=== PATIENT | female | born 1960 | race Caucasian/White ===

== ENCOUNTER 2016-08-27 21:03 | Inpatient (IN) | payer OTHER ==
[2016-08-27 21:21] VITALS: BMI 34.0
--- NOTE | 2016-08-27 21:40 | PDOC ---
History of Present Illness <Justyn Buchanan - Last Filed: 08/27/16 21:40> <Clemente Diaz - Last Filed: 08/27/16 21:40> - General History Source: Patient Exam Limitations: No Limitations - History of Present Illness Initial Comments: 08/27/16 22:00 56-year-old female with significant past medical for diabetes, liver cirrhosis and significant surgical history of x 4, spleenectomy, cholecystectomy , cardiac ablation. She is here with complaints of left lower leg/padilla pain, status post slipping and falling down 5-6 stairs at home. She states that stairs are carpeted and she did not feel dizzy or have a headache at time of fall. She denies any blurry vision, headache, no LOC, no fever, no chills, no dypsnea, no dysphagia, no tingling, no numbness, no motor or sensory deficits noted. Occurred: reports: just prior to arrival Severity: reports: severe Pain Location: reports: lower extremity Method of Injury: Yes: fall Modifying Factors: improves with: None Loss of Consciousness: no loss of consciousness Associated Symptoms (Fall): denies symptoms <Declan Villa - Last Filed: 08/27/16 23:04> - General Chief Complaint: Pain, Acute Stated Complaint: FELL DOWNSTAIRS Time Seen by Provider: 08/27/16 21:25 Past History - Past Medical History Anemia: No Asthma: Yes Cancer: No Cardiac Disorders: Yes (PALPITATION) CVA: No COPD: Yes CHF: No Dementia: No Diabetes: Yes GI Disorders: Yes Disorders: No HTN: Yes Hypercholesterolemia: No Liver Disease: Yes (cirrhosis, hep c) Seizures: No Thyroid Disease: No Lung CA: (CIRRHOSIS--ALCOHOLIC. S/P DRINKER 21 YRS AGO) - Surgical History Abdominal Surgery: Yes (SPLENECTOMY) Appendectomy: No Cardiac Surgery: No Cholecystectomy: Yes Lung Surgery: No Neurologic Surgery: No Orthopedic Surgery: No - Immunization History Immunization Up to Date: Yes - Psycho/Social/Smoking Cessation Hx Anxiety: No Suicidal Ideation: No Smoking History: Never smoked Have you smoked in the past 12 months: No Hx Alcohol Use: No Drug/Substance Use Hx: No Substance Use Type: None Hx Substance Use Treatment: No <Justyn Buchanan - Last Filed: 12/31/16 21:40> <Clemente Diaz - Last Filed: 08/27/16 21:40> <Declan Villa - Last Filed: 08/27/16 23:04> - Past Medical History Allergies/Adverse Reactions: Allergies Allergy/AdvReac Type Severity Reaction Status Date / Time No Known Allergies Allergy Verified 08/27/16 21:19 Home Medications: Ambulatory Orders Budesonide/Formeterol Fumarate [SYMBICORT 160/4.5mcg -] 1 inh IH DAILY 12/25/13 Citalopram Hydrobromide [Celexa -] 20 mg PO DAILY 12/25/13 Montelukast Na [Singulair -] 10 mg PO HS 12/25/13 Metformin HCl [Glucophage] 1,000 mg PO BID 08/20/15 Amlodipine Besylate 10 mg PO DAILY 12/13/15 Albuterol 2.5/Ipratropium 0.5 [Duoneb -] 1 amp NEB Q6H PRN #0 amp 12/15/15 Albuterol 0.083% Nebulizer Rabia [Ventolin 0.083% Nebulizer Soln -] 1 neb NEB Q6H PRN 08/08/16 Cetirizine HCl [Zyrtec -] 10 mg PO DAILY 08/08/16 Fluticasone Prop 0.05% Nasal [Flonase -] 1 - 2 spray NS BID 08/08/16 Gabapentin 600 mg PO TID 08/08/16 Hydrochlorothiazide [Hctz -] 12.5 mg PO DAILY 08/08/16 Loratadine [Claritin] 10 mg PO DAILY 08/08/16 Losartan Potassium 100 mg PO DAILY 08/08/16 Rifaximin [Xifaxan -] 550 mg PO BID 08/08/16 Tramadol HCl [Ultram -] 50 mg PO Q8H PRN 08/08/16 Aspirin [Aspirin EC] 81 mg PO PRN PRN #14 tablet. 08/09/16 *Physical Exam - Vital Signs Last Vital Signs Temp Pulse Resp BP Pulse Ox 98.3 F 78 20 138/75 100 08/27/16 21:17 08/27/16 21:17 08/27/16 21:17 08/27/16 21:17 08/27/16 21:20 <Justyn Buchanan - Last Filed: 08/27/16 21:40> - Vital Signs Last Vital Signs Temp Pulse Resp BP Pulse Ox 98.3 F 78 20 138/75 100 08/27/16 21:17 08/27/16 21:17 08/27/16 21:17 08/27/16 21:17 08/27/16 21:20 <EmilyClemente - Last Filed: 08/27/16 21:40> - Vital Signs Last Vital Signs Temp Pulse Resp BP Pulse Ox 98.3 F 78 20 138/75 100 08/27/16 21:17 08/27/16 21:17 08/27/16 21:17 08/27/16 21:17 08/27/16 21:20 - Physical Exam General Appearance: Yes: Nourished HEENT: positive: SIRISHA Neck: positive: Trachea midline, Normal Thyroid, Supple Respiratory/Chest: positive: Lungs Clear, Normal Breath Sounds, Respiratory Distress, Accessory Muscle Use Cardiovascular: positive: Regular Rhythm, Regular Rate, S1, S2 Vascular Pulses: Doralis-Pedis (L): 4+ Gastrointestinal/Abdominal: positive: Soft Musculoskeletal: positive: Decreased Range of Motion (Left lower leg tenderness. 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 Patient had x-rays done which shows comminuted spiral distal fracture of the left tibia. labs drawn with results pending. Chest x-ray done for preop. Mills inserted he in ER. Pain medication given with moderate control. 22:15H Dr Montiel consulted with recommendations appreciated. Splint applied here in ER. Patient to be admitted to Hospitalist service with ortho consult on 08/28/16. <Declan Villa - Last Filed: 08/27/16 23:04> Medical Decision Making - Medical Decision Making 08/27/16 23:03 Patient to be admitted to hospital for surgical fixation of left tibial fracture. <Declan Villa - Last Filed: 08/27/16 23:04> *DC/Admit/Observation/Transfer <Justyn Buchanan - Last Filed: 08/27/16 21:40> - Attestations Scribe Attestion: 08/27/16 21:40 Documentation prepared by Clemente Diaz, acting as resident medical officer for Justyn Buchanan MD. <Clemente Diaz - Last Filed: 08/27/16 21:40> - Discharge Dispostion Admit: Yes <Declan Villa - Last Filed: 08/27/16 23:04> Diagnosis at time of Disposition: Fall (on) (from) other stairs and steps, initial encounter Closed tibial fracture Qualifiers: Encounter type: initial encounter Tibia location: shaft Fracture morphology: oblique Fracture alignment: nondisplaced Laterality: left Qualified Code(s): S82.235A - Nondisplaced oblique fracture of shaft of left tibia, initial encounter for closed fracture - Discharge Dispostion Condition at time of disposition: Stable - Referrals Referrals: Leilani Ledbetter MD [Primary Care Provider] -
[2016-08-27] MEDS ORDERED: KETOROLAC TROMETHAMINE 60 MG/2 ML VIAL IM ONE (21:51)
[2016-08-27] MEDS ORDERED: morphine CARPU-JECT 2 MG/1 ML DISP.SYRIN IM ONE (21:51)
[2016-08-27] MEDS ORDERED: morphine CARPU-JECT 2 MG/1 ML DISP.SYRIN ONE (21:55)
[2016-08-27] MEDS ORDERED: HYDROmorphone HCL CARPU-JECT 2 MG/1 ML DISP.SYRIN IVPUSH ONE (22:48)
[2016-08-27] MEDS ORDERED: HYDROmorphone HCL CARPU-JECT 2 MG/1 ML DISP.SYRIN ONE (22:50)
[2016-08-27] MEDS: SODIUM CHLORIDE 1,000 ML IV SCH (22:57)
[2016-08-27 23:19] LABS: BASOPHIL 0.6 % (0-2.0); EOSINOPHIL 1.5 % (0-4.5); MCH 28.8 pg (25.7-33.7); MCHC 32.2 g/dl (32.0-36.0); MEAN CELL VOLUME 89.3 fl (80-96); MEAN PLT VOLUME 9.8 fl (7.5-11.1); NEUTROPHILS 37.6 % (42.8-82.8); PLATELET COUNT 223 K/MM3 (134-434); RDW 14.7 % (11.6-15.6); WHITE BLOOD COUNT 9.7 K/mm3 (4.0-10.0)
[2016-08-27 23:24] LABS: INR 1.2 (0.82-1.09); PROTHROMBIN TIME (PATIENT) 13.3 SEC (9.98-11.88)
--- NOTE | 2016-08-27 23:25 | PDOC ---
*Physical Exam - Vital Signs Last Vital Signs Temp Pulse Resp BP Pulse Ox 98.3 F 78 20 138/75 100 08/27/16 21:17 08/27/16 21:17 08/27/16 21:17 08/27/16 21:17 08/27/16 21:20 - Physical Exam Comments: 08/27/16 23:25 The patient was examined by [MATY Villa] under my direct supervision. I personally evaluated the patient. I concur with the above findings and the plan of care. ED Treatment Course - LABORATORY CBC & Chemistry Diagram: 08/27/16 22:40 08/27/16 22:40 - Medications Given in the ED: ED Medications Discontinued Medications Generic Name Dose Route Start Last Admin Trade Name Freq PRN Reason Stop Dose Admin Hydromorphone HCl 2 mg 08/27/16 22:48 08/27/16 22:57 Dilaudid Injection - IVPUSH 08/27/16 22:49 2 mg ONCE ONE Administration Morphine Sulfate 2 mg 08/27/16 21:51 08/27/16 21:53 Morphine Injection - IM 08/27/16 21:52 2 mg ONCE ONE Administration *DC/Admit/Observation/Transfer Diagnosis at time of Disposition: Fall (on) (from) other stairs and steps, initial encounter Closed tibial fracture Qualifiers: Encounter type: initial encounter Tibia location: shaft Fracture morphology: oblique Fracture alignment: nondisplaced Laterality: left Qualified Code(s): S82.235A - Nondisplaced oblique fracture of shaft of left tibia, initial encounter for closed fracture - Discharge Dispostion Condition at time of disposition: Stable
[2016-08-27 23:26] LABS: ACTIVATED PTT 35.6 SECONDS (26.9-34.4)
--- NOTE | 2016-08-27 23:30 | PN ---
<Velma Del Angel - Last Filed: 08/27/16 23:30> Teaching Attending Note Name of Resident: Beverly Rodriguez ATTENDING PHYSICIAN STATEMENT I saw and evaluated the patient. I reviewed the resident's note and discussed the case with the resident. I agree with the resident's findings and plan as documented. SUBJECTIVE: OBJECTIVE: ASSESSMENT AND PLAN: <Eric Ricks - Last Filed: 08/28/16 02:48> Teaching Attending Note Name of Resident: Beverly Rodriguez ATTENDING PHYSICIAN STATEMENT I saw and evaluated the patient. I reviewed the resident's note and discussed the case with the resident. I agree with the resident's findings and plan as documented. SUBJECTIVE: 56 year old female, with past medical history of diabetes, liver cirrhosis, HTN , COPD, hep. C , depression, fibromyalgia, neuropathy, past surgical history of (x4), splenectomy, cholecystectomy and cardiac ablation. Presents with left lower leg pain after falling down 6 stairs at her home. OBJECTIVE: GENERAL: Awake, alert, and fully oriented, in no acute distress HEENT: Atraumatic. PERRLA, EOMI. Moist mucosa. No JVD LUNGS: No distress, speaks full sentences, clear to auscultation bilaterally HEART: Regular rate and rhythm, normal S1 and S2, no murmurs, rubs or gallops, peripheral pulses normal and equal bilaterally. ABDOMEN: Soft, nontender, normoactive bowel sounds. No guarding, no rebound. No masses EXTREMITIES: +Left lower extremity fracture at tibia, Limited range of motion of left leg, no edema. No clubbing or cyanosis. NEUROLOGICAL: Cranial nerves II through XII grossly intact. Normal speech, no focal sensorimotor deficits SKIN: Warm, Dry, normal turgor, no rashes or lesions noted. X-ray left lower extremity Impression: Comminuted spiral distal fracture left tibia CBCD WBC 9.7 K/mm3 (4.0-10.0) D 08/27/16 22:40 RBC 5.00 M/mm3 (3.60-5.2) 08/27/16 22:40 Hgb 14.4 GM/dL (10.7-15.3) 08/27/16 22:40 Hct 44.6 % (32.4-45.2) 08/27/16 22:40 MCV 89.3 fl (80-96) 08/27/16 22:40 MCHC 32.2 g/dl (32.0-36.0) 08/27/16 22:40 RDW 14.7 % (11.6-15.6) 08/27/16 22:40 Plt Count 223 K/MM3 (134-434) 08/27/16 22:40 MPV 9.8 fl (7.5-11.1) 08/27/16 22:40 CMP Sodium 140 mmol/L (136-145) 08/27/16 22:40 Potassium 4.4 mmol/L (3.5-5.1) 08/27/16 22:40 Chloride 99 mmol/L (98-107) 08/27/16 22:40 Carbon Dioxide 29 mmol/L (21-32) 08/27/16 22:40 Anion Gap 12 (8-16) 08/27/16 22:40 BUN 12 mg/dL (7-18) D 08/27/16 22:40 Creatinine 0.7 mg/dL (0.55-1.02) 08/27/16 22:40 Creat Clearance w eGFR > 60 (>60) 08/27/16 22:40 Calcium 9.2 mg/dL (8.5-10.1) 08/27/16 22:40 Total Bilirubin 0.9 mg/dL (0.2-1.0) D 08/27/16 22:40 AST 58 U/L (15-37) H 08/27/16 22:40 ALT 55 U/L (12-78) 08/27/16 22:40 Alkaline Phosphatase 177 U/L (45-117) H 08/27/16 22:40 Total Protein 8.0 g/dl (6.4-8.2) 08/27/16 22:40 Albumin 3.6 g/dl (3.4-5.0) 08/27/16 22:40 ASSESSMENT AND PLAN: 56 year old female, with cirrhosis, HTN, diabetes, presents s/p fall Left tibial fracture NPO IVF Type and Screen Coags Ortho consult Pain control 2.) Diabetes Fingerstick Q4 Hold metformin RAISS 3.) Hypertension Continue home meds 4.) COPD Not in exacerbation Continue home meds 5.) Cirrhosis, History of hep. C Continue home meds 6.) Depression Continue home meds 7.) DVT prophylaxis Low risk, prophylaxis after procedure as per ortho Admit to [facility] Documentation prepared by Eric Ricks, acting as medical insurance biller for Velma Del Angel D.O.
[2016-08-28] MEDS ORDERED: ALBUTEROL SO4 0.083% IH SOL 2.5 MG/3 ML VIAL.NEB. NEB PRN (00:18)
[2016-08-28] MEDS ORDERED: traMADol HCL 50 MG TABLET PO PRN (00:18)
[2016-08-28 00:44] LABS: ALBUMIN 3.6 g/dl (3.4-5.0); ANION GAP 12 (8-16); BILIRUBIN,TOTAL 0.9 mg/dL (0.2-1.0); CALCIUM 9.2 mg/dL (8.5-10.1); CO2 29 mmol/L (21-32); CREATININE 0.7 mg/dL (0.55-1.02); GLUCOSE,RANDOM 113 mg/dL (74-106); SGOT/AST 58 U/L (15-37); SGPT/ALT 55 U/L (12-78)
[2016-08-28 00:46] LABS: ALK PHOS 177 U/L (45-117)
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
[2016-08-28] MEDS ORDERED: traZODone HCL 50 MG TABLET (FP) PO ONE (02:04)
[2016-08-28] MEDS ORDERED: HYDROmorphone HCL CARPU-JECT 2 MG/1 ML DISP.SYRIN IVPB ONE (04:14)
[2016-08-28] MEDS: INSULIN SLIDING SCALE (NOVOLOG) 1 VIAL SQ SCH ×4 (06:13→22:43)
[2016-08-28] MEDS: GABAPENTIN 300 MG CAPSULE (FP) PO SCH ×3 (06:14→22:41)
[2016-08-28] MEDS: ALBUTEROL SO4 2.5/IPRATROPIUM 0.5 INH SOL 3 ML VIAL.NEB. NEB SCH ×4 (06:52→23:27)
--- NOTE | 2016-08-28 08:52 | PN ---
Physical Exam: SUBJECTIVE: Patient seen and examined patient is happy that she is not having surgery. LLE cast in place OBJECTIVE: Vital Signs Temperature 98 F 08/28/16 07:54 Pulse Rate 60 08/28/16 07:54 Respiratory Rate 16 08/28/16 07:54 Blood Pressure 93/47 08/28/16 07:54 O2 Sat by Pulse Oximetry (%) 99 08/27/16 23:37 GENERAL: The patient is awake, alert, and fully oriented, in no acute distress. HEAD: Normal with no signs of trauma. EYES: PERRL, extraocular movements intact, sclera anicteric, conjunctiva clear. No ptosis. ENT: Ears normal, nares patent, oropharynx clear without exudates, moist mucous membranes. NECK: Trachea midline, full range of motion, supple. LUNGS: Breath sounds equal, clear to auscultation bilaterally, no wheezes, no crackles, no accessory muscle use. HEART: Regular rate and rhythm, S1, S2 without murmur, rub or gallop. ABDOMEN: Soft, nontender, nondistended, normoactive bowel sounds, no guarding, no rebound, no hepatosplenomegaly, no masses. EXTREMITIES: 2+ pulses, warm, well-perfused, no edema. LLe cast in place NEUROLOGICAL: Cranial nerves II through XII grossly intact. Normal speech, gait not observed. PSYCH: Normal mood, normal affect. SKIN: Warm, dry, normal turgor, no rashes or lesions noted CBCD WBC 9.7 K/mm3 (4.0-10.0) D 08/27/16 22:40 RBC 5.00 M/mm3 (3.60-5.2) 08/27/16 22:40 Hgb 14.4 GM/dL (10.7-15.3) 08/27/16 22:40 Hct 44.6 % (32.4-45.2) 08/27/16 22:40 MCV 89.3 fl (80-96) 08/27/16 22:40 MCHC 32.2 g/dl (32.0-36.0) 08/27/16 22:40 RDW 14.7 % (11.6-15.6) 08/27/16 22:40 Plt Count 223 K/MM3 (134-434) 08/27/16 22:40 MPV 9.8 fl (7.5-11.1) 08/27/16 22:40 CMP Sodium 140 mmol/L (136-145) 08/27/16 22:40 Potassium 4.4 mmol/L (3.5-5.1) 08/27/16 22:40 Chloride 99 mmol/L (98-107) 08/27/16 22:40 Carbon Dioxide 29 mmol/L (21-32) 08/27/16 22:40 Anion Gap 12 (8-16) 08/27/16 22:40 BUN 12 mg/dL (7-18) D 08/27/16 22:40 Creatinine 0.7 mg/dL (0.55-1.02) 08/27/16 22:40 Creat Clearance w eGFR > 60 (>60) 08/27/16 22:40 Random Glucose 113 mg/dL (74-106) H D 08/27/16 22:40 Calcium 9.2 mg/dL (8.5-10.1) 08/27/16 22:40 Total Bilirubin 0.9 mg/dL (0.2-1.0) D 08/27/16 22:40 AST 58 U/L (15-37) H 08/27/16 22:40 ALT 55 U/L (12-78) 08/27/16 22:40 Alkaline Phosphatase 177 U/L (45-117) H 08/27/16 22:40 Total Protein 8.0 g/dl (6.4-8.2) 08/27/16 22:40 Albumin 3.6 g/dl (3.4-5.0) 08/27/16 22:40 Laboratory Results - last 24 hr 08/28/16 06:12 POC Glucometer 108 Active Medications Generic Name Dose Route Start Last Admin Trade Name Freq PRN Reason Stop Dose Admin Albuterol Sulfate 1 amp 08/28/16 00:18 Ventolin 0.083% Nebulizer Soln - NEB Q6H PRN ASTHMA Albuterol/Ipratropium 1 amp 08/28/16 06:30 08/28/16 06:52 Duoneb - NEB 1 amp QIDR MARILU Administration Amlodipine Besylate 10 mg 08/28/16 10:00 Norvasc - PO DAILY MARILU Budesonide/Formoterol Fumarate 1 puff 08/28/16 10:00 Symbicort 160/4.5mcg - IH BID [facility] Citalopram Hydrobromide 10 mg 08/28/16 10:00 Celexa - PO DAILY [facility] Fluticasone Propionate 1 spray 08/28/16 10:00 Flonase - NS BID MARILU Gabapentin 600 mg 08/28/16 06:00 08/28/16 06:14 Neurontin - PO 600 mg TID MARILU Administration Hydrochlorothiazide 12.5 mg 08/28/16 10:00 Hctz - PO DAILY [facility] Sodium Chloride 1,000 mls @ 125 mls/hr 08/27/16 23:00 08/27/16 22:57 Normal Saline - IV 125 mls/hr ASDIR MARILU Administration Insulin Aspart 1 vial 08/28/16 07:00 08/28/16 06:13 Novolog Vial Sliding Scale - SQ Not Given ACHS [facility] Protocol Loratadine 10 mg 08/28/16 10:00 Claritin - PO DAILY [facility] Losartan Potassium 100 mg 08/28/16 10:00 Cozaar - PO DAILY [facility] Montelukast Sodium 10 mg 08/28/16 22:00 Singulair - PO HS [facility] Rifaximin 550 mg 08/28/16 10:00 Xifaxan - PO BID [facility] Tramadol HCl 50 mg 08/28/16 00:18 08/28/16 01:31 Ultram - PO 50 mg Q8H PRN Administration PAIN Trazodone HCl 100 mg 08/28/16 22:00 Desyrel - PO HS [facility] Medication Instructions Recorded Budesonide/Formeterol Fumarate 1 inh IH DAILY 12/25/13 [SYMBICORT 160/4.5mcg -] Citalopram Hydrobromide [Celexa -] 10 mg PO DAILY 12/25/13 Montelukast Na [Singulair -] 10 mg PO HS 12/25/13 Metformin HCl [Glucophage] 1,000 mg PO BID 08/20/15 Amlodipine Besylate 10 mg PO DAILY 12/13/15 Albuterol 2.5/Ipratropium 0.5 1 amp NEB Q6H PRN #0 amp 12/15/15 [Duoneb -] Albuterol 0.083% Nebulizer Rabia 1 neb NEB Q6H PRN 08/08/16 [Ventolin 0.083% Nebulizer Soln -] Cetirizine HCl [Zyrtec -] 10 mg PO DAILY 08/08/16 Fluticasone Prop 0.05% Nasal 1 - 2 spray NS BID 08/08/16 [Flonase -] Gabapentin 600 mg PO TID 08/08/16 Hydrochlorothiazide [Hctz -] 12.5 mg PO DAILY 08/08/16 Loratadine [Claritin] 10 mg PO DAILY 08/08/16 Losartan Potassium 100 mg PO DAILY 08/08/16 Rifaximin [Xifaxan -] 550 mg PO BID 08/08/16 Tramadol HCl [Ultram -] 50 mg PO Q8H PRN 08/08/16 Aspirin [Aspirin EC] 81 mg PO PRN PRN #14 tablet. 08/09/16 Trazodone HCl 100 mg PO HS 08/28/16 ASSESSMENT/PLAN: Patient is a 56 year old female, with past medical history of diabetes, liver cirrhosis, HTN, COPD, hep. C , depression, fibromyalgia, neuropathy, past surgical history of (x4), spleenectomy, cholecystectomy and cardiac ablation. Presents with left lower leg pain after falling down 6 stairs at her home. # Acute Left tibial fracture : s/p cast , no need for sx at this time , continue IVF, Ortho consult . # T2DM Insulin with SS with coverage every 4hrs, Hold metformin for now # Diabetic peripheral neuropathy : On gabapentin continue # Hypertension: Blood pressure is on low side, will give bolus of IVF, will continue BP meds with holding parameter. Continue home meds # COPD/Asthma : stable ,Continue home meds # Liver Cirrhosis with hx of hep. C, continue Rifaximin # Hx of Depression on multiple drugs continue for now # DVT prophylaxis : Heparin sq Visit type - Emergency Visit Emergency Visit: Yes ED Registration Date: 08/27/16 Care time: The patient presented to the Emergency Department on the above date and was hospitalized for further evaluation of their emergent condition. - New Patient This patient is new to me today: Yes Date on this admission: 08/28/16 - Critical Care Critical Care patient: No
[2016-08-28] MEDS: SODIUM CHLORIDE 1,000 ML IV SCH ×3 (09:16→23:10)
[2016-08-28] MEDS ORDERED: PATIENT'S OWN MEDICATION (NON-FORMULARY) (Cetirizine Hcl 10 MG) PO SCH (10:00)
[2016-08-28] MEDS ORDERED: CITALOPRAM HYDROBROMIDE 20 MG TABLET (FP) PO SCH (10:00)
[2016-08-28] MEDS: RIFAXIMIN 550 MG TABLET (UD) PO SCH ×2 (10:05→22:41)
[2016-08-28] MEDS: HYDROCHLOROTHIAZIDE 12.5 MG CAPSULE (FP) PO SCH (10:05)
[2016-08-28] MEDS: CITALOPRAM HYDROBROMIDE 20 MG TABLET (FP) PO SCH (10:05)
[2016-08-28] MEDS: FLUTICASONE PROP 0.05% 16 GM NASAL SPRAY NS SCH ×2 (10:06→22:42)
[2016-08-28] MEDS: LOSARTAN POTASSIUM 50 MG TABLET (FP) PO SCH (10:06)
[2016-08-28] MEDS: amLODIPine BESYLATE 10 MG TABLET (FP) PO SCH (10:06)
[2016-08-28] MEDS: BUDESONIDE/FORMETEROL FUMARATE 160/4.5 mcg INHALER IH SCH ×2 (10:06→22:42)
[2016-08-28] MEDS: LORATADINE 10 MG TABLET PO SCH (10:06)
[2016-08-28] MEDS: HYDROmorphone HCL CARPU-JECT 2 MG/1 ML DISP.SYRIN IVPB PRN ×2 (10:56→18:10)
--- NOTE | 2016-08-28 11:09 | CONSULT ---
Consult - text type - Consultation Consultation Note: FULL CONSULT DICTATED IMP: LEFT TIBIAL SHAFT FX PLAN: CL REDUCTION---> CHAPARRO, PT-[place], [place]
--- NOTE | 2016-08-28 12:01 | CONS ---
DATE OF CONSULTATION: DATE OF DICTATION: 08/28/2016 The patient is a 56-year-old [id number] diabetic status post falling down a flight of stairs, complaining of pain in her left ankle. Evaluation in the emergency room revealed a left tibial fracture. She was splinted and admitted to the hospital and orthopedic consultation was requested. Patient denies pain in any other location besides her left lower extremity. On physical exam, she has supple C-spine, cranial nerve exam 2-12 is grossly intact, full range of motion of shoulder, elbow, wrist and fingers, 5/5 reflexes, intact sensation throughout. No tenderness along the C, T, L, S spine. No ecchymosis. Right lower extremity has full range of motion of the ankle, reflexes. Left leg has some swelling and tenderness over the left distal tibia. Calf is soft, nontender, and all 4 compartments are soft and nontender. No increased pain with dorsi- or plantar flexion of the toes. Good motion of hip and knee. Ankle motion produces pain at the distal one-third of the tibial shaft. 2+ pulses and intact sensation throughout. X-rays showed an oblique distal one-third tibial shaft fracture above the ankle joint. IMPRESSION: Fracture as described. PLAN: Closed reduction and application of long leg cast, ice, elevation, PT, nonweightbearing. Discharge to home tomorrow if stable with physical therapy. Follow up in my office in 7 to 10 days. CHEN SIMONS M.D. [id number]
--- NOTE | 2016-08-28 13:20 | EKG ---
Test Reason : Blood Pressure : / mmHG Vent. Rate : 091 BPM Atrial Rate : 091 BPM P-R Int : 126 ms QRS Dur : 090 ms QT Int : 404 ms P-R-T Axes : 058 042 020 degrees QTc Int : 496 ms NORMAL SINUS RHYTHM POSSIBLE LEFT ATRIAL ENLARGEMENT CANNOT RULE OUT ANTERIOR INFARCT (CITED ON OR BEFORE 27-AUG-2016) T WAVE ABNORMALITY, CONSIDER ANTERIOR ISCHEMIA WHEN COMPARED WITH ECG OF 08-AUG-2016 10:50, NO SIGNIFICANT CHANGE WAS FOUND Confirmed by MD RADHA, SLAVA ([id number]) on 08/28/2016 1:20:28 PM Referred By: Overread By: SLAVA GARCIA MD
[2016-08-28] MEDS ORDERED: traZODone HCL 50 MG TABLET (FP) ONE (21:10)
[2016-08-28] MEDS: MONTELUKAST NA 10 MG TABLET PO SCH (22:41)
[2016-08-28] MEDS: traZODone HCL 100 MG TABLET (FP) PO SCH (22:41)
[2016-08-29] MEDS: HYDROmorphone HCL CARPU-JECT 2 MG/1 ML DISP.SYRIN IVPB PRN (02:05)
[2016-08-29] MEDS: GABAPENTIN 300 MG CAPSULE (FP) PO SCH ×3 (06:35→21:59)
[2016-08-29] MEDS: ALBUTEROL SO4 2.5/IPRATROPIUM 0.5 INH SOL 3 ML VIAL.NEB. NEB SCH ×3 (06:54→17:15)
[2016-08-29] MEDS: INSULIN SLIDING SCALE (NOVOLOG) 1 VIAL SQ SCH ×3 (07:15→16:58)
[2016-08-29] MEDS: oxyCODONE HCL 5 MG TABLET PO PRN ×3 (08:40→19:38)
[2016-08-29] MEDS: LORATADINE 10 MG TABLET PO SCH (09:49)
[2016-08-29] MEDS: LOSARTAN POTASSIUM 50 MG TABLET (FP) PO SCH (09:49)
[2016-08-29] MEDS: CITALOPRAM HYDROBROMIDE 20 MG TABLET (FP) PO SCH (09:49)
[2016-08-29] MEDS: amLODIPine BESYLATE 10 MG TABLET (FP) PO SCH (09:50)
[2016-08-29] MEDS: BUDESONIDE/FORMETEROL FUMARATE 160/4.5 mcg INHALER IH SCH ×2 (09:50→22:00)
[2016-08-29] MEDS: HYDROCHLOROTHIAZIDE 12.5 MG CAPSULE (FP) PO SCH (09:50)
[2016-08-29] MEDS: RIFAXIMIN 550 MG TABLET (UD) PO SCH ×2 (09:50→21:59)
[2016-08-29] MEDS: FLUTICASONE PROP 0.05% 16 GM NASAL SPRAY NS SCH ×2 (09:50→22:00)
[2016-08-29 18:36] VITALS: BP 104/55; PULSE 94; TEMP 100.7
--- NOTE | 2016-08-29 19:09 | DS ---
Physical Examination Vital Signs: Vital Signs Temperature 98.8 F 08/29/16 15:37 Pulse Rate 90 08/29/16 15:37 Respiratory Rate 16 08/29/16 15:37 Blood Pressure 102/50 08/29/16 15:37 O2 Sat by Pulse Oximetry (%) 94 L 08/29/16 09:00 Findings/Remarks: denies any fever or chills. pain is better in her knee. Constitutional: Yes: Well Nourished, No Distress, Calm Eyes: Yes: Conjunctiva Clear HENT: Yes: Atraumatic Neck: Yes: Supple, Trachea Midline Cardiovascular: Yes: Regular Rate and Rhythm Respiratory: Yes: Regular, CTA Bilaterally Gastrointestinal: Yes: Normal Bowel Sounds, Soft Extremities: Yes: Other (L LE cast , nl sensation on L foot , warm feet . no edema on R LE) Discharge Summary Reason For Visit: CLOSED TIBIAL FRACTURE Current Active Problems Abdominal pain (Acute) Cholelithiasis (Acute) Closed tibial fracture (Acute) Diabetes mellitus (Acute) Fall (on) (from) other stairs and steps, initial encounter (Acute) Increased ammonia level (Acute) Hospital Course: 56 y/o lady with h/o cirrhosis , DM and other medical problems who presented after a mechanical fall ( slipped on the stairs) . Trauma w/u on admission showed L distal Tibial Fx . she wa admitted as she could not move. she was seen by ortho yesterday and a cast was placed on LEg after external reduction . she was evaluated by PT and she was not appropriate for crutches use. she needed a wheel chair. she was continued on her home meds except fro tramadol as she was placed on oxy on dc . she will need services and VNA was arranged for her she is to follow with Ortho as outpt and PCP Condition: Improved - Instructions Diet, Activity, Other Instructions: please follow up with dr. Montiel in 2 weeks No weight baring on L leg use crutches take oxycodone for pain, hold tramadol no driving while on pain meds or in cast Referrals: Shashank Montiel MD [Staff Physician] - 2 Weeks Leilani Ledbetter MD [Primary Care Provider] - 1 Week Disposition: VNS/HOME HEALTH CARE - Home Medications Comprehensive Discharge Medication List: Ambulatory Orders Montelukast Na [Singulair -] 10 mg PO HS 12/25/13 Metformin HCl [Glucophage] 1,000 mg PO BID 08/20/15 Amlodipine Besylate 10 mg PO DAILY 12/13/15 Albuterol 2.5/Ipratropium 0.5 [Duoneb -] 1 amp NEB Q6H PRN #0 amp 12/15/15 Albuterol 0.083% Nebulizer Rabia [Ventolin 0.083% Nebulizer Soln -] 1 neb NEB Q6H PRN 08/08/16 Cetirizine HCl [Zyrtec -] 10 mg PO DAILY 08/08/16 Fluticasone Prop 0.05% Nasal [Flonase -] 1 - 2 spray NS BID 08/08/16 Gabapentin 600 mg PO BID 08/08/16 Hydrochlorothiazide [Hctz -] 12.5 mg PO DAILY 08/08/16 Loratadine [Claritin] 10 mg PO DAILY 08/08/16 Losartan Potassium 100 mg PO DAILY 08/08/16 Rifaximin [Xifaxan -] 550 mg PO BID 08/08/16 Aspirin [Aspirin EC] 81 mg PO PRN PRN #14 tablet. 08/09/16 Trazodone HCl 100 mg PO HS 08/28/16 Escitalopram Oxalate [Lexapro -] 10 mg PO DAILY 08/29/16 Miscellaneous Drug Not In Syst [Outpatient Lab Test] 1 each ASDIR #1 [facility] [place] Miscellaneous Medical Supply [Outpatient Order] 1 each ASDIR #[place] [facility] [place] Oxycodone HCl [Roxicodone -] 5 mg PO Q8H PRN #15 tablet MDD 3 tab 08/29/16 This patient is new to me today: Yes Date on this admission: 08/29/16 Emergency Visit: Yes ED Registration Date: 08/27/16 Care time: The patient presented to the Emergency Department on the above date and was hospitalized for further evaluation of their emergent condition. Critical Care patient: No - Discharge Referral Referred to [facility] No
[2016-08-29] MEDS ORDERED: traZODone HCL 50 MG TABLET (FP) ONE ×2 (21:52→21:53)
[2016-08-29] MEDS: traZODone HCL 100 MG TABLET (FP) PO SCH (21:58)
[2016-08-29] MEDS: MONTELUKAST NA 10 MG TABLET PO SCH (21:59)
== END 2016-08-29 23:00 | disposition home health service (06) | DRG 342 ==
LOC: JER 21:03 → JERBED 22:45 → J8W 23:43
PROVIDERS: ADMIT Internal Medicine; ATTEND Internal Medicine
PROC: 0QSHXZZ Reposition Left Tibia, External Approach (ICD-10-PCS; principal; 2016-08-28)
PROC: 2W3MX2Z Immobilization of Left Lower Extremity using Cast (ICD-10-PCS; 2016-08-28)
DX: S82.235A Nondisplaced oblique fracture of shaft of left tibia, initial encounter for closed fracture (principal); W10.8XXA Fall (on) (from) other stairs and steps, initial encounter; Y93.89 Activity, other specified; Y92.098 Other place in other non-institutional residence as the place of occurrence of the external cause; J44.9 Chronic obstructive pulmonary disease, unspecified; K74.60 Unspecified cirrhosis of liver; F32.9 Major depressive disorder, single episode, unspecified; M79.7 Fibromyalgia; I73.89 Other specified peripheral vascular diseases; M54.89 Other dorsalgia; I10 Essential (primary) hypertension; E11.42 Type 2 diabetes mellitus with diabetic polyneuropathy
CPT/HCPCS: 36415; 71010-TC; 73590-TC-LT; 80053; 85025; 85610; 85730; 86850; 86900; 86901; 93005; 93010; 94640; 97001-GP; 97116-GP; 99284-25

== ENCOUNTER 2016-09-02 12:21 | Emergency (ER) | payer OTHER ==
[2016-09-02] MEDS ORDERED: KETOROLAC TROMETHAMINE 60 MG/2 ML VIAL IM ONE (12:57)
[2016-09-02] MEDS ORDERED: traMADol HCL 50 MG TABLET PO ONE (12:57)
--- NOTE | 2016-09-02 13:03 | PDOC ---
History of Present Illness - General History Source: Patient - History of Present Illness Occurred: reports: other Severity: reports: severe Pain Location: reports: pelvis <Laisha Rodriguez - Last Filed: 09/02/16 14:15> <Renaldo Stock - Last Filed: 09/05/16 11:06> - General Chief Complaint: Back Pain Stated Complaint: BACK PAIN Time Seen by Provider: 09/02/16 12:46 Past History - Past Medical History Anemia: No Asthma: Yes Cancer: No Cardiac Disorders: Yes (PALPITATION) CVA: No COPD: Yes CHF: No Dementia: No Diabetes: Yes GI Disorders: Yes Disorders: No HTN: Yes Hypercholesterolemia: No Liver Disease: Yes (cirrhosis, hep c) Seizures: No Thyroid Disease: No Lung CA: (CIRRHOSIS--ALCOHOLIC. S/P DRINKER 21 YRS AGO) - Surgical History Abdominal Surgery: Yes (SPLENECTOMY) Appendectomy: No Cardiac Surgery: No Cholecystectomy: Yes Lung Surgery: No Neurologic Surgery: No Orthopedic Surgery: No - Immunization History Immunization Up to Date: Yes - Psycho/Social/Smoking Cessation Hx Anxiety: No Suicidal Ideation: No Smoking History: Never smoked Have you smoked in the past 12 months: No Hx Alcohol Use: No Drug/Substance Use Hx: No Substance Use Type: None Hx Substance Use Treatment: No <Laisha Rodriguez - Last Filed: 09/02/16 14:15> <Renaldo Stock - Last Filed: 09/05/16 11:06> - Past Medical History Allergies/Adverse Reactions: Allergies Allergy/AdvReac Type Severity Reaction Status Date / Time No Known Allergies Allergy Verified 09/02/16 13:00 Home Medications: Ambulatory Orders Montelukast Na [Singulair -] 10 mg PO HS 12/25/13 Metformin HCl [Glucophage] 1,000 mg PO BID 08/20/15 Amlodipine Besylate 10 mg PO DAILY 12/13/15 Albuterol 2.5/Ipratropium 0.5 [Duoneb -] 1 amp NEB Q6H PRN #0 amp 12/15/15 Albuterol 0.083% Nebulizer Rabia [Ventolin 0.083% Nebulizer Soln -] 1 neb NEB Q6H PRN 08/08/16 Cetirizine HCl [Zyrtec -] 10 mg PO DAILY 08/08/16 Fluticasone Prop 0.05% Nasal [Flonase -] 1 - 2 spray NS BID 08/08/16 Gabapentin 600 mg PO BID 08/08/16 Hydrochlorothiazide [Hctz -] 12.5 mg PO DAILY 08/08/16 Loratadine [Claritin] 10 mg PO DAILY 08/08/16 Losartan Potassium 100 mg PO DAILY 08/08/16 Rifaximin [Xifaxan -] 550 mg PO BID 08/08/16 Aspirin [Aspirin EC] 81 mg PO PRN PRN #14 tablet. 08/09/16 Trazodone HCl 100 mg PO HS 08/28/16 Escitalopram Oxalate [Lexapro -] 10 mg PO DAILY 08/29/16 Miscellaneous Drug Not In Syst [Outpatient Lab Test] 1 each ASDIR #1 [facility] [place] 10/14 Miscellaneous Medical Supply [Outpatient Order] 1 each ASDIR #1 [facility] [place] Oxycodone HCl [Roxicodone -] 5 mg PO Q8H PRN #15 tablet MDD 3 tab 08/29/16 Ibuprofen [Motrin -] 800 mg PO Q6H #30 tablet 09/02/16 Oxycodone HCl [Roxicodone -] 5 mg PO Q8H PRN #15 tablet MDD 15 mg 09/02/16 Review of Systems - Review of Systems Constitutional: No: Chills, Fever ABD/GI: No: Nausea, Vomiting : No: Dysuria, Hematuria <Evonne RodriguezAishwarya - Last Filed: 09/02/16 14:15> *Physical Exam - Physical Exam General Appearance: Yes: Appropriately Dressed. No: Apparent Distress HEENT: positive: Normal Voice Neck: positive: Supple Respiratory/Chest: negative: Respiratory Distress Gastrointestinal/Abdominal: positive: Soft. negative: Tender Musculoskeletal: negative: CVA Tenderness Extremity: positive: Tender (to lateral aspect of upper R gluteus, no rash, no deformity to RLE, FROMI) Integumentary: positive: Dry, Warm Neurologic: positive: Fully Oriented, Alert, Normal Mood/Affect <Laisha Rodriguez - Last Filed: 09/02/16 14:15> - Vital Signs Last Vital Signs Temp Pulse Resp BP Pulse Ox 98.2 F 83 20 104/67 100 09/02/16 12:21 09/02/16 16:26 09/02/16 16:26 09/02/16 16:26 09/02/16 16:26 <Renaldo Stock - Last Filed: 09/05/16 11:06> ED Treatment Course - RADIOLOGY Radiology Studies Ordered: Category Date Time Status HIP & PELVIS-RIGHT [RAD] Stat Radiology 09/02/16 12:57 Ordered SPINE-LUMBAR SACRAL [RAD] Stat Radiology 09/02/16 12:57 Ordered <Laisha Rodriguez - Last Filed: 09/02/16 14:15> - Medications Given in the ED: ED Medications Discontinued Medications Generic Name Dose Route Start Last Admin Trade Name Rafi PRN Reason Stop Dose Admin Ketorolac Tromethamine 60 mg 09/02/16 12:57 09/02/16 13:38 Toradol Injection - IM 09/02/16 12:58 60 mg ONCE ONE Administration Tramadol HCl 50 mg 09/02/16 12:57 09/02/16 13:38 Ultram - PO 09/02/16 12:58 50 mg ONCE ONE Administration <Renaldo Stock - Last Filed: 09/05/16 11:06> Medical Decision Making - Medical Decision Making 09/02/16 12:58 56-year-old female history of diabetes, hypertension, hep C cirrhosis, COPD, cardiac ablation, depression, status post recent admission for left lower extremity fracture in the setting of fall, had cast placed and was sent home on oxycodone w/ instructions to use W/C and given VNS and ortho f/u, returns today with severe pain to R hip/buttocks that started 3 days ago. Does not remember injuring area during fall and was not having any pain to site during recent admission. States she was told that she needed to use a wheelchair but that wheelchair has not been sent to her apartment, so has mostly been bed bound. States pain does not radiate and no incontinence, saddle anesthesia or weakness. Denies lower leg pain, swelling, CP, SOB or palpitations See exam L pelvis/hip pain s/p recent trauma Currently bed bound 2/2 L tibial fx, has cast in place Exam only remarkable for ttp to R upper/outer gluteus ? MSK as a result of being bed bound w/ limited movement at home, doubt fx, no e /o DVT at this time -pain control -XR -reassess 09/02/16 14:20 XR neg for fx. Patient reports significant improvement with meds. Pt requesting refill of her oxycodone as she is running out and wont be able to see ortho until next 2 weeks. Encouraged to move as much as possible in bed while a/w her wheelchair, in order to prevent stiffness of joint/muscles <Laisha Rodriguez - Last Filed: 09/02/16 14:15> - Medical Decision Making The patient was seen and evaluated in conjunction with MATY Botello under my direct supervision, ancillary studies were reviewed. I agree with the plan as outlined by MATY Rodriguez . <Renaldo Stock - Last Filed: 09/05/16 11:06> *DC/Admit/Observation/Transfer <Laisha Rodriguez - Last Filed: 09/02/16 14:15> <Renaldo Stock - Last Filed: 09/05/16 11:06> Diagnosis at time of Disposition: Hip pain Qualifiers: Laterality: right Qualified Code(s): M25.551 - Pain in right hip - Discharge Dispostion Disposition: HOME Condition at time of disposition: Improved - Prescriptions Prescriptions: Ibuprofen [Motrin -] 800 mg PO Q6H #30 tablet Oxycodone HCl [Roxicodone -] 5 mg PO Q8H PRN #15 tablet MDD 15 mg PRN Reason: Moderate Pain - Referrals Referrals: Leilani Ledbetter MD [Primary Care Provider] - - Patient Instructions Additional Instructions: Continue pain meds and follow up with orthopedics
[2016-09-02 13:10] VITALS: TEMP 98.2; BMI 34.0
[2016-09-02] MEDS ORDERED: KETOROLAC TROMETHAMINE 30 MG/1 ML VIAL ONE (13:29)
[2016-09-02] MEDS ORDERED: traMADol HCL 50 MG TABLET ONE (13:29)
[2016-09-02 16:27] VITALS: BP 104/67; PULSE 83
== END 2016-09-02 16:26 | disposition home or self-care (01) ==
LOC: JER 12:21
PROC: 3E0233Z Introduction of Anti-inflammatory into Muscle, Percutaneous Approach (ICD-10-PCS; principal; 2016-09-02)
DX: M25.551 Pain in right hip (principal); I10 Essential (primary) hypertension; E11.9 Type 2 diabetes mellitus without complications; Z79.84 Long term (current) use of oral hypoglycemic drugs; J45.909 Unspecified asthma, uncomplicated; J44.9 Chronic obstructive pulmonary disease, unspecified; K74.69 Other cirrhosis of liver; B19.20 Unspecified viral hepatitis C without hepatic coma
CPT/HCPCS: 72100-TC; 73523-TC; 96372; 99282-25

== ENCOUNTER 2017-03-12 21:20 | Emergency (ER) | payer OTHER ==
[2017-03-12 21:34] VITALS: BP 139/62; PULSE 73; TEMP 98; BMI 33.0
--- NOTE | 2017-03-12 21:56 | PDOC ---
History of Present Illness - General Chief Complaint: Rash Stated Complaint: RASH Time Seen by Provider: 03/12/17 21:41 History Source: Patient Exam Limitations: No Limitations - History of Present Illness Initial Comments: CHIEF COMPLAINT: 56 y/o female with PMH HTN, NIDDM, fibromyalgia c/o itchy rash since this morning. HISTORY OF PRESENT ILLNESS: The patient states she was gardening yesterday and this morning work up with an itchy rash. She states it seemed to get worse throughout the course of the day and she can't stop scratching. She did not take any medication for the itching. She denies cough, facial swelling, difficulty breathing, and all other symptoms. Vital signs on arrival are within normal limits. REVIEW OF SYSTEMS: GENERAL/CONSTITUTIONAL: No fever/chills. No weakness. No weight change. HEAD, EYES, EARS, NOSE AND THROAT: No change in vision. No ear pain or discharge. No sore throat. CARDIOVASCULAR: No chest pain or shortness of breath. MUSCULOSKELETAL: No joint or muscle swelling or pain. No neck or back pain. SKIN: +itchy rash to arms, neck, chest and legs NEUROLOGIC: No headache, vertigo, loss of consciousness, or loss of sensation. PHYSICAL EXAM: GENERAL: The patient is awake, alert, and fully oriented, in no acute distress. She is very well appearing, ambulatory, in NAD or obvious discomfort. HEAD: Normal with no signs of trauma. ENT: PERRLA. No angioedema. No lip or tongue swelling. LUNGS: CTA without wheezing, rhonchi, rales, crackles. EXTREMITIES: Normal range of motion, no edema. NEUROLOGICAL: Normal speech, normal gait. SKIN: scattered urticaria on b/l forearms, upper arms, neck, anterior chest. Few scattered small urticaria on legs. Past History - Past Medical History Allergies/Adverse Reactions: Allergies Allergy/AdvReac Type Severity Reaction Status Date / Time No Known Allergies Allergy Verified 03/12/17 21:27 Home Medications: Ambulatory Orders Montelukast Na [Singulair -] 10 mg PO HS 12/25/13 Metformin HCl [Glucophage] 1,000 mg PO BID 08/20/15 Amlodipine Besylate 10 mg PO DAILY 12/13/15 Albuterol 2.5/Ipratropium 0.5 [Duoneb -] 1 amp NEB Q6H PRN #0 amp 12/15/15 Albuterol 0.083% Nebulizer Rabia [Ventolin 0.083% Nebulizer Soln -] 1 neb NEB Q6H PRN 08/08/16 Cetirizine HCl [Zyrtec -] 10 mg PO DAILY 08/08/16 Fluticasone Prop 0.05% Nasal [Flonase -] 1 - 2 spray NS BID 08/08/16 Gabapentin 600 mg PO BID 08/08/16 Hydrochlorothiazide [Hctz -] 12.5 mg PO DAILY 08/08/16 Loratadine [Claritin] 10 mg PO DAILY 08/08/16 Losartan Potassium 100 mg PO DAILY 08/08/16 Rifaximin [Xifaxan -] 550 mg PO BID 08/08/16 Aspirin [Aspirin EC] 81 mg PO PRN PRN #14 tablet. 08/09/16 Trazodone HCl 100 mg PO HS 08/28/16 Escitalopram Oxalate [Lexapro -] 10 mg PO DAILY 08/29/16 Miscellaneous Drug Not In Syst [Outpatient Lab Test] 1 each ASDIR #1 [facility] [place] Miscellaneous Medical Supply [Outpatient Order] 1 each ASDIR #1 misc Oxycodone HCl [Roxicodone -] 5 mg PO Q8H PRN #15 tablet MDD 3 tab 08/29/16 Ibuprofen [Motrin -] 800 mg PO Q6H #30 tablet 09/02/16 Oxycodone HCl [Roxicodone -] 5 mg PO Q8H PRN #15 tablet MDD 15 mg 09/02/16 Diphenhydramine [Benadryl 1% Cream -] 1 applic TP BID #1 tube 03/12/17 Prednisone [Deltasone -] 40 mg PO DAILY #8 tablet 03/12/17 Anemia: No Asthma: Yes Cancer: No Cardiac Disorders: Yes (PALPITATION) CVA: No COPD: Yes CHF: No Dementia: No Diabetes: Yes GI Disorders: Yes Disorders: No HTN: Yes Hypercholesterolemia: No Liver Disease: Yes (cirrhosis, hep c) Seizures: No Thyroid Disease: No Lung CA: (CIRRHOSIS--ALCOHOLIC. S/P DRINKER 21 YRS AGO) - Surgical History Abdominal Surgery: Yes (SPLENECTOMY) Appendectomy: No Cardiac Surgery: Yes (Ablation for SVT) Cholecystectomy: Yes Lung Surgery: No Neurologic Surgery: No Orthopedic Surgery: No - Immunization History Immunization Up to Date: Yes - Psycho/Social/Smoking Cessation Hx Anxiety: No Suicidal Ideation: No Smoking History: Never smoked Have you smoked in the past 12 months: No If you are a former smoker, when did you quit?: 1989 Information on smoking cessation initiated: No Hx Alcohol Use: No Drug/Substance Use Hx: No Substance Use Type: None Hx Substance Use Treatment: No *Physical Exam - Vital Signs Last Vital Signs Temp Pulse Resp BP Pulse Ox 98.0 F 73 20 139/62 96 03/12/17 21:30 03/12/17 21:30 03/12/17 21:30 03/12/17 21:30 03/12/17 21:30 Medical Decision Making - Medical Decision Making A/P: 56 y/o afebrile female with hives, possibly allergic reaction to gardening yesterday. Plan is as follows: 1. PO benadryl Will discharge to home with rx for benadryl cream and 4 day course of prednisone. Informed the patient that the prednisone may alter her sugars. Suggested she avoid scratching the area and use oatmeal baths for comfort. Instructed her to return to the ER with any worsening or concerning symptoms. The patient verbalizes understanding of all instructions, has no further questions and is awaiting discharge. *DC/Admit/Observation/Transfer Diagnosis at time of Disposition: Hives, Rash and nonspecific skin eruption - Discharge Dispostion Disposition: HOME Condition at time of disposition: Good - Prescriptions Prescriptions: Diphenhydramine [Benadryl 1% Cream -] 1 applic TP BID #1 tube Prednisone [Deltasone -] 40 mg PO DAILY #8 tablet - Referrals Referrals: Leilani Ledbetter MD [Primary Care Provider] - Call tomorrow - Patient Instructions Printed Discharge Instructions: DI for Hives, DI for Rash Additional Instructions: Discharge Instructions: -Prescriptions for benadryl cream and prednisone have been sent to your pharmacy ; please take as directed -Prednisone may elevate your blood sugar -Call your doctor tomorrow to schedule follow up appointment -return to the ER with any worsnening or concerning symptoms
[2017-03-12] MEDS ORDERED: diphenhydrAMINE HCL 25 MG CAPSULE (FP) PO ONE ×2 (22:04→22:07)
== END 2017-03-12 22:25 | disposition home or self-care (01) ==
LOC: JERFT 21:20
DX: L50.0 Allergic urticaria (principal); I10 Essential (primary) hypertension; E11.9 Type 2 diabetes mellitus without complications; Z79.84 Long term (current) use of oral hypoglycemic drugs; J45.909 Unspecified asthma, uncomplicated; B18.2 Chronic viral hepatitis C; K70.30 Alcoholic cirrhosis of liver without ascites
CPT/HCPCS: 99281-25

== ENCOUNTER 2017-03-14 15:10 | Observation (INO) | payer OTHER ==
[2017-03-14] MEDS ORDERED: ASPIRIN 325 MG TABLET PO ONE (15:31)
--- NOTE | 2017-03-14 15:37 | PDOC ---
History of Present Illness - General Chief Complaint: Lightheaded Stated Complaint: DIZZINESS, RASH Time Seen by Provider: 03/14/17 15:24 History Source: Patient - History of Present Illness Presenting Symptoms: Chest Pain, Dizziness, Short of Breath Timing/Duration: reports: intermittent Severity/Quality: reports: moderate Location: reports: substernal Chest Pain Radiation: reports: no radiation Past History - Past Medical History Allergies/Adverse Reactions: Allergies Allergy/AdvReac Type Severity Reaction Status Date / Time No Known Allergies Allergy Verified 03/14/17 15:14 Home Medications: Ambulatory Orders Escitalopram Oxalate [Lexapro -] 20 mg PO DAILY 03/14/17 Gabapentin 600 mg PO BID 03/14/17 Hydrochlorothiazide 25 mg PO DAILY 03/14/17 Metformin HCl [Metformin HCl ER] 1,000 mg PO BID 03/14/17 Montelukast Na [Singulair -] 10 mg PO HS 03/14/17 Trazodone HCl [Desyrel -] 150 mg PO HS 03/14/17 Anemia: No Asthma: Yes Cancer: No Cardiac Disorders: Yes (PALPITATION) CVA: No COPD: Yes CHF: No Dementia: No Diabetes: Yes GI Disorders: Yes Disorders: No HTN: Yes Hypercholesterolemia: No Liver Disease: Yes (cirrhosis, hep c) Seizures: No Thyroid Disease: No Lung CA: (CIRRHOSIS--ALCOHOLIC. S/P DRINKER 21 YRS AGO) - Surgical History Abdominal Surgery: Yes (SPLENECTOMY) Appendectomy: No Cardiac Surgery: Yes (Ablation for SVT) Cholecystectomy: Yes Lung Surgery: No Neurologic Surgery: No Orthopedic Surgery: No - Immunization History Immunization Up to Date: Yes - Psycho/Social/Smoking Cessation Hx Anxiety: No Suicidal Ideation: No Smoking History: Never smoked Have you smoked in the past 12 months: No If you are a former smoker, when did you quit?: 1989 Information on smoking cessation initiated: No Hx Alcohol Use: No Drug/Substance Use Hx: No Substance Use Type: None Hx Substance Use Treatment: No Cardiac Specific PMH - Complaint Specific PMHX Pacemaker: No Review of Systems - Review of Systems Constitutional: No: Chills, Fever Respiratory: Yes: Shortness of Breath Cardiac (ROS): Yes: Chest Pain, Lightheadedness. No: Palpitations ABD/GI: No: Nausea, Vomiting Integumentary: Yes: Pruritus, Rash *Physical Exam - Vital Signs Last Vital Signs Temp Pulse Resp BP Pulse Ox 98 F 76 18 121/72 98 03/14/17 15:11 03/14/17 15:11 03/14/17 15:11 03/14/17 15:11 03/14/17 15:11 - Physical Exam General Appearance: Yes: Appropriately Dressed. No: Apparent Distress HEENT: positive: Normal Voice. negative: Scleral Icterus (R), Scleral Icterus ( L) Neck: positive: Supple Respiratory/Chest: positive: Lungs Clear, Normal Breath Sounds. negative: Respiratory Distress Cardiovascular: positive: Regular Rate, S1, S2 Gastrointestinal/Abdominal: positive: Soft. negative: Tender Integumentary: positive: Dry, Warm, Rash (papular rash to b/l upper extremities , neck and trunk) Neurologic: positive: Fully Oriented, Alert, Normal Mood/Affect Heart Score/ECG Review - History History: Slightly suspicious - Electrocardiogram EKG: Non specific repolarization disturbance - Age Age: 45-65 - Risk Factors Risk Factors Heart Score: Yes Hx Hypertension, Yes Hx Diabetes Based on the list above the patient has:: 1-2 risk factors - Troponin Troponin: </= normal limit - Score Heart Score - Total: 3 ED Treatment Course - LABORATORY CBC & Chemistry Diagram: 03/14/17 15:51 03/14/17 15:51 - ADDITIONAL ORDERS Additional order review: Laboratory Results 03/14/17 03/14/17 15:51 15:31 Sodium 139 Potassium 3.7 Chloride 99 Carbon Dioxide 32 Anion Gap 8 BUN 13 Creatinine 0.9 D Creat Clearance w eGFR > 60 Random Glucose 89 D Calcium 9.2 Total Bilirubin 1.2 H D AST 72 H D ALT 70 D Alkaline Phosphatase 184 H Creatine Kinase 227 H D Troponin I < 0.02 B-Natriuretic Peptide 67.18 Total Protein 7.9 Albumin 3.7 03/14/17 15:51 RBC 4.49 MCV 90.5 MCHC 32.9 RDW 15.0 MPV 9.6 Neutrophils % 71.9 D Lymphocytes % 20.8 D Monocytes % 7.1 Eosinophils % 0.0 D Basophils % 0.2 - RADIOLOGY Radiology Studies Ordered: Category Date Time Status CHEST X-RAY PORTABLE* [RAD] Stat Radiology 03/14/17 15:30 Taken - Medications Given in the ED: ED Medications Discontinued Medications Generic Name Dose Route Start Last Admin Trade Name Freq PRN Reason Stop Dose Admin Aspirin 325 mg 03/14/17 15:31 03/14/17 15:59 Asa - PO 03/14/17 15:32 325 mg ONCE ONE Administration Diphenhydramine HCl 25 mg 03/14/17 15:43 03/14/17 15:25 Benadryl - PO 03/14/17 15:44 25 mg ONCE ONE Administration Medical Decision Making - Medical Decision Making 03/14/17 15:32 56-year-old female, history of hypertension, [id number] diabetes, fibromyalgia, presenting with chest pain. Patient states while gardening at work about an hour ago, she started having sharp, substernal, non-radiating chest pain that has been intermittent with no exacerbating or alleviating factors. Also complaining of some shortness of breath w/ diaphoresis and dizziness. States symptoms have since resolved. Patient reports that she's had similar episodes in the past that usually resolves on its own. Had negative stress test last year. Of note, pt was seen in ED 2 days ago for rash 2 /2 ? posion henry and sent home w/ short prednisone taper See exam Recurrent CP 1 hr ago Since resolved Well shanae and stable in ED w/ unremarkable exam R/o ACS, less likely PE or dissection -asa -ekg -labs -dispo pending 03/14/17 15:38 03/14/17 15:43 03/14/17 16:[address] Montalvo, given concerning story, will admit to obs tele overnight 03/14/17 16:36 03/14/17 17:11 Labs unremarkable. Pt feeling better. Will admit to tele obs as d/w ED attg 03/14/17 17:13 03/14/17 17:25 Case d/w admitting team and pt admitted *DC/Admit/Observation/Transfer Diagnosis at time of Disposition: Chest pain Qualifiers: Chest pain type: unspecified Qualified Code(s): R07.9 - Chest pain, unspecified - Discharge Dispostion Condition at time of disposition: Stable Admit: Yes Decision to Admit order Date/Time: Decision to Admit Order Category Date Time Status Decision to Admit to Hospital Routine Admission 03/14/17 17:25 Active - Referrals Referrals: Leilani Ledbetter MD [Primary Care Provider] -
[2017-03-14] MEDS ORDERED: diphenhydrAMINE HCL 25 MG CAPSULE (FP) PO ONE ×3 (15:43→21:03)
[2017-03-14] MEDS ORDERED: ASPIRIN 325 MG TABLET ONE (15:47)
--- NOTE | 2017-03-14 16:08 | PDOC ---
*Physical Exam - Vital Signs Last Vital Signs Temp Pulse Resp BP Pulse Ox 98 F 76 18 121/72 98 03/14/17 15:11 03/14/17 15:11 03/14/17 15:11 03/14/17 15:11 03/14/17 15:11 ED Treatment Course - Medications Given in the ED: ED Medications Discontinued Medications Generic Name Dose Route Start Last Admin Trade Name Rafi PRN Reason Stop Dose Admin Aspirin 325 mg 03/14/17 15:31 03/14/17 15:59 Asa - PO 03/14/17 15:32 325 mg ONCE ONE Administration Diphenhydramine HCl 25 mg 03/14/17 15:43 03/14/17 15:25 Benadryl - PO 03/14/17 15:44 25 mg ONCE ONE Administration Medical Decision Making - Medical Decision Making 03/14/17 16:07 Patient seen and evaluated with the nurse practitioner. I agree with the overall evaluation, assessment, and management with the following summary of visit: 56-year-old female with hypertension and diabetes presents with chest pain at rest. Last stress test was one year ago and was reportedly normal. EKG shows no acute ischemic changes Cardiac workup, given risk factors and heart score of 3 without prompt cardiology follow-up, likely monitor on observation telemetry.
[2017-03-14 16:47] LABS: BASOPHIL 0.2 % (0-2.0); MCH 29.8 pg (25.7-33.7); MCHC 32.9 g/dl (32.0-36.0); MEAN CELL VOLUME 90.5 fl (80-96); MEAN PLT VOLUME 9.6 fl (7.5-11.1); NEUTROPHILS 71.9 % (42.8-82.8); PLATELET COUNT 189 K/MM3 (134-434); WHITE BLOOD COUNT 13.2 K/mm3 (4.0-10.0)
[2017-03-14 16:53] LABS: ALBUMIN 3.7 g/dl (3.4-5.0); ANION GAP 8 (8-16); BILIRUBIN,TOTAL 1.2 mg/dL (0.2-1.0); CALCIUM 9.2 mg/dL (8.5-10.1); CO2 32 mmol/L (21-32); CREATININE 0.9 mg/dL (0.55-1.02); GLUCOSE,RANDOM 89 mg/dL (74-106); SGOT/AST 72 U/L (15-37); SGPT/ALT 70 U/L (12-78); TOT PROT 7.9 g/dl (6.4-8.2)
[2017-03-14 16:55] LABS: ALK PHOS 184 U/L (45-117); TROPONIN I < 0.02 ng/ml (0.00-0.05)
--- NOTE | 2017-03-14 17:25 | HP ---
Admitting History and Physical - Past Medical History Hepatobiliary: Yes: Cirrhosis, Hepatitis C (--s/p interferon treatmentwith sustained viral response) - Smoking History Smoking history: Never smoked Have you smoked in the past 12 months: No If you are a former smoker, when did you quit?: 1989 - Alcohol/Substance Use Hx Alcohol Use: No History of Substance Use: reports: None - Social History ADL: Independent History of Recent Travel: No Home Medications - Allergies Allergies/Adverse Reactions: Allergies Allergy/AdvReac Type Severity Reaction Status Date / Time No Known Allergies Allergy Verified 03/14/17 15:14 - Home Medications Home Medications: Ambulatory Orders Escitalopram Oxalate [Lexapro -] 20 mg PO DAILY 03/14/17 Gabapentin 600 mg PO BID 03/14/17 Hydrochlorothiazide 25 mg PO DAILY 03/14/17 Metformin HCl [Metformin HCl ER] 1,000 mg PO BID 03/14/17 Montelukast Na [Singulair -] 10 mg PO HS 03/14/17 Trazodone HCl [Desyrel -] 150 mg PO HS 03/14/17 Family Disease History - Family Disease History Family Disease History: Diabetes: Father, Heart Disease: Father, Mother Physical Examination Vital Signs: Vital Signs Temperature 98 F 03/14/17 15:11 Pulse Rate 76 03/14/17 15:11 Respiratory Rate 18 03/14/17 15:11 Blood Pressure 121/72 03/14/17 15:11 O2 Sat by Pulse Oximetry (%) 98 03/14/17 15:11 Labs: CBC, BMP 03/14/17 15:51 03/14/17 15:51
--- NOTE | 2017-03-14 18:07 | PN ---
Teaching Attending Note Name of Resident: Juan Jose Sultana ATTENDING PHYSICIAN STATEMENT I saw and evaluated the patient. I reviewed the resident's note and discussed the case with the resident. I agree with the resident's findings and plan as documented. SUBJECTIVE: This is a 56-year-old woman with a history of HTN, type 2 DM, fibromyalgia, depression, anxiety, hepatitis C, alcoholic abuse, cirrhosis, SVT who presents to the ER complaining of sharp substernal chest pain that began while gardening. She felt dizzy, SOB and diaphoretic. She reports having a negative stress test last year. OBJECTIVE: Vital Signs Period Temp Pulse Resp BP Sys/Poe Pulse Ox Last 24 Hr 98 F 76 18 121/72 98 HEART: S1S2, RRR LUNGS: Clear ABDOMEN: Soft, non-tender, non-distended, normal BS EXTREMITIES: No edema ASSESSMENT AND PLAN: This is a 56-year-old woman with a history of HTN, type 2 DM, fibromyalgia, depression, anxiety, hepatitis C, alcoholic abuse, cirrhosis, SVT who presented to the ER with chest pain, SOB, diaphoresis, and dizziness. 1. Chest pain - Observe on telemetrry - Serial troponins - Reports negative stress test last year - Cardiology consult 2. HTN - Continue Cozaar, HCTZ 3. Type 2 DM - Hold Metformin - Fingersticks with Novolog sliding scale 4. Depression, anxiety, fibromyalgia - Continue Lexapro, Neurontin, Trazodone 5. Cirrhosis, history of alcohol abuse, hepatitis C - Continue Lactulose
--- NOTE | 2017-03-14 18:31 | HP ---
CHIEF COMPLAINT:Chestpain and dizziness PCP:Kulwinder HISTORY OF PRESENT ILLNESS: 56F PMH of HTN DM depression/anxiety presents with a chief complaint of chest pain diaphoreisis chills shortness of breath and dizziness. 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 The patient stqates she has been over exerting herself lately. She was also outside all day yesterday as well gardening and was seen in the ED yesterday for a poison Sasha rash. She states the chest pain was sudden in onset and lasted only a few minutes. It did not radiate anywghere was substernal and dull in character. She states her symptoms have since resolved. But she does still endorse some mild dizziness. Patient reports that she's had similar episodes in the past that usually resolves on its own. Had negative stress test last year which she had a [facility] for pre-op clearance. She endorses a small episode of nausea during the episode. She denies fevers. or recent sick contacts or recent illnesses. She does also endorse decreased PO fluid intake. ER course was notable for: (1)Labs CXR (2)Fluids Recent Travel:Denies PAST MEDICAL HISTORY:HTN DM ashtma/COPD SVT liver cirrhosis Hep C Cured per patient fibromyalgia anxiety/depression PAST SURGICAL HISTORY: x4 splenectomy ex-lap after trauma cholecystectomy cardiac ablation for SVT Social History: Smoking:Denies Alcohol:Denies Drugs: Denies Family History:Dad DM Mother lung Ca and HTN Allergies No Known Allergies Allergy (Verified 03/14/17 15:14) HOME MEDICATIONS: Home Medications Home Medication List Medication Instructions Recorded Confirmed Type Albuterol Sulfate Inhaler - 2 inh PO Q6H PRN 03/14/17 03/14/17 History [Ventolin Hfa Inhaler -] Escitalopram Oxalate [Lexapro -] 20 mg PO DAILY 03/14/17 03/14/17 History Gabapentin 600 mg PO BID 03/14/17 03/14/17 History Hydrochlorothiazide 25 mg PO DAILY 03/14/17 03/14/17 History Lactulose (Oral Use) [Cephulac -] 20 gm PO DAILY 03/14/17 03/14/17 History Losartan Potassium 100 mg PO DAILY 03/14/17 03/14/17 History Metformin HCl [Metformin HCl ER] 1,000 mg PO BID 03/14/17 03/14/17 History Montelukast Na [Singulair -] 10 mg PO HS 03/14/17 03/14/17 History Trazodone HCl [Desyrel -] 150 mg PO HS 03/14/17 03/14/17 History Active Medications Generic Name Dose Route Start Last Admin Trade Name Freq PRN Reason Stop Dose Admin Albuterol Sulfate 2 puff 03/14/17 18:39 Ventolin Hfa Inhaler - IH Q6H PRN WHEEZING Escitalopram Oxalate 20 mg 03/15/17 10:00 Lexapro - PO DAILY [facility] Sodium Chloride 1,000 mls @ 100 mls/hr 03/14/17 18:45 Normal Saline - IV ASDIR [facility] Insulin Aspart 1 vial 03/14/17 22:00 Novolog Vial Sliding Scale - SQ ACHS [facility] Protocol Lactulose 20 gm 03/15/17 10:00 Cephulac (Oral Use) PO DAILY [facility] Montelukast Sodium 10 mg 03/14/17 22:00 Singulair - PO HS [facility] Non-Formulary Medication 600 mg 03/14/17 22:00 Gabapentin [Gabapentin] PO BID [facility] Trazodone HCl 150 mg 03/14/17 22:00 Desyrel - PO [facility] REVIEW OF SYSTEMS CONSTITUTIONAL: Absent: fever, generalized weakness, malaise, loss of appetite, weight change Present chills, diaphoresis HEENT: Absent: rhinorrhea, nasal congestion, throat pain, throat swelling, difficulty swallowing, mouth swelling, ear pain, eye pain, visual changes CARDIOVASCULAR: Absent: , syncope, palpitations, irregular heart rate, lightheadedness, peripheral edema Present: chest pain RESPIRATORY: Absent: cough, dyspnea with exertion, orthopnea, wheezing, stridor, hemoptysis Present: shortness of breath GASTROINTESTINAL: Absent: abdominal pain, abdominal distension, vomiting, diarrhea, constipation, melena, hematochezia Present: nausea GENITOURINARY: Absent: dysuria, frequency, urgency, hesitancy, hematuria, flank pain, genital pain MUSCULOSKELETAL: Absent: myalgia, arthralgia, joint swelling, back pain, neck pain SKIN: Absent: rash, itching, pallor HEMATOLOGIC/IMMUNOLOGIC: Absent: easy bleeding, easy bruising, lymphadenopathy, frequent infections ENDOCRINE: Absent: unexplained weight gain, unexplained weight loss, heat intolerance, cold intolerance NEUROLOGIC: Absent: headache, focal weakness or paresthesias, unsteady gait, seizure, mental status changes, bladder or bowel incontinence Present: dizziness PSYCHIATRIC: Absent: anxiety, depression, suicidal or homicidal ideation, hallucinations. PHYSICAL EXAMINATION GENERAL: Awake, alert, and fully oriented, in no acute distress. HEAD: Normal with no signs of trauma. EYES: Pupils equal, round and reactive to light, extraocular movements intact, sclera anicteric, conjunctiva clear EARS, NOSE, THROAT: Dry mucous membranes. NECK: Normal range of motion, supple without JVD LUNGS: Breath sounds equal, clear to auscultation bilaterally. No wheezes, and no crackles. No accessory muscle use. HEART: Regular rate and rhythm, normal S1 and S2 without murmur, rub or gallop. ABDOMEN: Soft, nontender, not distended, normoactive bowel sounds, no guarding, no rebound, no masses MUSCULOSKELETAL: No CVA tenderness. UPPER EXTREMITIES: warm, well-perfused. No peripheral edema. LOWER EXTREMITIES: warm, well-perfused. No calf tenderness. No peripheral edema. NEUROLOGICAL: Cranial nerves II-XII grossly intact. Normal speech. PSYCHIATRIC: Cooperative. Good eye contact. Appropriate mood and affect. EKG: NSR CXR : Clear ASSESSMENT/PLAN: 56F with multiple medical probelms presents to the hospital with atypical chest pain. Atypical chest pain: Does not seem cardiac in nature could be anxiety as patient is anxious at baseline. Place on telemetry observation First set of cardiac enzymes negative Will trend 2 more sets of enzymes Cardiology consult already recieved aspirin check HbA1C Check lipid panel Will consider Echo negative stress test 1 year ago DM: Fingersticks ACHS Check HbA1c ISS Hold metformin HTN: Hold Losartan and HCTZ for now reassess tomorrow and restart Meds Asthma/COPD: restart Albuterol inhaler PRN Not active at this time nebulizers if needed Restart singulair Depression/anxiety: Restart trazadone HS Restart lexapro Fibromyalgia: Restart gabapentin 600mg po BID Liver cirrhoses: Restart daily lactulose FEN: NS @ 83ml/hr no electrolyte issues diabetic diet PPx: SCDs no GI PPx indicated no PT consult needed Case discussed with attending Visit type - Emergency Visit Emergency Visit: Yes ED Registration Date: 03/14/17 Care time: The patient presented to the Emergency Department on the above date and was hospitalized for further evaluation of their emergent condition. - New Patient This patient is new to me today: Yes Date on this admission: 03/14/17 - Critical Care Critical Care patient: No
[2017-03-14] MEDS ORDERED: ALBUTEROL SO4 6.7 GM HFA INHALER IH PRN (18:39)
[2017-03-14] MEDS ORDERED: SODIUM CHLORIDE 1,000 ML IV SCH (18:45)
[2017-03-14 18:56] VITALS: BMI 32.9
[2017-03-14] MEDS ORDERED: PATIENT'S OWN MEDICATION (NON-FORMULARY) (Gabapentin [Gabapentin] 600 MG) PO SCH (22:00)
[2017-03-14 22:17] LABS: TROPONIN I < 0.02 ng/ml (0.00-0.05)
--- NOTE | 2017-03-14 22:39 | CON.CARD ---
Consult Consult Specialty:: Cardiology Reason for Consultation:: cp - History of Present Illness History of Present Illness: 56-year-old female with hypertension and diabetes presents with chest pain at rest. Last stress test was one year ago and was reportedly normal. EKG shows no acute ischemic changes Cardiac workup, given risk factors and heart score of 3 without prompt cardiology follow-up, likely monitor on observation telemetry. PMH s/p SVT ablation [facility] " many years ago" - History Source History Provided By: Patient, Medical Record Limitations to Obtaining History: Poor Historian - Past Medical History Cardio/Vascular: Yes: HTN Hepatobiliary: Yes: Cirrhosis, Hepatitis C (--s/p interferon treatmentwith sustained viral response) - Alcohol/Substance Use Hx Alcohol Use: No History of Substance Use: reports: None - Smoking History Smoking history: Former smoker Have you smoked in the past 12 months: No If you are a former smoker, when did you quit?: 1989 - Social History ADL: Independent History of Recent Travel: No Home Medications - Allergies Allergies/Adverse Reactions: Allergies Allergy/AdvReac Type Severity Reaction Status Date / Time No Known Allergies Allergy Verified 03/14/17 15:14 - Home Medications Home Medications: Ambulatory Orders Albuterol Sulfate Inhaler - [Ventolin Hfa Inhaler -] 2 inh PO Q6H PRN 03/14/17 Escitalopram Oxalate [Lexapro -] 20 mg PO DAILY 03/14/17 Gabapentin 600 mg PO BID 03/14/17 Hydrochlorothiazide 25 mg PO DAILY 03/14/17 Lactulose (Oral Use) [Cephulac -] 20 gm PO DAILY 03/14/17 Losartan Potassium 100 mg PO DAILY 03/14/17 Metformin HCl [Metformin HCl ER] 1,000 mg PO BID 03/14/17 Montelukast Na [Singulair -] 10 mg PO HS 03/14/17 Trazodone HCl [Desyrel -] 150 mg PO HS 03/14/17 Family Disease History - Family Disease History Family Disease History: Diabetes: Father, Heart Disease: Father, Mother Review of Systems - Review of Systems Constitutional: reports: No Symptoms Eyes: reports: No Symptoms HENT: reports: No Symptoms Neck: reports: No Symptoms Cardiovascular: reports: Chest Pain Gastrointestinal: reports: No Symptoms Genitourinary: reports: No Symptoms Breasts: reports: No Symptoms Reported Musculoskeletal: reports: No Symptoms Integumentary: reports: No Symptoms Neurological: reports: No Symptoms Endocrine: reports: No Symptoms Hematology/Lymphatic: reports: No Symptoms Psychiatric: reports: No Symptoms Vital Signs: Vital Signs Temperature 98 F 03/14/17 15:11 Pulse Rate 66 03/14/17 18:43 Respiratory Rate 20 03/14/17 18:43 Blood Pressure 140/78 03/14/17 18:43 O2 Sat by Pulse Oximetry (%) 97 03/14/17 18:43 Constitutional: Yes: Well Nourished, No Distress, Calm Eyes: Yes: WNL, Conjunctiva Clear, EOM Intact HENT: Yes: WNL, Atraumatic, Normocephalic Neck: Yes: WNL, Supple, Trachea Midline Respiratory: Yes: WNL, Regular, CTA Bilaterally Gastrointestinal: Yes: WNL, Normal Bowel Sounds Renal/: Yes: WNL Cardiovascular: Yes: WNL, Regular Rate and Rhythm Musculoskeletal: Yes: WNL Extremities: Yes: WNL Integumentary: Yes: WNL Neurological: Yes: WNL, Alert, Oriented ...Motor Strength: WNL Psychiatric: Yes: WNL, Alert, Oriented - Other Data Labs, Other Data: Troponin, BNP 03/14/17 21:20 Troponin I < 0.02 Troponin, BNP 03/14/17 21:20 Troponin I < 0.02 Laboratory Tests 03/14/17 03/14/17 03/14/17 15:31 15:51 15:51 WBC 13.2 H D RBC 4.49 Hgb 13.4 Hct 40.6 MCV 90.5 MCH 29.8 MCHC 32.9 RDW 15.0 Plt Count 189 MPV 9.6 Neutrophils % 71.9 D Lymphocytes % 20.8 D Monocytes % 7.1 Eosinophils % 0.0 D Basophils % 0.2 Sodium 139 Potassium 3.7 Chloride 99 Carbon Dioxide 32 Anion Gap 8 BUN 13 Creatinine 0.9 D Creat Clearance w eGFR > 60 POC Glucometer Random Glucose 89 D Hemoglobin A1c % Calcium 9.2 Phosphorus Magnesium Total Bilirubin 1.2 H D AST 72 H D ALT 70 D Alkaline Phosphatase 184 H Creatine Kinase 227 H D CK-MB (CK-2) 2.209 Troponin I < 0.02 B-Natriuretic Peptide 67.18 Total Protein 7.9 Albumin 3.7 Triglycerides Cholesterol Total LDL Cholesterol HDL Cholesterol 03/14/17 03/14/17 03/15/17 21:20 22:41 05:35 WBC 13.5 H RBC 4.76 Hgb 14.0 Hct 43.5 MCV 91.5 MCH 29.4 MCHC 32.1 RDW 15.1 Plt Count 209 MPV 9.5 Neutrophils % Lymphocytes % Monocytes % Eosinophils % Basophils % Sodium Potassium Chloride Carbon Dioxide Anion Gap BUN Creatinine Creat Clearance w eGFR POC Glucometer 102 Random Glucose Hemoglobin A1c % Calcium Phosphorus Magnesium Total Bilirubin AST ALT Alkaline Phosphatase Creatine Kinase 193 H CK-MB (CK-2) 2.347 Troponin I < 0.02 B-Natriuretic Peptide Total Protein Albumin Triglycerides Cholesterol Total LDL Cholesterol HDL Cholesterol 03/15/17 03/15/17 03/15/17 05:35 05:35 05:35 WBC RBC Hgb Hct MCV MCH MCHC RDW Plt Count MPV Neutrophils % Lymphocytes % Monocytes % Eosinophils % Basophils % Sodium 141 Potassium 3.6 Chloride 101 Carbon Dioxide 35 H Anion Gap 5 L BUN 14 Creatinine 0.8 Creat Clearance w eGFR > 60 POC Glucometer Random Glucose 92 Hemoglobin A1c % 6.5 H D Calcium 8.9 Phosphorus 3.9 D Magnesium 1.8 Total Bilirubin 1.3 H AST 51 H D ALT 57 Alkaline Phosphatase 169 H Creatine Kinase 138 CK-MB (CK-2) Troponin I < 0.02 B-Natriuretic Peptide Total Protein 7.2 Albumin 3.2 L Triglycerides 93 Cholesterol 170 Total LDL Cholesterol 86 HDL Cholesterol 77 H 03/15/17 05:55 WBC RBC Hgb Hct MCV MCH MCHC RDW Plt Count MPV Neutrophils % Lymphocytes % Monocytes % Eosinophils % Basophils % Sodium Potassium Chloride Carbon Dioxide Anion Gap BUN Creatinine Creat Clearance w eGFR POC Glucometer 92 Random Glucose Hemoglobin A1c % Calcium Phosphorus Magnesium Total Bilirubin AST ALT Alkaline Phosphatase Creatine Kinase CK-MB (CK-2) Troponin I B-Natriuretic Peptide Total Protein Albumin Triglycerides Cholesterol Total LDL Cholesterol HDL Cholesterol Imaging - Results Chest X-ray: Image Reviewed (no i/e) EKG: Image Reviewed (sr rep abn) Problem List - Problems (1) Abdominal pain Code(s): R10.9 - UNSPECIFIED ABDOMINAL PAIN Qualifiers: Abdominal location: right upper quadrant Qualified Code(s): R10.11 - Right upper quadrant pain (2) Chest pain Code(s): R07.9 - CHEST PAIN, UNSPECIFIED Qualifiers: Chest pain type: unspecified Qualified Code(s): R07.9 - Chest pain, unspecified (3) Cholelithiasis Code(s): K80.20 - CALCULUS OF GALLBLADDER W/O CHOLECYSTITIS W/O OBSTRUCTION Qualifiers: Cholelithiasis location: gallbladder Cholecystitis presence: with cholecystitis Biliary obstruction: without biliary obstruction (4) Diabetes mellitus Code(s): E11.9 - TYPE 2 DIABETES MELLITUS WITHOUT COMPLICATIONS Qualifiers: Diabetes mellitus type: type 2 Diabetes mellitus complication status: without complication Diabetes mellitus intermediate manager insulin use: without usp use Qualified Code(s): E11.9 - Type 2 diabetes mellitus without complications (5) Increased ammonia level Code(s): R79.89 - OTHER SPECIFIED ABNORMAL FINDINGS OF BLOOD CHEMISTRY (6) Acute hepatic encephalopathy Code(s): K72.00 - ACUTE AND SUBACUTE HEPATIC FAILURE WITHOUT COMA (7) Acute renal failure Code(s): N17.9 - ACUTE KIDNEY FAILURE, UNSPECIFIED Qualifiers: Acute renal failure type: unspecified Qualified Code(s): N17.9 - Acute kidney failure, unspecified (8) Altered mental state Code(s): R41.82 - ALTERED MENTAL STATUS, UNSPECIFIED (9) Chest pain, atypical Code(s): R07.89 - OTHER CHEST PAIN (10) Cirrhosis Code(s): K74.60 - UNSPECIFIED CIRRHOSIS OF LIVER Qualifiers: Hepatic cirrhosis type: unspecified hepatic cirrhosis Ascites presence : without ascites Qualified Code(s): K74.60 - Unspecified cirrhosis of liver (11) Closed tibial fracture Code(s): S82.209A - UNSP FRACTURE OF SHAFT OF UNSP TIBIA, INIT FOR CLOS FX Qualifiers: Encounter type: initial encounter Tibia location: shaft Fracture morphology: oblique Fracture alignment: nondisplaced Laterality: left Qualified Code(s): S82.235A - Nondisplaced oblique fracture of shaft of left tibia, initial encounter for closed fracture (12) Costochondral chest pain Code(s): R07.1 - CHEST PAIN ON BREATHING (13) DVT prophylaxis Code(s): [id number] - (14) Degenerative arthritis of finger Code(s): M19.049 - PRIMARY OSTEOARTHRITIS, UNSPECIFIED HAND Qualifiers: Laterality: right Qualified Code(s): M19.041 - Primary osteoarthritis, right hand (15) Diabetic neuropathy Code(s): E11.40 - TYPE 2 DIABETES MELLITUS WITH DIABETIC NEUROPATHY, UNSP (16) Elevated BUN Code(s): R79.9 - ABNORMAL FINDING OF BLOOD CHEMISTRY, UNSPECIFIED (17) Elevated serum creatinine Code(s): R79.89 - OTHER SPECIFIED ABNORMAL FINDINGS OF BLOOD CHEMISTRY (18) Fall (on) (from) other stairs and steps, initial encounter Code(s): W10.8XXA - FALL (ON) (FROM) OTHER STAIRS AND STEPS, INITIAL ENCOUNTER (19) Fibromyalgia Code(s): M79.7 - FIBROMYALGIA (20) Hepatitis C Code(s): B19.20 - UNSPECIFIED VIRAL HEPATITIS C WITHOUT HEPATIC COMA Qualifiers: Viral hepatitis chronicity: chronic Hepatic coma status: without hepatic coma Qualified Code(s): B18.2 - Chronic viral hepatitis C (21) Hip pain Code(s): M25.559 - PAIN IN UNSPECIFIED HIP Qualifiers: Laterality: right Qualified Code(s): M25.551 - Pain in right hip (22) Hives Code(s): L50.9 - URTICARIA, UNSPECIFIED (23) Hypertension Code(s): I10 - ESSENTIAL (PRIMARY) HYPERTENSION Qualifiers: Hypertension type: essential hypertension Qualified Code(s): I10 - Essential (primary) hypertension (24) Opiate overdose Code(s): T40.601A - POISONING BY UNSP NARCOTICS, ACCIDENTAL, INIT (25) Precordial chest pain Code(s): R07.2 - PRECORDIAL PAIN (26) Rash and nonspecific skin eruption Code(s): R21 - RASH AND OTHER NONSPECIFIC SKIN ERUPTION Assessment/Plan chest pain syndrome dm cirrhosis copd hepc s/op svt ablation plan r/o mi echo mibi st when stable
[2017-03-14] MEDS: GABAPENTIN 300 MG CAPSULE (FP) PO SCH (22:42)
[2017-03-14] MEDS: traZODone HCL 50 MG TABLET (FP) PO SCH (22:43)
[2017-03-14] MEDS: MONTELUKAST NA 10 MG TABLET PO SCH (22:43)
[2017-03-14] MEDS: INSULIN SLIDING SCALE (NOVOLOG) 1 VIAL SQ SCH (22:57)
[2017-03-15] MEDS: INSULIN SLIDING SCALE (NOVOLOG) 1 VIAL SQ SCH ×4 (06:09→21:24)
[2017-03-15] MEDS ORDERED: diphenhydrAMINE HCL 25 MG CAPSULE (FP) PO ONE ×2 (07:15→18:18)
[2017-03-15 07:19] LABS: MCH 29.4 pg (25.7-33.7); MCHC 32.1 g/dl (32.0-36.0); MEAN CELL VOLUME 91.5 fl (80-96); MEAN PLT VOLUME 9.5 fl (7.5-11.1); PLATELET COUNT 209 K/MM3 (134-434); RDW 15.1 % (11.6-15.6); WHITE BLOOD COUNT 13.5 K/mm3 (4.0-10.0)
[2017-03-15 07:52] LABS: ALBUMIN 3.2 g/dl (3.4-5.0); ANION GAP 5 (8-16); CALCIUM 8.9 mg/dL (8.5-10.1); CO2 35 mmol/L (21-32); CREATININE 0.8 mg/dL (0.55-1.02); GLUCOSE,RANDOM 92 mg/dL (74-106); MAGNESIUM 1.8 mg/dL (1.8-2.4); SGOT/AST 51 U/L (15-37); SGPT/ALT 57 U/L (12-78)
[2017-03-15 07:57] LABS: ALK PHOS 169 U/L (45-117); BILIRUBIN,TOTAL 1.3 mg/dL (0.2-1.0); CHOLESTEROL 170 mg/dL (50-200); LDL CHOLESTEROL (ONLY SJRH) 86 mg/dL (5-100); PHOSPHOROUS 3.9 mg/dL (2.5-4.9); TOT PROT 7.2 g/dl (6.4-8.2)
[2017-03-15 08:08] LABS: TROPONIN I < 0.02 ng/ml (0.00-0.05)
[2017-03-15] MEDS: ESCITALOPRAM OXALATE 20 MG TABLET (FP) PO SCH (09:22)
[2017-03-15] MEDS: LACTULOSE 20 GM/30 ML UDC (FOR ORAL USE ONLY) PO SCH (09:22)
[2017-03-15] MEDS: GABAPENTIN 300 MG CAPSULE (FP) PO SCH ×2 (09:22→21:24)
--- NOTE | 2017-03-15 10:38 | EKG ---
Test Reason : Blood Pressure : / mmHG Vent. Rate : 065 BPM Atrial Rate : 065 BPM P-R Int : 134 ms QRS Dur : 102 ms QT Int : 432 ms P-R-T Axes : 049 039 026 degrees QTc Int : 449 ms NORMAL SINUS RHYTHM POSSIBLE LEFT ATRIAL ENLARGEMENT NONSPECIFIC T WAVE ABNORMALITY ABNORMAL ECG WHEN COMPARED WITH ECG OF 27-AUG-2016 22:49, QT HAS SHORTENED Confirmed by LEXIS JARRELL, SILVER ([id number]) on 03/15/2017 10:38:30 AM Referred By: Confirmed By:SILVER PIRES MD
--- NOTE | 2017-03-15 10:45 | PN ---
Progress Note, Physician History of Present Illness: 56-year-old female with hypertension and diabetes presents with chest pain at rest. Last stress test was one year ago and was reportedly normal. EKG shows no acute ischemic changes Cardiac workup, given risk factors and heart score of 3 without prompt cardiology follow-up, likely monitor on observation telemetry. PMH s/p SVT ablation [facility] " many years ago" - Current Medication List Current Medications: Active Medications Albuterol Sulfate (Ventolin Hfa Inhaler -) 2 puff IH Q6H PRN PRN Reason: WHEEZING Last Admin: 03/14/17 22:41 Dose: 2 puff Escitalopram Oxalate (Lexapro -) 20 mg PO DAILY MARILU Last Admin: 03/15/17 09:22 Dose: 20 mg Gabapentin (Neurontin -) 600 mg PO BID [facility] Last Admin: 03/15/17 09:22 Dose: 600 mg Hydrocortisone (Hytone 1% Cream -) 1 applic TP DAILY PRN PRN Reason: FOR ITCHING Sodium Chloride (Normal Saline -) 1,000 mls @ 100 mls/hr IV ASDIR [facility] Last Admin: 03/14/17 23:00 Dose: 100 mls/hr Insulin Aspart (Novolog Vial Sliding Scale -) 1 vial SQ ACHS AMRILU PRN Reason: Protocol Last Admin: 03/15/17 06:09 Dose: Not Given Lactulose (Cephulac (Oral Use)) 20 gm PO DAILY [facility] Last Admin: 03/15/17 09:22 Dose: 20 gm Montelukast Sodium (Singulair -) 10 mg PO HS [facility] Last Admin: 03/14/17 22:43 Dose: 10 mg Prednisone (Deltasone -) 10 mg PO Q12H MARILU Trazodone HCl (Desyrel -) 150 mg PO HS [facility] Last Admin: 03/14/17 22:43 Dose: 150 mg - Objective Vital Signs: Vital Signs Temperature 97 F L 03/15/17 06:00 Pulse Rate 60 03/15/17 06:00 Respiratory Rate 20 03/15/17 06:00 Blood Pressure 142/88 03/15/17 06:00 O2 Sat by Pulse Oximetry (%) 95 03/15/17 02:34 Eyes: Yes: WNL, Conjunctiva Clear, EOM Intact HENT: Yes: WNL, Atraumatic, Normocephalic Neck: Yes: WNL, Supple, Trachea Midline Cardiovascular: Yes: WNL, Regular Rate and Rhythm Respiratory: Yes: WNL, Regular, CTA Bilaterally Gastrointestinal: Yes: WNL, Normal Bowel Sounds Genitourinary: Yes: WNL Musculoskeletal: Yes: WNL Extremities: Yes: WNL Edema: No Integumentary: Yes: WNL Neurological: Yes: WNL, Alert, Oriented ...Motor Strength: WNL Psychiatric: Yes: WNL Labs: CBC, BMP 03/15/17 05:35 03/15/17 05:35 Problem List - Problems (1) Abdominal pain Code(s): R10.9 - UNSPECIFIED ABDOMINAL PAIN Qualifiers: Abdominal location: right upper quadrant Qualified Code(s): R10.11 - Right upper quadrant pain (2) Chest pain Code(s): R07.9 - CHEST PAIN, UNSPECIFIED Qualifiers: Chest pain type: unspecified Qualified Code(s): R07.9 - Chest pain, unspecified (3) Cholelithiasis Code(s): K80.20 - CALCULUS OF GALLBLADDER W/O CHOLECYSTITIS W/O OBSTRUCTION Qualifiers: Cholelithiasis location: gallbladder Cholecystitis presence: with cholecystitis Biliary obstruction: without biliary obstruction (4) Diabetes mellitus Code(s): E11.9 - TYPE 2 DIABETES MELLITUS WITHOUT COMPLICATIONS Qualifiers: Diabetes mellitus type: type 2 Diabetes mellitus complication status: without complication Diabetes mellitus vermin exterminator insulin use: without vermin exterminator use Qualified Code(s): E11.9 - Type 2 diabetes mellitus without complications (5) Increased ammonia level Code(s): R79.89 - OTHER SPECIFIED ABNORMAL FINDINGS OF BLOOD CHEMISTRY (6) Acute hepatic encephalopathy Code(s): K72.00 - ACUTE AND SUBACUTE HEPATIC FAILURE WITHOUT COMA (7) Acute renal failure Code(s): N17.9 - ACUTE KIDNEY FAILURE, UNSPECIFIED Qualifiers: Acute renal failure type: unspecified Qualified Code(s): N17.9 - Acute kidney failure, unspecified (8) Altered mental state Code(s): R41.82 - ALTERED MENTAL STATUS, UNSPECIFIED (9) Chest pain, atypical Code(s): R07.89 - OTHER CHEST PAIN (10) Cirrhosis Code(s): K74.60 - UNSPECIFIED CIRRHOSIS OF LIVER Qualifiers: Hepatic cirrhosis type: unspecified hepatic cirrhosis Ascites presence : without ascites Qualified Code(s): K74.60 - Unspecified cirrhosis of liver (11) Closed tibial fracture Code(s): S82.209A - UNSP FRACTURE OF SHAFT OF UNSP TIBIA, INIT FOR CLOS FX Qualifiers: Encounter type: initial encounter Tibia location: shaft Fracture morphology: oblique Fracture alignment: nondisplaced Laterality: left Qualified Code(s): S82.235A - Nondisplaced oblique fracture of shaft of left tibia, initial encounter for closed fracture (12) Costochondral chest pain Code(s): R07.1 - CHEST PAIN ON BREATHING (13) DVT prophylaxis Code(s): [id number] - (14) Degenerative arthritis of finger Code(s): M19.049 - PRIMARY OSTEOARTHRITIS, UNSPECIFIED HAND Qualifiers: Laterality: right Qualified Code(s): M19.041 - Primary osteoarthritis, right hand (15) Diabetic neuropathy Code(s): E11.40 - TYPE 2 DIABETES MELLITUS WITH DIABETIC NEUROPATHY, UNSP (16) Elevated BUN Code(s): R79.9 - ABNORMAL FINDING OF BLOOD CHEMISTRY, UNSPECIFIED (17) Elevated serum creatinine Code(s): R79.89 - OTHER SPECIFIED ABNORMAL FINDINGS OF BLOOD CHEMISTRY (18) Fall (on) (from) other stairs and steps, initial encounter Code(s): W10.8XXA - FALL (ON) (FROM) OTHER STAIRS AND STEPS, INITIAL ENCOUNTER (19) Fibromyalgia Code(s): M79.7 - FIBROMYALGIA (20) Hepatitis C Code(s): B19.20 - UNSPECIFIED VIRAL HEPATITIS C WITHOUT HEPATIC COMA Qualifiers: Viral hepatitis chronicity: chronic Hepatic coma status: without hepatic coma Qualified Code(s): B18.2 - Chronic viral hepatitis C (21) Hip pain Code(s): M25.559 - PAIN IN UNSPECIFIED HIP Qualifiers: Laterality: right Qualified Code(s): M25.551 - Pain in right hip (22) Hives Code(s): L50.9 - URTICARIA, UNSPECIFIED (23) Hypertension Code(s): I10 - ESSENTIAL (PRIMARY) HYPERTENSION Qualifiers: Hypertension type: essential hypertension Qualified Code(s): I10 - Essential (primary) hypertension (24) Opiate overdose Code(s): T40.601A - POISONING BY UNSP NARCOTICS, ACCIDENTAL, INIT (25) Precordial chest pain Code(s): R07.2 - PRECORDIAL PAIN (26) Rash and nonspecific skin eruption Code(s): R21 - RASH AND OTHER NONSPECIFIC SKIN ERUPTION Assessment/Plan chest pain syndrome dm cirrhosis copd hepc s/op svt ablation plan r/o mi echo mibi st when stable
[2017-03-15] MEDS: HYDROCORTISONE 1% TOPICAL CREAM 30 GM TUBE TP PRN (12:26)
[2017-03-15] MEDS: predniSONE 10 MG TABLET (UD) PO SCH ×3 (12:26→22:03)
--- NOTE | 2017-03-15 13:29 | PN ---
Teaching Attending Note Name of Resident: Sariah Zhang ATTENDING PHYSICIAN STATEMENT I saw and evaluated the patient. I reviewed the resident's note and discussed the case with the resident. I agree with the resident's findings and plan as documented. SUBJECTIVE: Patient complains of an itchy rash which she thinks is poison henry. She had been seen in the ER on 03/12, diagnosed with hives and possible allergic reaction from gardening, and she was discharged on Prednisone 4o mg daily x 8 days, Benadryl cream. OBJECTIVE: Vital Signs Period Temp Pulse Resp BP Sys/Poe Pulse Ox Last 24 Hr 97 F-98 F 60-76 18-20 121-159/61-88 95-98 HEART: S1S2, RRR LUNGS: Clear ABDOMEN: Soft, non-tender, non-distended, normal BS EXTREMITIES: No edema SKIN: Macular and vesicular rash on both arms and right neck ASSESSMENT AND PLAN: This is a 56-year-old woman with a history of HTN, type 2 DM, fibromyalgia, depression, anxiety, hepatitis C, alcoholic abuse, cirrhosis, SVT who presented to the ER with chest pain, SOB, diaphoresis, and dizziness. 1. Chest pain - Resolved - Troponin negative x 3 - Reports negative stress test last year - Echocardiogram - Plan for stress test 2. HTN - Continue Cozaar, HCTZ 3. Type 2 DM - Hold Metformin - Fingersticks with Novolog sliding scale 4. Depression, anxiety, fibromyalgia - Continue Lexapro, Neurontin, Trazodone 5. Cirrhosis, history of alcohol abuse, hepatitis C - Continue Lactulose 6. Asthma - Continue Singulair, albuterol as needed 7. History of SVT, ablation 8. Contact dermatitis, likely poison henry - Resume Prednisone - Hydrocortisone cream
[2017-03-15] MEDS ORDERED: INSULIN (NOVOLOG) ASPART 100 UNITS/ML 10ML VIAL ONE (13:56)
--- NOTE | 2017-03-15 14:57 | EKG ---
Test Reason : Blood Pressure : / mmHG Vent. Rate : 062 BPM Atrial Rate : 062 BPM P-R Int : 142 ms QRS Dur : 102 ms QT Int : 448 ms P-R-T Axes : 058 044 031 degrees QTc Int : 454 ms NORMAL SINUS RHYTHM POSSIBLE LEFT ATRIAL ENLARGEMENT BORDERLINE ECG WHEN COMPARED WITH ECG OF 14-MAR-2017 15:53, NO SIGNIFICANT CHANGE WAS FOUND Confirmed by SILVER PIRES MD ([id number]) on 03/15/2017 2:57:20 PM Referred By: Confirmed By:SILVER PIRES MD
--- NOTE | 2017-03-15 16:44 | PN ---
Physical Exam: SUBJECTIVE: Patient seen and examined at bedside. Pt states that she is very itchy all over, but denies chest pain or SOB. OBJECTIVE: Vital Signs Period Temp Pulse Resp BP Sys/Poe Pulse Ox Last 24 Hr 97 F-98 F 60-75 16-20 106-159/61-88 95-98 GENERAL: The patient is awake, alert, and fully oriented, in no acute distress. HEAD: Normal with no signs of trauma. EYES: PERRL, extraocular movements intact, sclera anicteric, conjunctiva clear. No ptosis. ENT: oropharynx mildly erythematous, moist mucous membranes. NECK: Trachea midline, full range of motion, supple. LUNGS: Breath sounds equal, clear to auscultation bilaterally, no wheezes, no crackles, no accessory muscle use. HEART: Regular rate and rhythm, S1, S2 without murmur, rub or gallop. ABDOMEN: Soft, nontender, nondistended, normoactive bowel sounds, no guarding, no rebound, no hepatosplenomegaly, no masses. EXTREMITIES: 2+ posterior tibial pulses, warm, well-perfused, no edema. bilateral rashes on upper extremities from poison henry NEUROLOGICAL: Cranial nerves II through XII grossly intact. Laboratory Results - last 24 hr 03/14/17 03/14/17 03/15/17 21:20 22:41 05:35 WBC 13.5 H RBC 4.76 Hgb 14.0 Hct 43.5 MCV 91.5 MCH 29.4 MCHC 32.1 RDW 15.1 Plt Count 209 MPV 9.5 Sodium Potassium Chloride Carbon Dioxide Anion Gap BUN Creatinine Creat Clearance w eGFR POC Glucometer 102 Random Glucose Hemoglobin A1c % Calcium Phosphorus Magnesium Total Bilirubin AST ALT Alkaline Phosphatase Creatine Kinase 193 H CK-MB (CK-2) 2.347 Troponin I < 0.02 Total Protein Albumin Triglycerides Cholesterol Total LDL Cholesterol HDL Cholesterol 03/15/17 03/15/17 03/15/17 05:35 05:35 05:35 WBC RBC Hgb Hct MCV MCH MCHC RDW Plt Count MPV Sodium 141 Potassium 3.6 Chloride 101 Carbon Dioxide 35 H Anion Gap 5 L BUN 14 Creatinine 0.8 Creat Clearance w eGFR > 60 POC Glucometer Random Glucose 92 Hemoglobin A1c % 6.5 H D Calcium 8.9 Phosphorus 3.9 D Magnesium 1.8 Total Bilirubin 1.3 H AST 51 H D ALT 57 Alkaline Phosphatase 169 H Creatine Kinase 138 CK-MB (CK-2) Troponin I < 0.02 Total Protein 7.2 Albumin 3.2 L Triglycerides 93 Cholesterol 170 Total LDL Cholesterol 86 HDL Cholesterol 77 H 03/15/17 03/15/17 05:55 12:12 WBC RBC Hgb Hct MCV MCH MCHC RDW Plt Count MPV Sodium Potassium Chloride Carbon Dioxide Anion Gap BUN Creatinine Creat Clearance w eGFR POC Glucometer 92 84 Random Glucose Hemoglobin A1c % Calcium Phosphorus Magnesium Total Bilirubin AST ALT Alkaline Phosphatase Creatine Kinase CK-MB (CK-2) Troponin I Total Protein Albumin Triglycerides Cholesterol Total LDL Cholesterol HDL Cholesterol Active Medications Generic Name Dose Route Start Last Admin Trade Name Freq PRN Reason Stop Dose Admin Albuterol Sulfate 2 puff 03/14/17 18:39 03/14/17 22:41 Ventolin Hfa Inhaler - IH 2 puff Q6H PRN Administration WHEEZING Escitalopram Oxalate 20 mg 03/15/17 10:00 03/15/17 09:22 Lexapro - PO 20 mg DAILY MARILU Administration Gabapentin 600 mg 03/14/17 22:00 03/15/17 09:22 Neurontin - PO 600 mg BID MARILU Administration Hydrocortisone 1 applic 03/15/17 10:16 03/15/17 12:26 Hytone 1% Cream - TP 1 applic DAILY PRN Administration FOR ITCHING Sodium Chloride 1,000 mls @ 100 mls/hr 03/14/17 18:45 03/14/17 23:00 Normal Saline - IV 100 mls/hr ASDIR MARILU Administration Insulin Aspart 1 vial 03/14/17 22:00 03/15/17 12:26 Novolog Vial Sliding Scale - SQ Not Given ACHS MARILU Protocol Lactulose 20 gm 03/15/17 10:00 03/15/17 09:22 Cephulac (Oral Use) PO 20 gm DAILY MARILU Administration Montelukast Sodium 10 mg 03/14/17 22:00 03/14/17 22:43 Singulair - PO 10 mg HS MARILU Administration Prednisone 10 mg 03/15/17 10:30 03/15/17 12:26 Deltasone - PO 10 mg Q12H MARILU Administration Trazodone HCl 150 mg 03/14/17 22:00 03/14/17 22:43 Desyrel - PO 150 mg HS MARILU Administration ASSESSMENT/PLAN: 56F with multiple comorbidities presented to the ED with atypical chest pain. 1. Atypical chest pain: -Cardiology consult -Echo completed- waiting for result 2. Poison henry on upper extremities -Continue Hydrocortisone 1% -Continue Prednisone 10mg PO 3. DM -Fingersticks ACHS -ISS 4. HTN: -Losartan and HCTZ for now still held reassess tomorrow and restart Meds 5. Asthma/COPD: -Continue Ventolin 2 puff IH q6 PRN -Singulair 10mg PO 6. Depression/anxiety: -Continue Trazodone 150 mg PO -Continue Escitalopram 20mg 7. Fibromyalgia: -Continue Gabapentin 600mg po BID 8. Liver cirrhosis: -Continue daily lactulose FEN: NS @ 100 mls/hr no electrolyte issues diabetic diet PPx: SCDs no GI PPx indicated no PT consult needed Visit type - Emergency Visit Emergency Visit: No - New Patient This patient is new to me today: Yes Date on this admission: 03/15/17 - Critical Care Critical Care patient: No - Discharge Referral Referred to [facility] No
[2017-03-15] MEDS: traZODone HCL 50 MG TABLET (FP) PO SCH (21:23)
[2017-03-15] MEDS: MONTELUKAST NA 10 MG TABLET PO SCH (21:24)
[2017-03-16] MEDS: diphenhydrAMINE HCL 25 MG CAPSULE (FP) PO PRN ×2 (02:00→12:33)
[2017-03-16] MEDS: INSULIN SLIDING SCALE (NOVOLOG) 1 VIAL SQ SCH ×2 (06:06→12:27)
[2017-03-16 07:15] LABS: BASOPHIL 0.8 % (0-2.0); EOSINOPHIL 2.1 % (0-4.5); MCH 30.3 pg (25.7-33.7); MCHC 33.3 g/dl (32.0-36.0); MEAN PLT VOLUME 9.9 fl (7.5-11.1); NEUTROPHILS 60.2 % (42.8-82.8); PLATELET COUNT 185 K/MM3 (134-434); RDW 14.6 % (11.6-15.6); WHITE BLOOD COUNT 10.3 K/mm3 (4.0-10.0)
[2017-03-16 07:34] LABS: ANION GAP 6 (8-16); CALCIUM 8.7 mg/dL (8.5-10.1); CO2 32 mmol/L (21-32); CREATININE 0.7 mg/dL (0.55-1.02); GLUCOSE,RANDOM 121 mg/dL (74-106)
[2017-03-16 08:41] VITALS: TEMP 98.4
--- NOTE | 2017-03-16 08:58 | PN ---
Progress Note, Physician Chief Complaint: Pt awaiting stress MIBI today. She denies chest pain or dyspnea. History of Present Illness: 56-year-old female, history of hypertension, [id number] diabetes, fibromyalgia, presenting with chest pain. Patient states while gardening at work about an hour ago, she started having sharp, substernal, non-radiating chest pain that has been intermittent with no exacerbating or alleviating factors. Also complaining of some shortness of breath w/ diaphoresis and dizziness. States symptoms have since resolved. Patient reports that she's had similar episodes in the past that usually resolves on its own. Had negative stress test last year. Of note, pt was seen in ED 2 days ago for rash 2 /2 ? posion henry and sent home w/ short prednisone taper - Current Medication List Current Medications: Active Medications Albuterol Sulfate (Ventolin Hfa Inhaler -) 2 puff IH Q6H PRN PRN Reason: WHEEZING Last Admin: 03/14/17 22:41 Dose: 2 puff Diphenhydramine HCl (Benadryl -) 25 mg PO Q8H PRN PRN Reason: FOR ITCHING Last Admin: 03/16/17 02:00 Dose: 25 mg Escitalopram Oxalate (Lexapro -) 20 mg PO DAILY MARILU Last Admin: 03/15/17 09:22 Dose: 20 mg Gabapentin (Neurontin -) 600 mg PO BID MARILU Last Admin: 03/15/17 21:24 Dose: 600 mg Hydrocortisone (Hytone 1% Cream -) 1 applic TP DAILY PRN PRN Reason: FOR ITCHING Last Admin: 03/15/17 12:26 Dose: 1 applic Insulin Aspart (Novolog Vial Sliding Scale -) 1 vial SQ ACHS MARILU PRN Reason: Protocol Last Admin: 03/16/17 06:06 Dose: Not Given Lactulose (Cephulac (Oral Use)) 20 gm PO DAILY MARILU Last Admin: 03/15/17 09:22 Dose: 20 gm Montelukast Sodium (Singulair -) 10 mg PO HS [facility] Last Admin: 03/15/17 21:24 Dose: 10 mg Prednisone (Deltasone -) 10 mg PO Q12H MARILU Last Admin: 03/15/17 22:03 Dose: Not Given Trazodone HCl (Desyrel -) 150 mg PO HS [facility] Last Admin: 03/15/17 21:23 Dose: 150 mg - Objective Vital Signs: Vital Signs Temperature 98.4 F 03/16/17 08:41 Pulse Rate 78 03/16/17 08:41 Respiratory Rate 18 03/16/17 08:41 Blood Pressure 155/85 03/16/17 08:41 O2 Sat by Pulse Oximetry (%) 98 03/16/17 08:42 Constitutional: Yes: Anxious Eyes: Yes: WNL HENT: Yes: WNL Neck: Yes: WNL Cardiovascular: Yes: WNL Respiratory: Yes: WNL Gastrointestinal: Yes: WNL ...Rectal Exam: Yes: Deferred Genitourinary: No: Anuria Breast(s): Yes: WNL Musculoskeletal: Yes: WNL Extremities: Yes: WNL Edema: No Peripheral Pulses WNL: Yes Integumentary: Yes: WNL Neurological: Yes: WNL Psychiatric: Yes: WNL Labs: CBC, BMP 03/16/17 05:35 03/16/17 05:35 Problem List - Problems (1) Chest pain Assessment/Plan: Await stress MIBI. Borderline reduced LVEF by ECHO; beta blockers and ACEI would be of benefit. Addendum: stress MIBI showed no myocardial ischemia. Pt may be followed as an outpt from cardiac perspective. Code(s): R07.9 - CHEST PAIN, UNSPECIFIED Qualifiers: Chest pain type: unspecified Qualified Code(s): R07.9 - Chest pain, unspecified (2) Diabetes mellitus Code(s): E11.9 - TYPE 2 DIABETES MELLITUS WITHOUT COMPLICATIONS Qualifiers: Diabetes mellitus type: type 2 Diabetes mellitus complication status: without complication Diabetes mellitus termite treater insulin use: without chcf use Qualified Code(s): E11.9 - Type 2 diabetes mellitus without complications (3) Fibromyalgia Code(s): M79.7 - FIBROMYALGIA (4) Hepatitis C Code(s): B19.20 - UNSPECIFIED VIRAL HEPATITIS C WITHOUT HEPATIC COMA Qualifiers: Viral hepatitis chronicity: chronic Hepatic coma status: without hepatic coma Qualified Code(s): B18.2 - Chronic viral hepatitis C (5) Hypertension Code(s): I10 - ESSENTIAL (PRIMARY) HYPERTENSION Qualifiers: Hypertension type: essential hypertension Qualified Code(s): I10 - Essential (primary) hypertension
[2017-03-16] MEDS ORDERED: DIPYRIDAMOLE 50 MG/10 ML VIAL IVPB ONE (11:29)
[2017-03-16] MEDS ORDERED: DIPYRIDAMOLE STRESS TEST 46.6 MG in DEXTROSE 5%-WATER - 37.28 ML IVPB ONE (11:30)
[2017-03-16] MEDS: predniSONE 10 MG TABLET (UD) PO SCH (12:33)
[2017-03-16] MEDS: ESCITALOPRAM OXALATE 20 MG TABLET (FP) PO SCH (12:33)
[2017-03-16] MEDS: LACTULOSE 20 GM/30 ML UDC (FOR ORAL USE ONLY) PO SCH (12:33)
[2017-03-16] MEDS: GABAPENTIN 300 MG CAPSULE (FP) PO SCH (12:33)
[2017-03-16] MEDS: HYDROCORTISONE 1% TOPICAL CREAM 30 GM TUBE TP PRN (12:33)
--- NOTE | 2017-03-16 13:08 | PN ---
Physical Exam: SUBJECTIVE: Patient seen and examined at bedside. Pt denies chest pain, however states that her arms are still very itchy from the poison henry. Denies SOB, headache, abdominal pain. OBJECTIVE: Vital Signs Period Temp Pulse Resp BP Sys/Poe Pulse Ox Last 24 Hr 97.4 F-98.7 F 56-78 16-20 120-156/69-88 93-98 GENERAL: The patient is awake, alert, and fully oriented, in no acute distress. HEAD: Normal with no signs of trauma. EYES: PERRL, extraocular movements intact, sclera anicteric, conjunctiva clear. ENT: Ears normal, nares patent, oropharynx clear without exudates, moist mucous membranes. NECK: Trachea midline, full range of motion, supple. Isolated erythematous rash from poison henry on anterior neck LUNGS: Breath sounds equal, clear to auscultation bilaterally, no wheezes, no crackles, no accessory muscle use. HEART: Regular rate and rhythm, S1, S2 without murmur, rub or gallop. ABDOMEN: Soft, nontender, nondistended, normoactive bowel sounds, no guarding, no rebound EXTREMITIES: 2+ posterior tibial pulses, warm, well-perfused, no edema. Erythematous rashes bilaterally on upper extremities from poison henry NEUROLOGICAL: Cranial nerves II through XII grossly intact. Normal speech, gait not observed. Laboratory Results - last 24 hr 03/15/17 03/15/17 03/16/17 17:10 21:23 05:35 WBC 10.3 H RBC 4.82 Hgb 14.6 Hct 43.8 MCV 91.0 MCH 30.3 MCHC 33.3 RDW 14.6 Plt Count 185 MPV 9.9 Neutrophils % 60.2 Lymphocytes % 31.3 D Monocytes % 5.6 Eosinophils % 2.1 D Basophils % 0.8 D Sodium Potassium Chloride Carbon Dioxide Anion Gap BUN Creatinine POC Glucometer 151 125 Random Glucose Calcium 03/16/17 03/16/17 03/16/17 05:35 06:02 12:15 WBC RBC Hgb Hct MCV MCH MCHC RDW Plt Count MPV Neutrophils % Lymphocytes % Monocytes % Eosinophils % Basophils % Sodium 139 Potassium 4.3 Chloride 101 Carbon Dioxide 32 Anion Gap 6 L BUN 12 Creatinine 0.7 POC Glucometer 119 135 Random Glucose 121 H D Calcium 8.7 Active Medications Generic Name Dose Route Start Last Admin Trade Name Freq PRN Reason Stop Dose Admin Albuterol Sulfate 2 puff 03/14/17 18:39 03/14/17 22:41 Ventolin Hfa Inhaler - IH 2 puff Q6H PRN Administration WHEEZING Diphenhydramine HCl 25 mg 03/15/17 21:19 03/16/17 12:33 Benadryl - PO 25 mg Q8H PRN Administration FOR ITCHING Escitalopram Oxalate 20 mg 03/15/17 10:00 03/16/17 12:33 Lexapro - PO 20 mg DAILY MARILU Administration Gabapentin 600 mg 03/14/17 22:00 03/16/17 12:33 Neurontin - PO 600 mg BID MARILU Administration Hydrocortisone 1 applic 03/15/17 10:16 03/16/17 12:33 Hytone 1% Cream - TP 1 applic DAILY PRN Administration FOR ITCHING Insulin Aspart 1 vial 03/14/17 22:00 03/16/17 12:27 Novolog Vial Sliding Scale - SQ Not Given ACHS [facility] Protocol Lactulose 20 gm 03/15/17 10:00 03/16/17 12:33 Cephulac (Oral Use) PO 20 gm DAILY MARILU Administration Montelukast Sodium 10 mg 03/14/17 22:00 03/15/17 21:24 Singulair - PO 10 mg HS MARILU Administration Prednisone 10 mg 03/15/17 10:30 03/16/17 12:33 Deltasone - PO 10 mg Q12H MARILU Administration Trazodone HCl 150 mg 03/14/17 22:00 03/15/17 21:23 Desyrel - PO 150 mg HS MARILU Administration ASSESSMENT/PLAN: 56F with multiple comorbidities presented to the ED with atypical chest pain. 1. Atypical chest pain: -Echo completed- no regional wall motion abnormalities, borderline reduced LVEF - could benefit from BB, Demar inhibitor -Stress test today- within normal limits 2. Poison henry on upper extremities, neck -Change Hydrocortisone 1% cream to Triamcinolone 0.1% cream since pt still very itchy -Continue Prednisone 10mg PO for at least 5 days 3. DM -Fingersticks ACHS -ISS 4. HTN: -Restarted on Losartan Potassium 100 mg PO daily, Hydrochlorothiazide 25 mg PO daily (home BP meds) 5. Asthma/COPD: -Continue Ventolin 2 puff IH q6 PRN -Singulair 10mg PO 6. Depression/anxiety: -Continue Trazodone 150 mg PO -Continue Escitalopram 20mg 7. Fibromyalgia: -Continue Gabapentin 600mg po BID 8. Liver cirrhosis: -Continue daily lactulose FEN: NS @ 100 mls/hr no electrolyte issues diabetic diet PPx: SCDs no GI PPx indicated no PT consult needed
[2017-03-16] MEDS ORDERED: TRIAMCINOLONE ACET 0.1% CREAM 15 GM TUBE TP PRN (14:00)
[2017-03-16] MEDS ORDERED: LOSARTAN POTASSIUM 50 MG TABLET (FP) PO SCH (14:15)
[2017-03-16] MEDS ORDERED: HYDROCHLOROTHIAZIDE 25 MG TABLET (FP) PO SCH (14:15)
[2017-03-16 15:04] VITALS: BP 135/75; PULSE 62
--- NOTE | 2017-03-16 16:21 | DS ---
Physical Exam: SUBJECTIVE: Patient seen and examined at bedside. Patient states that she is feeling well, and does not have chest pain. Denies shortness of breath or extremity pain. OBJECTIVE: Vital Signs Period Temp Pulse Resp BP Sys/Poe Pulse Ox Last 24 Hr 97.4 F-98.7 F 56-78 18-20 120-156/75-88 93-98 PHYSICAL EXAM GENERAL: The patient is awake, alert, and fully oriented, in no acute distress. HEAD: Normal with no signs of trauma. EYES: PERRL, extraocular movements intact, sclera anicteric, conjunctiva clear. ENT: oropharynx clear without exudates, moist mucous membranes. NECK: Trachea midline, supple. LUNGS: Breath sounds equal, clear to auscultation bilaterally, no wheezes, no crackles, no accessory muscle use. HEART: Regular rate and rhythm, S1, S2 without murmur, rub or gallop. ABDOMEN: Soft, nontender, nondistended, normoactive bowel sounds, no guarding, no rebound, no hepatosplenomegaly, no masses. EXTREMITIES: 2+ posterior tibial pulses, warm, well-perfused, no edema. NEUROLOGICAL: Cranial nerves II through XII grossly intact. LABS/VITALS TREND Vitals Trend 03/14/17 03/14/17 03/14/17 15:11 18:43 22:00 Temperature 98 F 97.7 F Pulse Rate 76 60 Respiratory 18 20 20 Rate Blood Pressure 121/72 122/66 O2 Sat by Pulse 98 97 Oximetry (%) 03/14/17 03/15/17 03/15/17 22:30 02:31 02:34 Temperature Pulse Rate 65 60 Respiratory 18 20 Rate Blood Pressure 159/61 122/66 O2 Sat by Pulse 95 95 Oximetry (%) 03/15/17 03/15/17 03/15/17 06:00 10:00 14:00 Temperature Pulse Rate 60 60 75 Respiratory 20 18 16 Rate Blood Pressure 142/88 106/66 126/69 O2 Sat by Pulse 98 Oximetry (%) 03/15/17 03/15/17 03/15/17 17:00 18:00 20:40 Temperature Pulse Rate 73 64 Respiratory 20 20 Rate Blood Pressure 141/81 149/88 O2 Sat by Pulse 98 93 L Oximetry (%) 03/16/17 03/16/17 03/16/17 02:00 04:00 06:00 Temperature 98.7 F 97.4 F L Pulse Rate 61 56 L Respiratory 20 20 20 Rate Blood Pressure 120/86 156/75 O2 Sat by Pulse 95 Oximetry (%) 03/16/17 03/16/17 03/16/17 08:41 08:42 12:25 Temperature 98.4 F Pulse Rate 78 Respiratory 18 Rate Blood Pressure 155/85 144/82 O2 Sat by Pulse 98 Oximetry (%) 03/16/17 15:00 Temperature Pulse Rate 62 Respiratory 18 Rate Blood Pressure 135/75 O2 Sat by Pulse 98 Oximetry (%) Laboratory Tests 03/14/17 03/14/17 03/15/17 15:51 15:51 05:35 WBC 13.2 H D 13.5 H Random Glucose 89 D Hemoglobin A1c % Total Bilirubin 1.2 H D AST 72 H D ALT 70 D Alkaline Phosphatase 184 H Creatine Kinase 227 H D Troponin I < 0.02 03/15/17 03/15/17 03/15/17 05:35 05:35 05:35 WBC Random Glucose 92 Hemoglobin A1c % 6.5 H D Total Bilirubin 1.3 H AST 51 H D ALT 57 Alkaline Phosphatase 169 H Creatine Kinase 138 Troponin I < 0.02 03/16/17 03/16/17 05:35 05:35 WBC 10.3 H Random Glucose 121 H D Hemoglobin A1c % Total Bilirubin AST ALT Alkaline Phosphatase Creatine Kinase Troponin I IMAGING Chest x-ray (03/14/2017): no pulmonary disease noted EKG (03/14/2017): non specific T wave abnormality, abnormal EKG when compared with EKG from August 27, 2016, QT has shortened Repeat EKG (03/15/2017): no significant change when compared with 03/14/2017 EKG, borderline EKG Echocardiogram (03/15/2017): no regional wall motion abnormalities Stress test (03/16/2017): normal myocardial perfusion, no ischemia, LVEF 67%. normal persantine stress EKG HOSPITAL COURSE: Date of Admission:03/14/17 Date of Discharge: 03/16/17 Admit diagnosis: Atypical chest pain r/o ACS Pre-admission course This is a 56 year old female with PMH of HTN, DM, and depression/anxiety, who presented to the ED with chest pain, diaphoresis, chills, shortness of breath, and dizziness over the last few hours. She stated that she was gardening when these symptoms came on suddenly. Patient had been over exerting herself lately, and had been gardening the whole day prior to admission. She was seen in the ED a day before this admission for a poison Sasha rash. As per patient, chest pain was sudden in onset and only lasted for a few minutes. It didn't radiate and was sub-sternal and dull in character. On admission, her symptoms had since resolved, except for dizziness, which she still had. Patient reported similar episodes in the past that usually resolve on their own. Her stress test last year was negative. Patient denied fevers, recent sick contacts or recent illnesses. She endorsed decreased PO fluid intake. Hospital course After patient was admitted, troponins were trended to rule out acute coronary syndrome, as patient had presented with chest pain. All three troponins were within normal limits, under 0.02 value. An EKG was obtained and revealed non specific T wave abnormality, abnormal EKG when compared to EKG from July 2016. A repeat EKG was done that showed no significant change. Echo confirmed no regional wall motion abnormalities, and stress test showed normal myocardial perfusion, without ischemia, and a normal persantine stress EKG. Patient's chest pain subsided. Patient also endorsed itchiness on her right and left upper extremities and neck , from poison sasha exposure from gardening. Prednisone 10mg PO was started due to pruritis and chest discomfort. She will continue this medication for 5 days after her discharge. Patient was also given Hydrocortisone cream 1% to apply to the affected area, however since she still felt itchy, this was switched to Triamcinolone 0.1% cream which she will apply at home on the affected area, once daily, over the course of the week. Patient will follow-up with her primary care physician and a cold patcher in one week. Minutes to complete discharge: 32 Discharge Summary Reason For Visit: CHEST PAIN Current Active Problems Chest pain (Acute) Rash and nonspecific skin eruption (Acute) Diabetes mellitus (Chronic) Condition: Stable - Instructions Diet, Activity, Other Instructions: You were recently in the hospital for chest pain. Resume activity as tolerated. Please follow-up with your primary care physician and a cold patcher, Dr. Jacinto, in one week. You may resume your home medications. Also please take the following for your poison sasha: -Prednisone 10 mg - one tablet by mouth for the next 5 days, starting tomorrow ( 03/17) until (03/21) -Triamcinolone 0.1% cream- apply to affected area once a day for a week If you develop chest pain, become short of breath, or develop any new symptoms, please go to the hospital. Referrals: Lionel Jacinto MD [Staff Physician] - Leilani Ledbetter MD [Primary Care Provider] - Disposition: HOME - Home Medications Comprehensive Discharge Medication List: Ambulatory Orders Albuterol Sulfate Inhaler - [Ventolin HFA Inhaler -] 2 inh PO Q6H PRN 03/14/17 Escitalopram Oxalate [Lexapro -] 20 mg PO DAILY 03/14/17 Gabapentin 600 mg PO BID 03/14/17 Hydrochlorothiazide 25 mg PO DAILY 03/14/17 Lactulose (Oral Use) [Cephulac -] 20 gm PO DAILY 03/14/17 Losartan Potassium 100 mg PO DAILY 03/14/17 Metformin HCl [Metformin HCl ER] 1,000 mg PO BID 03/14/17 Montelukast Na [Singulair -] 10 mg PO HS 03/14/17 Trazodone HCl [Desyrel -] 150 mg PO HS 03/14/17 Prednisone [Deltasone -] 10 mg PO DAILY #5 tablet 03/16/17 Triamcinolone 0.1% Cream [Aristocort 0.1% Cream -] 1 applic TP DAILY PRN #1 tube 03/16/17 This patient is new to me today: No Emergency Visit: No Critical Care patient: No - Discharge Referral Referred to [facility] No
--- NOTE | 2017-03-16 16:25 | PN ---
Teaching Attending Note Name of Resident: Sariah Zhang ATTENDING PHYSICIAN STATEMENT I saw and evaluated the patient. I reviewed the resident's note and discussed the case with the resident. I agree with the resident's findings and plan as documented. SUBJECTIVE: Patient still complains of itching. OBJECTIVE: Vital Signs Period Temp Pulse Resp BP Sys/Poe Pulse Ox Last 24 Hr 97.4 F-98.7 F 56-78 18-20 120-156/75-88 93-98 ASSESSMENT AND PLAN: HEART: S1S2, RRR LUNGS: Clear ABDOMEN: Soft, non-tender, non-distended, normal BS EXTREMITIES: No edema SKIN: Macular and vesicular rash on both arms and right neck ASSESSMENT AND PLAN: This is a 56-year-old woman with a history of HTN, type 2 DM, fibromyalgia, depression, anxiety, hepatitis C, alcoholic abuse, cirrhosis, SVT who presented to the ER with chest pain, SOB, diaphoresis, and dizziness. 1. Chest pain - Resolved - Reports negative stress test last year - Echocardiogram shows borderline reduced LV systolic function, trace to mild MR, mild TR - Stress test pending - if negative, will discharge home 2. HTN - Restart Cozaar, HCTZ 3. Type 2 DM - Hold Metformin - Fingersticks with Novolog sliding scale 4. Depression, anxiety, fibromyalgia - Continue Lexapro, Neurontin, Trazodone 5. Cirrhosis, history of alcohol abuse, hepatitis C - Continue Lactulose 6. Asthma - Continue Singulair, albuterol as needed 7. History of SVT, ablation 8. Contact dermatitis, likely poison henry - Continue Prednisone, hydrocortisone cream, Benadryl as needed
[2017-03-17] MEDS ORDERED: LOSARTAN POTASSIUM 50 MG TABLET (FP) PO SCH (10:00)
[2017-03-17] MEDS ORDERED: HYDROCHLOROTHIAZIDE 25 MG TABLET (FP) PO SCH (10:00)
== END 2017-03-16 17:39 | disposition home or self-care (01) ==
LOC: JER 15:10 → JERBED 17:25 → J4W 19:45
PROVIDERS: ADMIT Internal Medicine; ATTEND Internal Medicine
PROC: 3E033GC Introduction of Other Therapeutic Substance into Peripheral Vein, Percutaneous Approach (ICD-10-PCS; principal; 2017-03-14)
PROC: 3E0337Z Introduction of Electrolytic and Water Balance Substance into Peripheral Vein, Percutaneous Approach (ICD-10-PCS; 2017-03-14)
PROC: 3E0F7GC Introduction of Other Therapeutic Substance into Respiratory Tract, Via Natural or Artificial Opening (ICD-10-PCS; 2017-03-14)
DX: R07.9 Chest pain, unspecified (principal); I10 Essential (primary) hypertension; E11.9 Type 2 diabetes mellitus without complications; K70.30 Alcoholic cirrhosis of liver without ascites; B18.2 Chronic viral hepatitis C; J45.909 Unspecified asthma, uncomplicated; F10.21 Alcohol dependence, in remission; F32.9 Major depressive disorder, single episode, unspecified; F41.9 Anxiety disorder, unspecified; M79.7 Fibromyalgia; Z87.891 Personal history of nicotine dependence; L23.7 Allergic contact dermatitis due to plants, except food
CPT/HCPCS: 36415; 71010-TC; 78452-TC; 80048; 80053; 80061; 82550; 82553; 83036; 83721; 83735; 83880; 84100; 84484; 85025; 85027; 93005; 93010; 93017; 93306-TC; 94640; 96361; 96374; 99283-25; A9502; G0378

== ENCOUNTER 2018-10-01 16:33 | Emergency (ER) | payer OTHER ==
[2018-10-01 16:51] VITALS: BP 137/84; PULSE 69; TEMP 97.6; BMI 32.9
[2018-10-01] MEDS ORDERED: diazePAM 5 MG TABLET PO ONE (16:51)
[2018-10-01] MEDS ORDERED: KETOROLAC TROMETHAMINE 30 MG/1 ML VIAL IM ONE (16:51)
--- NOTE | 2018-10-01 16:51 | PDOC ---
Rapid Medical Evaluation Time Seen by Provider: 10/01/18 16:49 Medical Evaluation: Allergies Allergy/AdvReac Type Severity Reaction Status Date / Time No Known Allergies Allergy Verified 10/01/18 16:48 10/01/18 16:49 I have performed a brief in-person evaluation of this patient. The patient presents with a chief complaint of: pain in right lower back radiating down right leg since yesterday States chronic issue, took gabapentin and tramadol with no relief of pain. Deneis injury or fall Pertinent physical exam findings: NAD even and unlabored breathing no mid spinal tenderness I have ordered the following: analgesia The patient will proceed to the ED for further evaluation.
[2018-10-01] MEDS ORDERED: KETOROLAC TROMETHAMINE 60 MG/2 ML VIAL IM ONE (17:56)
--- NOTE | 2018-10-01 18:00 | PDOC ---
History of Present Illness - General Chief Complaint: Pain, Acute Stated Complaint: PAIN Time Seen by Provider: 10/01/18 16:49 - History of Present Illness Initial Comments: 10/01/18 17:59 58-year-old female presents for evaluation of lower back pain with right leg radicular symptoms 2 days. No loss of bowel or bladder function saddle paresthesias or systemic symptoms. Past History - Past Medical History Allergies/Adverse Reactions: Allergies Allergy/AdvReac Type Severity Reaction Status Date / Time No Known Allergies Allergy Verified 10/01/18 16:48 Home Medications: Ambulatory Orders Escitalopram Oxalate [Lexapro -] 20 mg PO DAILY 03/14/17 Gabapentin 600 mg PO BID 03/14/17 Hydrochlorothiazide 25 mg PO DAILY 03/14/17 Lactulose (Oral Use) [Cephulac -] 20 gm PO ASDIR 03/14/17 Losartan Potassium 100 mg PO DAILY 03/14/17 Montelukast Na [Singulair -] 10 mg PO HS 03/14/17 metFORMIN HCL [Metformin ER Osmotic] 1,000 mg PO BID 03/14/17 Albuterol Sulfate Inhaler - [Ventolin HFA Inhaler -] 1 - 2 inh PO Q4H #1 inhaler 10/20/17 Ergocalciferol [Vitamin D2] 50,000 unit PO Q7D@1000 #4 capsule 06/07/18 Tramadol HCl 50 mg PO BID PRN #60 tablet MDD 2 09/04/18 Cyclobenzaprine HCl [Flexeril 10 mg] 10 mg PO HS PRN #10 tablet 10/01/18 Methylprednisolone [Medrol Dose [place]] 4 mg PO ASDIR #21 tablet 10/01/18 Anemia: No Asthma: Yes Cancer: No Cardiac Disorders: No CVA: No COPD: Yes CHF: No Dementia: No Diabetes: Yes GI Disorders: Yes Disorders: No HTN: Yes Hypercholesterolemia: No Liver Disease: Yes (cirrhosis) Seizures: No Thyroid Disease: No Lung CA: (CIRRHOSIS--ALCOHOLIC. S/P DRINKER 21 YRS AGO) - Surgical History Abdominal Surgery: Yes (SPLENECTOMY) Appendectomy: No Cardiac Surgery: Yes (Ablation for SVT) Cholecystectomy: Yes Lung Surgery: No Neurologic Surgery: No Orthopedic Surgery: Yes (left tibial fracture 08/28/16) - Immunization History Immunization Up to Date: Yes - Suicide/Smoking/Psychosocial Hx Smoking History: Current every day smoker Have you smoked in the past 12 months: No If you are a former smoker, when did you quit?: 23 YEARS Information on smoking cessation initiated: No Hx Alcohol Use: Yes (none x 23 years) Drug/Substance Use Hx: No Substance Use Type: Alcohol Hx Substance Use Treatment: No Review of Systems - Review of Systems Musculoskeletal: Yes: See HPI, Back Pain *Physical Exam - Vital Signs Last Vital Signs Temp Pulse Resp BP Pulse Ox 97.6 F 69 20 137/84 97 10/01/18 16:49 10/01/18 16:49 10/01/18 16:49 10/01/18 16:49 10/01/18 16:49 - Physical Exam Comments: 10/01/18 17:59 Lumbar spine skin color and temperature are normal. Range of motion is slightly decreased. There is moderate paralumbar musculature tenderness. Mild spasm. 5 out of 5 strength in bilateral lower extremities without gross sensorimotor deficits. Neurovascular intact. Moderate Sedation - Procedure Monitoring Vital Signs: Procedure Monitoring Vital Signs Temperature 97.6 F 10/01/18 16:49 Pulse Rate 69 10/01/18 16:49 Respiratory Rate 20 10/01/18 16:49 Blood Pressure 137/84 10/01/18 16:49 O2 Sat by Pulse Oximetry (%) 97 10/01/18 16:49 Medical Decision Making - Medical Decision Making 10/01/18 18:00 Medication list was reviewed.. Patient states she only takes Neurontin and tramadol for pain she is on no other prescription medications. *DC/Admit/Observation/Transfer Diagnosis at time of Disposition: Lumbar radicular pain - Discharge Dispostion Disposition: HOME Condition at time of disposition: Stable Decision to Admit order: No - Prescriptions Prescriptions: Cyclobenzaprine HCl [Flexeril 10 mg] 10 mg PO HS PRN #10 tablet PRN Reason: Muscle Spasms Methylprednisolone [Medrol Dose [place]] 4 mg PO ASDIR #21 tablet - Referrals Referrals: Shashank Hu MD [Staff Physician] - - Patient Instructions Printed Discharge Instructions: Lumbar Radiculopathy, DI for Lumbar Radiculopathy Additional Instructions: Please take the medication as directed. If you need additional medication you may take Tylenol. Do not take any anti-inflammatory such as Advil Motrin Aleve or ibuprofen. Return to the emergency room should symptoms worsen or go unresolved and follow-up with spine surgery in 2-3 days for further evaluation and treatment options. - Post Discharge Activity
[2018-10-01] MEDS ORDERED: KETOROLAC TROMETHAMINE 60 MG/2 ML VIAL ONE (18:04)
[2018-10-01] MEDS ORDERED: ACETAMINOPHEN 500 MG TABLET (FP) PO ONE (18:56)
[2018-10-01] MEDS ORDERED: ACETAMINOPHEN 500 MG TABLET (FP) ONE (19:03)
== END 2018-10-01 19:41 | disposition home or self-care (01) ==
LOC: JERFT 16:33
PROC: 3E0233Z Introduction of Anti-inflammatory into Muscle, Percutaneous Approach (ICD-10-PCS; principal; 2018-10-01)
DX: M54.16 Radiculopathy, lumbar region (principal); I10 Essential (primary) hypertension; E11.9 Type 2 diabetes mellitus without complications; Z79.84 Long term (current) use of oral hypoglycemic drugs; J45.909 Unspecified asthma, uncomplicated; K70.30 Alcoholic cirrhosis of liver without ascites
CPT/HCPCS: 96372; 99281-25

== ENCOUNTER 2018-11-06 10:08 | Emergency (ER) | payer OTHER ==
[2018-11-06 10:21] VITALS: BP 122/76; PULSE 80; TEMP 98.6; BMI 32.9
[2018-11-06] MEDS ORDERED: LACTATED RINGERS SOLUTION 1000 ML INFUS.BAG IV ONE (10:52)
--- NOTE | 2018-11-06 11:03 | PDOC ---
History of Present Illness - General Chief Complaint: Vomiting/Diarrhea Stated Complaint: COLD SYMPTOMS/ BODY ACHES Time Seen by Provider: 11/06/18 10:33 History Source: Patient, Old Records Exam Limitations: No Limitations - History of Present Illness Initial Comments: HPI: 58 y/o female presenting to [facility] ER complaining of sore throat, non-productive cough, vomiting, diarrhea, and body aches. Symptoms started on Monday with sore throat. Pt states her body aches felt worse this morning, which prompted her to seek emergency evaluation. Decreased appetite but able to tolerate PO fluids. Single episode of emesis this AM described as nonbloody and nonbilious. Single episode of diarrhea versus loose stool this AM. No blood. Denies sick contacts. Endorses chills without fever. PCP: Olimpia Small Hx: - Alcoholic liver cirrhosis, sober for many years - COPD - DM - HTN - Fibromyalgia - Chronic Back Pain Surgical Hx: - Splenectomy - Cholecystectomy - x4 - DNC x2 Past History - Past Medical History Allergies/Adverse Reactions: Allergies Allergy/AdvReac Type Severity Reaction Status Date / Time No Known Allergies Allergy Verified 11/06/18 11:01 Home Medications: Ambulatory Orders Gabapentin 600 mg PO BID 03/14/17 Hydrochlorothiazide 25 mg PO DAILY 03/14/17 Losartan Potassium 100 mg PO DAILY 03/14/17 Montelukast Na [Singulair -] 10 mg PO HS 03/14/17 metFORMIN HCL [Metformin ER Osmotic] 1,000 mg PO BID 03/14/17 Albuterol Sulfate Inhaler - [Ventolin HFA Inhaler -] 1 - 2 inh PO Q4H #1 inhaler 10/20/17 Baclofen 10 mg PO BID PRN #30 tablet 11/02/18 Docusate Sodium [Colace -] 100 mg PO TID #90 capsule 11/02/18 Ergocalciferol [Vitamin D2] 50,000 unit PO Q7D@1000 #4 capsule 11/02/18 Tramadol HCl 50 mg PO BID PRN #60 tablet MDD 2 11/02/18 Oseltamivir Phosphate [Tamiflu -] 75 mg PO BID #10 capsule 11/06/18 Anemia: No Asthma: Yes Cancer: No Cardiac Disorders: No CVA: No COPD: Yes CHF: No Dementia: No Diabetes: Yes GI Disorders: Yes Disorders: No HTN: Yes Hypercholesterolemia: No Liver Disease: Yes (cirrhosis) Seizures: No Thyroid Disease: No Lung CA: (CIRRHOSIS--ALCOHOLIC. S/P DRINKER 21 YRS AGO) - Surgical History Abdominal Surgery: Yes (SPLENECTOMY) Appendectomy: No Cardiac Surgery: Yes (Ablation for SVT) Cholecystectomy: Yes Lung Surgery: No Neurologic Surgery: No Orthopedic Surgery: Yes (left tibial fracture 08/28/16) - Immunization History Immunization Up to Date: Yes - Suicide/Smoking/Psychosocial Hx Smoking History: Never smoked Have you smoked in the past 12 months: No If you are a former smoker, when did you quit?: 23 YEARS Hx Alcohol Use: No Drug/Substance Use Hx: No Substance Use Type: Alcohol Hx Substance Use Treatment: No Review of Systems - Review of Systems Able to Perform ROS?: Yes Comments:: In addition to that documented in the HPI above, the additional ROS was obtained : Constitutional: Endorses chills. Denies fevers. Head: Endorses generalized headache ENMT: Endorses sore throat CV: Denies chest pain Resp: Denies SOB GI: Endorses vomiting and diarrhea : Denies painful urination, dysuria, or hematuria MSK: Denies recent trauma Skin: Denies new rashes Neuro: Denies new numbness or tingling or weakness Endocrine: Denies polyuria Heme: Denies bleeding or bruising *Physical Exam - Vital Signs Last Vital Signs Temp Pulse Resp BP Pulse Ox 98.6 F 80 18 122/76 99 11/06/18 10:19 11/06/18 10:19 11/06/18 10:19 11/06/18 10:19 11/06/18 10:19 - Physical Exam Comments: Constitutional: Well-developed, well-nourished, non-toxic elderly female in no acute distress or obvious discomfort. Found semi-folwers on hospital bed. Alert and oriented x4. Answered all questions appropriately and completely. Speech was non-labored, non-pressured. Head: Normocephalic. No obvious external signs of trauma. Eyes: Sclerae white. Conjunctiva moist and not injected. Ears: Hearing grossly intact. Nose: No nasal discharge. Throat: Oral cavity and pharynx normal. No inflammation, swelling, exudate, or lesions. Moist mucosal membranes. Neck: Supple, trachea is midline. Cardiovascular / Chest: Regular rate and regular rhythm. No murmur, rubs, clicks, or gallops. Peripheral pulses: radial pulses full. Respiratory: Occasional dry sounding cough. Breathing unlabored. Equal chest rise and fall. Clear to auscultation in anterior and posterior bilateral lung lowry. No stridor, no wheezing, no rhonchi. No consolidation. Gastrointestinal: abdomen is tender in LUQ and midline without rebound or guarding. Globally, abdomen is soft and non-distended. No pulsatile masses. No overlying skin lesions or obvious signs of trauma. Post surgical scars in midline. Neuro: Alert and oriented. Moving all four extremities spontaneously. Skin: Warm, dry, and intact. No bruising, rashes, or other lesions. No palpable nodules. : No R or L CVA tenderness. Psych: Affect: appropriate. Mood: normal. Moderate Sedation - Procedure Monitoring Vital Signs: Procedure Monitoring Vital Signs Temperature 98.6 F 11/06/18 10:19 Pulse Rate 80 11/06/18 10:19 Respiratory Rate 18 11/06/18 10:19 Blood Pressure 122/76 11/06/18 10:19 O2 Sat by Pulse Oximetry (%) 99 11/06/18 10:19 ED Treatment Course - LABORATORY CBC & Chemistry Diagram: 11/06/18 11:37 11/06/18 11:37 - ADDITIONAL ORDERS Additional order review: 11/06/18 11:37 Sodium 137 Potassium 3.6 Chloride 100 Carbon Dioxide 32 Anion Gap 5 L BUN 13 Creatinine 0.6 Creat Clearance w eGFR > 60 Random Glucose 95 Calcium 9.0 Total Bilirubin 1.5 H AST 48 H ALT 39 Alkaline Phosphatase 125 H Total Protein 7.2 Albumin 3.4 Lipase 300 11/06/18 11:37 RBC 4.45 MCV 92.0 MCHC 34.7 RDW 14.0 MPV 9.7 Neutrophils % 36.2 L D Lymphocytes % 43.9 H D Monocytes % 18.0 H D Eosinophils % 0.9 Basophils % 1.0 - RADIOLOGY Radiology Studies Ordered: Category Date Time Status CHEST PA & LAT [RAD] Stat Radiology 11/06/18 10:55 Ordered - Medications Given in the ED: ED Medications Discontinued Medications Generic Name Dose Route Start Last Admin Trade Name Freq PRN Reason Stop Dose Admin Lactated Ringer's 1,000 ml 11/06/18 10:52 11/06/18 11:43 Lactated Ringers Solution IV 11/06/18 10:53 1,000 ml ONCE ONE Administration Ondansetron HCl 4 mg 11/06/18 13:02 11/06/18 13:32 Zofran Injection IVPUSH 11/06/18 13:03 4 mg ONCE ONE Administration Medical Decision Making - Medical Decision Making *Reviewed vital signs, nursing notes, and prior visit documentation (if available). 58 y/o female presenting with flu like symptoms x3 days. Afebrile. Vitals unremarkable for hypotension or tachycardia. Physical exam as described above. Will obtain basic labs. Will obtain CXR given COPD history and report of cough and chills. Low suspicion pneumonia. CBC unremarkable for leukocytosis or anemia. CMP remarkable for mild LFT elevation, which is consistent with h/o of alcoholic cirrhosis and trend documented in [employer]. Low suspicion for clinical relevance. Pt reassessed and reports feeling better. Tolerated PO without difficulty. Suspect viral syndrome versus influenza. Given duration of symptoms and pts PMH , will offer Tamiflu. Discussed indications and side effects of medication. Provided DocSend patient handout. Discussed imaging and laboratory results with pt. Answered all questions. Provided return precautions. Pt expressed verbal understanding and agreement with plan to discharge home with outpatient follow up. *DC/Admit/Observation/Transfer Diagnosis at time of Disposition: Flu-like symptoms - Discharge Dispostion Disposition: HOME Condition at time of disposition: Good Decision to Admit order: No - Prescriptions Prescriptions: Oseltamivir Phosphate [Tamiflu -] 75 mg PO BID #10 capsule - Referrals Referrals: Ramon Doan MD [Primary Care Provider] - - Patient Instructions Additional Instructions: You were seen today for flu-like symptoms. Your blood work showed mild elevation in your liver enzymes, which appears to be your baseline when compared to earlier lab results in our computer. Your chest xray was normal. I have sent a prescription for Tamiflu to your pharmacy. Take as directed on the package insert. Do not exceed the recommended dosage. Follow up with your primary care doctor within the next 3-4 days. You will need to call to make an appointment. The number is included in this packet. A copy of todays results are attached to this packet. Take it to the appointment so your doctor can review them. Go to the nearest emergency department if your condition worsens or you feel like you need additional emergency evaluation. Print Language: MOHAWK - Post Discharge Activity
[2018-11-06 12:06] LABS: EOS % 0.9 % (0-4.5); HEMATOCRIT 40.9 % (32.4-45.2); HEMOGLOBIN 14.2 GM/dL (10.7-15.3); LYMPH % 43.9 % (8-40); MCH 31.9 pg (25.7-33.7); MCHC 34.7 g/dl (32.0-36.0); MEAN PLT VOLUME 9.7 fl (7.5-11.1); NEUT % 36.2 % (42.8-82.8); PLATELET COUNT 176 K/MM3 (134-434); RBC 4.45 M/mm3 (3.60-5.2); WHITE BLOOD COUNT 7.3 K/mm3 (4.0-10.0)
[2018-11-06 12:32] LABS: ALBUMIN 3.4 g/dl (3.4-5.0); ALK PHOS 125 U/L (45-117); ANION GAP 5 MMOL/L (8-16); BILIRUBIN,TOTAL 1.5 mg/dL (0.2-1); BLOOD UREA NITROGEN 13 mg/dL (7-18); CHLORIDE 100 mmol/L (98-107); CO2 32 mmol/L (21-32); CREATININE 0.6 mg/dL (0.55-1.3); GLUCOSE,RANDOM 95 mg/dL (74-106); LIPASE 300 U/L (73-393); POTASSIUM 3.6 mmol/L (3.5-5.1); SGOT/AST 48 U/L (15-37); SGPT/ALT 39 U/L (13-61); SODIUM 137 mmol/L (136-145); TOT PROT 7.2 g/dl (6.4-8.2)
[2018-11-06] MEDS ORDERED: ONDANSETRON 4 MG/2 ML VIAL IVPUSH ONE (13:02)
[2018-11-06] MEDS ORDERED: ONDANSETRON 4 MG/2 ML VIAL ONE (13:24)
--- NOTE | 2018-11-06 14:22 | PDOC ---
Attending Attestation - Resident Resident Name: Axel Silva - ED Attending Attestation I have performed the following: I have examined & evaluated the patient, The case was reviewed & discussed with the resident, I agree w/resident's findings & plan, Exceptions are as noted
== END 2018-11-06 14:25 | disposition home or self-care (01) ==
LOC: JER 10:08 → SUPCPDRO 10:08 → JER 14:23
PROC: 3E033GC Introduction of Other Therapeutic Substance into Peripheral Vein, Percutaneous Approach (ICD-10-PCS; principal; 2018-11-06)
DX: J11.1 Influenza due to unidentified influenza virus with other respiratory manifestations (principal); I10 Essential (primary) hypertension; E11.9 Type 2 diabetes mellitus without complications; Z79.84 Long term (current) use of oral hypoglycemic drugs; J44.9 Chronic obstructive pulmonary disease, unspecified; M79.7 Fibromyalgia; K70.30 Alcoholic cirrhosis of liver without ascites
CPT/HCPCS: 36415; 71046-TC-FY; 80053; 83690; 85025; 96374; 99282-25

== ENCOUNTER 2018-12-25 12:11 | Emergency (ER) | payer OTHER ==
[2018-12-25] MEDS ORDERED: ALBUTEROL SO4 2.5/IPRATROPIUM 0.5 INH SOL 3 ML VIAL.NEB. NEB ONE ×2 (12:29→13:49)
[2018-12-25] MEDS ORDERED: methylPREDNISolone NA SUCC 125 MG/2 ML VIAL IVPUSH ONE (12:30)
--- NOTE | 2018-12-25 12:32 | PDOC ---
History of Present Illness - General Stated Complaint: ASTHMA Time Seen by Provider: 12/25/18 12:18 History Source: Patient Exam Limitations: No Limitations - History of Present Illness Initial Comments: 12/25/18 12:30 58F with a PMH of COPD, DM, HTN, fibromyalgia, alcoholic liver cirrhosis, and chronic back pain who presents to the ER with 2 days of worsening cough, congestion, and SOB. The patient states she's been using her singulair nebulizer without help in her symptoms. She admits to congestion and productive cough. She denies fever, chills, CP, nausea, vomiting, abdominal pain, and dysuria. Past History - Past Medical History Allergies/Adverse Reactions: Allergies Allergy/AdvReac Type Severity Reaction Status Date / Time No Known Allergies Allergy Verified 11/06/18 11:01 Home Medications: Ambulatory Orders Gabapentin 600 mg PO BID 03/14/17 Hydrochlorothiazide 25 mg PO DAILY 03/14/17 Losartan Potassium 100 mg PO DAILY 03/14/17 Montelukast Na [Singulair -] 10 mg PO HS 03/14/17 metFORMIN HCL [Metformin ER Osmotic] 1,000 mg PO BID 03/14/17 Albuterol Sulfate Inhaler - [Ventolin HFA Inhaler -] 1 - 2 inh PO Q4H #1 inhaler 10/20/17 Baclofen 10 mg PO BID PRN #30 tablet 11/02/18 Ergocalciferol [Vitamin D2] 50,000 unit PO Q7D@1000 #4 capsule 11/02/18 Docusate Sodium [Colace -] 100 mg PO TID #90 capsule 12/03/18 Tramadol HCl 50 mg PO BID PRN #60 tablet MDD 2 12/03/18 Azithromycin [Zithromax 250mg Tablets -] 250 mg PO UTDICT #6 tab 12/25/18 Anemia: No Asthma: Yes Cancer: No Cardiac Disorders: No CVA: No COPD: Yes CHF: No Dementia: No Diabetes: Yes GI Disorders: Yes Disorders: No HTN: Yes Hypercholesterolemia: No Liver Disease: Yes (cirrhosis) Seizures: No Thyroid Disease: No Lung CA: (CIRRHOSIS--ALCOHOLIC. S/P DRINKER 21 YRS AGO) - Surgical History Abdominal Surgery: Yes (SPLENECTOMY) Appendectomy: No Cardiac Surgery: Yes (Ablation for SVT) Cholecystectomy: Yes Lung Surgery: No Neurologic Surgery: No Orthopedic Surgery: Yes (left tibial fracture 08/28/16) - Immunization History Immunization Up to Date: Yes - Suicide/Smoking/Psychosocial Hx Smoking History: Never smoked Have you smoked in the past 12 months: No If you are a former smoker, when did you quit?: 23 YEARS Hx Alcohol Use: Yes (none x 25+ years) Drug/Substance Use Hx: No Substance Use Type: Alcohol Hx Substance Use Treatment: No Review of Systems - Review of Systems Able to Perform ROS?: Yes Comments:: 12/25/18 12:39 GENERAL/CONSTITUTIONAL: No fever or chills. No weakness. HEAD, EYES, EARS, NOSE AND THROAT: No change in vision. No ear pain or discharge. No sore throat. CARDIOVASCULAR: No chest pain, palpitations, or lightheadedness. RESPIRATORY: + for cough and shortness of breath. GASTROINTESTINAL: No nausea, vomiting, diarrhea, constipation, or abdominal pain. GENITOURINARY: No dysuria, frequency, hematuria, or change in urination. MUSCULOSKELETAL: No joint or muscle swelling or pain. No neck or back pain. SKIN: No rash or lesions. NEUROLOGIC: No headache, numbness, tingling, focal weakness, loss of consciousness, or change in strength/sensation. Is the patient limited Stateless proficient: No *Physical Exam - Physical Exam Comments: 12/25/18 12:39 GENERAL: Well developed, well nourished. Awake and alert. No acute distress. HEENT: Normocephalic, atraumatic. Hearing grossly normal. Moist mucous membranes. PERRLA, EOMI. No conjunctival pallor. Sclera are non-icteric. NECK: Supple. Full ROM. No JVD. CARDIOVASCULAR: Regular rate and rhythm. No murmurs, rubs, or gallops. PULMONARY: No evidence of respiratory distress. Rales in lower and middle lobes. ABDOMINAL: Soft. Non-tender. Non-distended. No rebound or guarding. No organomegaly. Normoactive bowel sounds. GENITOURINARY: No CVA tenderness bilaterally. MUSCULOSKELETAL: Normal range of motion at all joints. No bony deformities or tenderness. EXTREMITIES: No cyanosis. No clubbing. No edema. No calf tenderness or swelling. SKIN: Warm and dry. Normal capillary refill. No rashes. No jaundice. NEUROLOGICAL: Alert, awake, appropriate. Cranial nerves 2-12 grossly intact. Normal speech. Gait is normal without ataxia. PSYCHIATRIC: Cooperative. Good eye contact. Appropriate mood and affect. ED Treatment Course - LABORATORY CBC & Chemistry Diagram: 12/25/18 10:31 12/25/18 10:31 - RADIOLOGY Radiology Studies Ordered: Category Date Time Status CHEST X-RAY PORTABLE* [RAD] Stat Radiology 12/25/18 12:28 Ordered Medical Decision Making - Medical Decision Making 12/25/18 12:42 58F with a PMH of COPD, HTN, DM, who presents to the ER with 2 days of worsening SOB and cough, concerning for COPD exacerbation vs URI vs bronchitis. Due to hx of COPD, will begin treatment with nebulizers and steroids and reassess. Pending labs and CXR. Low risk for cardiac cause of SOB, but will r/o with EKG and troponin. 12/25/18 14:30 Tbili elevated at 1.8. Pt denies abdominal pain. Will d/w Dr. Doan, pt's PCP and d/c with PCP f/u. 12/25/18 14:46 Case d/w Nurse Genet at Dr. Doan's office and informed of elevated bilirubin. Will d/c with PCP f/u. *DC/Admit/Observation/Transfer Diagnosis at time of Disposition: COPD (chronic obstructive pulmonary disease) Qualifiers: COPD type: COPD with acute exacerbation Qualified Code(s): J44.1 - Chronic obstructive pulmonary disease with (acute) exacerbation - Discharge Dispostion Disposition: HOME Condition at time of disposition: Stable Decision to Admit order: No - Prescriptions Prescriptions: Azithromycin [Zithromax 250mg Tablets -] 250 mg PO UTDICT #6 tab - Referrals Referrals: Thor Kidd MD [Primary Care Provider] - - Patient Instructions Printed Discharge Instructions: DI for Chronic Obstructive Pulmonary Disease Additional Instructions: Your ER visit is not complete until your follow up with your primary care physician. Please follow up with your primary care physician in 1-2 days. Please return to the ER if you have any signs or symptoms of chest pain, shortness of breath, uncontrollable fever, chills, nausea, vomiting, numbness, tingling, or weakness in any part of your body, changes in vision, or slurred speech. Please take your medications as prescribed. Please return to the ER if symptoms persist, worsen, or new symptoms arise. - Post Discharge Activity
[2018-12-25 12:52] VITALS: PULSE 74; TEMP 98.2; BMI 32.1
[2018-12-25 13:39] LABS: VENOUS PC02 44.9 mmHg (41-51); VENOUS PH 7.41 (7.31-7.41)
[2018-12-25 13:43] LABS: BASO % 1.8 % (0-2.0); EOS % 2.1 % (0-4.5); HEMATOCRIT 40.3 % (32.4-45.2); HEMOGLOBIN 13.5 GM/dL (10.7-15.3); LYMPH % 51.1 % (8-40); MCH 30.9 pg (25.7-33.7); MCHC 33.4 g/dl (32.0-36.0); MEAN CELL VOLUME 92.5 fl (80-96); MEAN PLT VOLUME 9.4 fl (7.5-11.1); MONO % 15.2 % (3.8-10.2); NEUT % 29.8 % (42.8-82.8); PLATELET COUNT 190 K/MM3 (134-434); RBC 4.36 M/mm3 (3.60-5.2); RDW 14.7 % (11.6-15.6); WHITE BLOOD COUNT 6.3 K/mm3 (4.0-10.0)
[2018-12-25] MEDS ORDERED: methylPREDNISolone NA SUCC 125 MG/2 ML VIAL ONE (13:49)
[2018-12-25 14:11] LABS: ALBUMIN 3.3 g/dl (3.4-5.0); ALK PHOS 134 U/L (45-117); ANION GAP 6 MMOL/L (8-16); BILIRUBIN,TOTAL 1.8 mg/dL (0.2-1); BLOOD UREA NITROGEN 11 mg/dL (7-18); CALCIUM 8.7 mg/dL (8.5-10.1); CHLORIDE 105 mmol/L (98-107); CO2 29 mmol/L (21-32); CREATININE 0.6 mg/dL (0.55-1.3); GLUCOSE,RANDOM 83 mg/dL (74-106); POTASSIUM 3.5 mmol/L (3.5-5.1); SGOT/AST 79 U/L (15-37); SGPT/ALT 57 U/L (13-61); SODIUM 140 mmol/L (136-145); TOT PROT 7.4 g/dl (6.4-8.2)
--- NOTE | 2018-12-25 14:18 | PDOC ---
Documentation entered by Erin Virk SCRIBE, acting as scribe for Grayson Ibarra MD. Grayson Ibarra MD: This documentation has been prepared by the [employer] Amanda, SCRIBE, under my direction and personally reviewed by me in its entirety. I confirm that the documentation accurately reflects all work, treatment, procedures, and medical decision making performed by me. Attending Attestation - Resident Resident Name: [email or web address] - ED Attending Attestation I have performed the following: I have examined & evaluated the patient, The case was reviewed & discussed with the resident, I agree w/resident's findings & plan, Exceptions are as noted - HPI HPI: 12/25/18 12:34 The patient is a 58 year old female with a significant past medical history of COPD, DM, HTN, fibromyalgia, alcoholic liver cirrhosis, and chronic back pain who presents to the emergency department via ems with 2 days of progressive cough, congestion, and shortness of breath despite use of her Singulair and nebulizer treatments. The patient denies chest pain, shortness of breath, headache, dizziness. The patient denies abdominal pain, nausea, vomiting, diarrhea. - Physicial Exam PE: 12/25/18 13:30 Vitals: Triage vital signs reviewed General Appearance: No acute distress, well nourished, well developed Head: Atraumatic Neck: Supple; No nuchal rigidity Chest Wall: Nontender Cardiac: Regular rate and rhythm, no murmurs, no rubs, no gallops Lungs: s/p nebulizers, lungs Clear to auscultation bilateral, good air movement bilaterally Abdomen: Soft, nondistended, normal bowel sounds, nontender to palpation Genitourinary: Rectal: Exam deferred Extremities: Full range of motion to all extremities, no cyanosis, clubbing, or edema Skin: Warm and dry, no rashes or lesions, no rash, no petechiae Psych: Normal mood, normal affect 12/25/18 18:23 - Medical Decision Making 12/25/18 18:22 History examination consistent with COPD exacerbation. Nonischemic EKG. [address] elevations or T-wave inversions labs troponin within normal limits Patient feels better after steroids and nebs. We'll discharge home which short course of steroids nebs she will follow-up with her primary care provider for further management.
[2018-12-25 15:03] VITALS: BP 142/80
--- NOTE | 2018-12-26 10:32 | EKG ---
Test Reason : Blood Pressure : / mmHG Vent. Rate : 070 BPM Atrial Rate : 070 BPM P-R Int : 124 ms QRS Dur : 094 ms QT Int : 438 ms P-R-T Axes : 048 050 037 degrees QTc Int : 473 ms NORMAL SINUS RHYTHM NORMAL ECG WHEN COMPARED WITH ECG OF 14-MAR-2017 21:50, NO SIGNIFICANT CHANGE WAS FOUND Confirmed by SILVER PIRES MD ([id number]) on 12/26/2018 10:32:02 AM Referred By: DR. ORTEGA Confirmed By:SILVER PIRES MD
== END 2018-12-25 15:33 | disposition home or self-care (01) ==
LOC: JER 12:11
PROC: 3E0F7GC Introduction of Other Therapeutic Substance into Respiratory Tract, Via Natural or Artificial Opening (ICD-10-PCS; principal; 2018-12-25)
PROC: 3E0333Z Introduction of Anti-inflammatory into Peripheral Vein, Percutaneous Approach (ICD-10-PCS; 2018-12-25)
DX: J44.1 Chronic obstructive pulmonary disease with (acute) exacerbation (principal); I10 Essential (primary) hypertension; E11.9 Type 2 diabetes mellitus without complications; Z79.84 Long term (current) use of oral hypoglycemic drugs; K70.30 Alcoholic cirrhosis of liver without ascites; M79.7 Fibromyalgia; M54.5 Low back pain; G89.29 Other chronic pain
CPT/HCPCS: 36415; 71045-TC-FY; 80053; 82550; 82553; 82803; 84484; 85025; 93005; 93010; 94640; 96374; 99283-25

== ENCOUNTER 2019-07-06 21:11 | Emergency (ER) | payer OTHER ==
[2019-07-06 21:29] VITALS: BP 127/77; PULSE 78; TEMP 98.2; BMI 31.6
[2019-07-06] MEDS ORDERED: DIPHTH,PERTUSS(ACELL),TET 0.5 ML DISP.SYRIN IM ONE ×2 (21:31→21:32)
--- NOTE | 2019-07-06 21:36 | PDOC ---
History of Present Illness - General Chief Complaint: Laceration Stated Complaint: LACERATION Time Seen by Provider: 07/06/19 21:31 - History of Present Illness Initial Comments: 07/06/19 21:34 58-year-old female with a past medical history of diabetes presents for laceration on her left forearm which occurred last night while moving an air conditioner. She used peroxide to clean the wound with soap and water and she applied Neosporin. She is not current on tetanus. Past History - Past Medical History Allergies/Adverse Reactions: Allergies Allergy/AdvReac Type Severity Reaction Status Date / Time No Known Allergies Allergy Verified 07/06/19 21:27 Home Medications: Ambulatory Orders Gabapentin 600 mg PO BID 03/14/17 Hydrochlorothiazide 25 mg PO DAILY 03/14/17 Losartan Potassium 100 mg PO DAILY 03/14/17 Montelukast Na [Singulair -] 10 mg PO HS 03/14/17 metFORMIN HCL [Metformin ER Osmotic] 1,000 mg PO BID 03/14/17 Albuterol Sulfate Inhaler - [Ventolin HFA Inhaler -] 1 - 2 inh PO Q4H #1 inhaler 10/20/17 Atorvastatin Ca [Lipitor] 10 mg PO HS 01/02/19 Ergocalciferol [Vitamin D2] 50,000 unit PO Q7D@1000 #4 capsule 04/22/19 Baclofen 10 mg PO BID PRN #30 tablet 06/21/19 Docusate Sodium [Colace -] 100 mg PO TID #90 capsule 06/21/19 Psyllium Husk/Aspartame [Metamucil Sugar-Free Powder] 1 tbs PO DAILY PRN #1 jar 06/21/19 Tramadol HCl 50 mg PO BID PRN #60 tablet MDD 2 06/21/19 Anemia: No Asthma: Yes Cancer: No Cardiac Disorders: No CVA: No COPD: Yes CHF: No Dementia: No Diabetes: Yes GI Disorders: Yes Disorders: No HTN: Yes Hypercholesterolemia: No Liver Disease: Yes (cirrhosis, hep C treated) Seizures: No Thyroid Disease: No Lung CA: (CIRRHOSIS--ALCOHOLIC. S/P DRINKER 21 YRS AGO) - Surgical History Abdominal Surgery: Yes (SPLENECTOMY) Appendectomy: No Cardiac Surgery: Yes (Ablation for SVT) Cholecystectomy: Yes Lung Surgery: No Neurologic Surgery: No Orthopedic Surgery: Yes (left tibial fracture 08/28/16) - Immunization History Immunization Up to Date: Yes - Psycho Social/Smoking Cessation Hx Smoking History: Unknown if ever smoked Have you smoked in the past 12 months: No If you are a former smoker, when did you quit?: 23 YEARS Hx Alcohol Use: No Drug/Substance Use Hx: No Substance Use Type: Alcohol Hx Substance Use Treatment: No Review of Systems - Review of Systems Musculoskeletal: Yes: See HPI *Physical Exam - Vital Signs Last Vital Signs Temp Pulse Resp BP Pulse Ox 98.2 F 78 18 127/77 95 07/06/19 21:28 07/06/19 21:28 07/06/19 21:28 07/06/19 21:28 07/06/19 21:28 - Physical Exam Comments: 07/06/19 21:34 There is a long linear laceration on the volar aspect of the left forearm about 6 cm in length. The edges are approximated and healing. No subcutaneous fat is exposed. No gross sensorimotor deficits neurovascularly intact. 5 out of 5 assistant pressman strength 5 out of 5 wrist flexion and extension strength. Medical Decision Making - Medical Decision Making 07/06/19 21:34 This wound does not require sutures. It was cleaned topically with hydrogen peroxide and left open to air. Discussed use of Neosporin and petroleum-based antibacterial ointments I have explained that she should avoid these keep the wound clean and open to air with. Clean the wound with soap and water follow- up with your primary care physician for a wound check in 1 to 2 days her tetanus was updated today. Discharge - Discharge Information Problems reviewed: Yes Clinical Impression/Diagnosis: Laceration Condition: Stable Disposition: HOME - Admission No - Follow up/Referral Referrals: Johnathon Bains MD [Staff Physician] - - Patient Discharge Instructions Additional Instructions: Please follow-up with your primary care physician in 1 to 2 days for a wound check. Please keep the wound open to air as much as possible. Keep it clean with soap and water 2-3 times a day. If you must leave the house and go out you may cover the room with a dry sterile dressing such as dry sterile gauze. Return to the emergency room for further issues. Your tetanus shot was updated today. - Post Discharge Activity
== END 2019-07-06 21:42 | disposition home or self-care (01) ==
LOC: JERFT 21:11
PROC: 3E0234Z Introduction of Serum, Toxoid and Vaccine into Muscle, Percutaneous Approach (ICD-10-PCS; principal; 2019-07-06)
DX: S51.812A Laceration without foreign body of left forearm, initial encounter (principal); W22.8XXA Striking against or struck by other objects, initial encounter; Y93.E9 Activity, other interior property and clothing maintenance; Y92.038 Other place in apartment as the place of occurrence of the external cause; Y99.8 Other external cause status; J44.9 Chronic obstructive pulmonary disease, unspecified; J45.909 Unspecified asthma, uncomplicated; E11.9 Type 2 diabetes mellitus without complications; Z79.84 Long term (current) use of oral hypoglycemic drugs; E78.00 Pure hypercholesterolemia, unspecified; K70.30 Alcoholic cirrhosis of liver without ascites; B19.20 Unspecified viral hepatitis C without hepatic coma; Z90.81 Acquired absence of spleen
CPT/HCPCS: 90471; 90715; 99282-25

== ENCOUNTER 2020-10-06 10:58 | Emergency (ER) | payer OTHER ==
[2020-10-06 11:18] VITALS: BMI 34.7
[2020-10-06 12:33] VITALS: TEMP 97
[2020-10-06] MEDS ORDERED: ASPIRIN 81 MG CHEWABLE TABLETS PO ONE (12:39)
[2020-10-06] MEDS ORDERED: ACETAMINOPHEN 325 MG TABLET (FP) PO ONE (12:39)
[2020-10-06] MEDS ORDERED: ACETAMINOPHEN 325 MG TABLET (FP) ONE (12:51)
[2020-10-06] MEDS ORDERED: ASPIRIN 81 MG CHEWABLE TABLETS ONE (12:51)
[2020-10-06] MEDS ORDERED: valACYclovir HCL 1000 MG TABLET PO ONE (12:57)
[2020-10-06] MEDS ORDERED: valACYclovir HCL 500 MG TABLET (FP) ONE (13:15)
[2020-10-06 13:23] LABS: BASO % 1.2 % (0-2.0); EOS % 3.9 % (0-4.5); HEMATOCRIT 41.7 % (32.4-45.2); LYMPH % 30.6 % (8-40); MCH 31.4 pg (25.7-33.7); MCHC 33.6 g/dl (32.0-36.0); MEAN CELL VOLUME 93.3 fl (80-96); MEAN PLT VOLUME 10.7 fl (7.5-11.1); MONO % 9.3 % (3.8-10.2); PLATELET COUNT 199 K/MM3 (134-434); RBC 4.46 M/mm3 (3.60-5.2); RDW 15.1 % (11.6-15.6); WHITE BLOOD COUNT 8.9 K/mm3 (4.0-10.0)
[2020-10-06 13:34] LABS: INR 1.15 (0.83-1.09); PROTHROMBIN TIME (PATIENT) 13.9 SEC (9.7-13.0)
[2020-10-06 13:39] LABS: CHLORIDE 106 mmol/L (98-107); POTASSIUM 4.2 mmol/L (3.5-5.1); SODIUM 142 mmol/L (136-145)
[2020-10-06 13:43] LABS: CALCIUM 9.6 mg/dL (8.5-10.1)
[2020-10-06 13:44] LABS: ALBUMIN 3.8 g/dl (3.4-5.0); ANION GAP 9 MMOL/L (8-16); CO2 27 mmol/L (21-32); GLUCOSE,RANDOM 68 mg/dL (74-106)
[2020-10-06 13:47] LABS: CREATININE 0.8 mg/dL (0.55-1.3); SGOT/AST 68 U/L (15-37); SGPT/ALT 62 U/L (13-61)
[2020-10-06 13:49] LABS: BILIRUBIN,TOTAL 1.6 mg/dL (0.2-1); TOT PROT 7.7 g/dl (6.4-8.2)
[2020-10-06 13:50] LABS: ALK PHOS 135 U/L (45-117)
[2020-10-06] MEDS ORDERED: KETOROLAC TROMETHAMINE 30 MG/1 ML VIAL IVPUSH ONE (17:16)
[2020-10-06] MEDS ORDERED: KETOROLAC TROMETHAMINE 30 MG/1 ML VIAL ONE (17:22)
[2020-10-06 17:27] VITALS: BP 126/76; PULSE 72
== END 2020-10-06 18:13 | disposition home or self-care (01) ==
LOC: JER 10:58 → JERFT 10:58 → JER 18:13
PROC: 3E0333Z Introduction of Anti-inflammatory into Peripheral Vein, Percutaneous Approach (ICD-10-PCS; principal; 2020-10-06)
DX: M79.602 Pain in left arm (principal); B02.9 Zoster without complications
CPT/HCPCS: 36415; 71045-TC-FY; 80053; 82550; 84484; 85025; 85610; 93005; 93010; 99285-25

== ENCOUNTER 2020-12-08 21:32 | Observation (INO) | payer OTHER ==
[2020-12-08] MEDS ORDERED: ACETAMINOPHEN 1000 MG/100 ML VIAL (NON FORMULARY) IVPB ONE (22:51)
[2020-12-08 23:02] LABS: EOS % 0.9 % (0-4.5); HEMATOCRIT 39.6 % (32.4-45.2); HEMOGLOBIN 13.1 GM/dL (10.7-15.3); LYMPH % 36.3 % (8-40); MCH 31.5 pg (25.7-33.7); MCHC 33.1 g/dl (32.0-36.0); MONO % 8.9 % (3.8-10.2); NEUT % 52.9 % (42.8-82.8); PLATELET COUNT 188 K/MM3 (134-434); RBC 4.17 M/mm3 (3.60-5.2); RDW 14.9 % (11.6-15.6); WHITE BLOOD COUNT 7.6 K/mm3 (4.0-10.0)
[2020-12-08] MEDS ORDERED: ACETAMINOPHEN INJECTION 100 ML IVPB ONE (23:04)
[2020-12-08 23:29] LABS: CHLORIDE 105 mmol/L (98-107); SODIUM 140 mmol/L (136-145)
[2020-12-08 23:31] LABS: ALBUMIN 3.2 g/dl (3.4-5.0); ANION GAP 7 MMOL/L (8-16); BLOOD UREA NITROGEN 12.7 mg/dL (7-18); CO2 27 mmol/L (21-32)
[2020-12-08 23:32] LABS: GLUCOSE,RANDOM 94 mg/dL (74-106)
[2020-12-08 23:34] LABS: CREATININE 0.7 mg/dL (0.55-1.3)
[2020-12-08 23:35] LABS: SGOT/AST 66 U/L (15-37); SGPT/ALT 51 U/L (13-61)
[2020-12-08 23:36] LABS: BILIRUBIN,TOTAL 1.3 mg/dL (0.2-1); TOT PROT 7.2 g/dl (6.4-8.2)
[2020-12-08 23:37] LABS: ALK PHOS 165 U/L (45-117)
[2020-12-09] MEDS ORDERED: KETOROLAC TROMETHAMINE 30 MG/1 ML VIAL IVPUSH ONE (00:41)
[2020-12-09] MEDS ORDERED: KETOROLAC TROMETHAMINE 15 MG/ML VIAL ONE (00:49)
[2020-12-09] MEDS ORDERED: ALBUTEROL SO4 HFA INHALER IH PRN (05:15)
[2020-12-09] MEDS ORDERED: DOCUSATE SODIUM 100 MG CAPSULE (FP) PO ONE (06:29)
[2020-12-09] MEDS: DOCUSATE SODIUM 100 MG CAPSULE (FP) PO SCH ×3 (06:36→21:11)
[2020-12-09 06:47] LABS: EOS % 2.2 % (0-4.5); HEMATOCRIT 38.5 % (32.4-45.2); HEMOGLOBIN 12.9 GM/dL (10.7-15.3); LYMPH % 42.4 % (8-40); MCH 31.9 pg (25.7-33.7); MCHC 33.5 g/dl (32.0-36.0); MEAN CELL VOLUME 95.3 fl (80-96); MEAN PLT VOLUME 10.3 fl (7.5-11.1); MONO % 10.2 % (3.8-10.2); NEUT % 44.2 % (42.8-82.8); PLATELET COUNT 180 K/MM3 (134-434); RBC 4.04 M/mm3 (3.60-5.2); RDW 14.7 % (11.6-15.6); WHITE BLOOD COUNT 9.7 K/mm3 (4.0-10.0)
[2020-12-09 07:12] LABS: ALBUMIN 3.1 g/dl (3.4-5.0); CALCIUM 8.6 mg/dL (8.5-10.1)
[2020-12-09 07:13] LABS: BLOOD UREA NITROGEN 13.2 mg/dL (7-18); MAGNESIUM 1.6 mg/dL (1.8-2.4)
[2020-12-09 07:16] LABS: CREATININE 0.6 mg/dL (0.55-1.3); PHOSPHOROUS 4.1 mg/dL (2.5-4.9)
[2020-12-09 07:17] LABS: BILIRUBIN,TOTAL 1.6 mg/dL (0.2-1); TOT PROT 6.9 g/dl (6.4-8.2)
[2020-12-09] MEDS: INSULIN SLIDING SCALE (NOVOLOG) 1 VIAL SQ SCH ×4 (07:59→21:30)
[2020-12-09] MEDS ORDERED: ENOXAPARIN NA (PORCINE) 40 MG/0.4 ML DISP.SYRIN SQ ONE (08:25)
[2020-12-09] MEDS: ENOXAPARIN NA (PORCINE) 40 MG/0.4 ML DISP.SYRIN SQ SCH (11:00)
[2020-12-09] MEDS ORDERED: INSULIN (NOVOLOG) ASPART 100 UNITS/ML 10ML VIAL ONE (16:34)
[2020-12-09] MEDS ORDERED: ACETAMINOPHEN 325 MG TABLET (FP) PO PRN (17:44)
[2020-12-09] MEDS ORDERED: KETOROLAC TROMETHAMINE 10 MG TABLET PO PRN (17:48)
[2020-12-09 18:54] VITALS: BMI 34.5
[2020-12-09] MEDS ORDERED: KETOROLAC TROMETHAMINE 10 MG TABLET PO SCH (22:00)
[2020-12-10] MEDS: DOCUSATE SODIUM 100 MG CAPSULE (FP) PO SCH ×2 (06:04→15:39)
[2020-12-10] MEDS: INSULIN SLIDING SCALE (NOVOLOG) 1 VIAL SQ SCH ×3 (06:04→17:39)
[2020-12-10] MEDS: ENOXAPARIN NA (PORCINE) 40 MG/0.4 ML DISP.SYRIN SQ SCH (12:32)
[2020-12-10] MEDS ORDERED: ESCITALOPRAM OXALATE 10 MG TABLET PO SCH (13:00)
[2020-12-10 14:58] VITALS: TEMP 98.2
[2020-12-10 15:56] LABS: EPI CELLS 10 /uL (0-25.1); HYALINE CASTS 0 /uL (0-3.1); PH,URINE 7.5 (5.0-8.0); URINE APPEARANCE CLEAR; URINE BACTERIA 305 /uL (0-1359); URINE BILIRUBIN NEGATIVE (NEGATIVE); URINE COLOR YELLOW; URINE GLUCOSE (UA) 1+ (NEGATIVE); URINE KETONE NEGATIVE (NEGATIVE); URINE LEUK ESTERASE NEGATIVE (NEGATIVE); URINE NITRITE NEGATIVE (NEGATIVE); URINE PROTEIN 1+ (NEGATIVE); URINE RBC 75 /uL (0-23.9); URINE UROBILINOGEN 4.0 E.U/dl mg/dL (0.2-1.0); URINE WBC 12 /uL (0-25.8)
[2020-12-10 16:07] VITALS: BP 155/79; PULSE 76
== END 2020-12-10 19:00 | disposition home or self-care (01) ==
LOC: JER 21:32 → INTOOBSV 12-09 02:13 → JERBED 12-09 02:13 → J5S 12-09 15:47
PROVIDERS: ADMIT Hospitalist; ATTEND Nurse Practitioner Family
PROC: 3E033NZ Introduction of Analgesics, Hypnotics, Sedatives into Peripheral Vein, Percutaneous Approach (ICD-10-PCS; principal; 2020-12-09)
PROC: 3E023GC Introduction of Other Therapeutic Substance into Muscle, Percutaneous Approach (ICD-10-PCS; 2020-12-09)
PROC: 3E0333Z Introduction of Anti-inflammatory into Peripheral Vein, Percutaneous Approach (ICD-10-PCS; 2020-12-09)
DX: J44.9 Chronic obstructive pulmonary disease, unspecified (principal); R55 Syncope and collapse; G56.03 Carpal tunnel syndrome, bilateral upper limbs; M51.36 Other intervertebral disc degeneration, lumbar region; F32.9 Major depressive disorder, single episode, unspecified; M79.7 Fibromyalgia; I10 Essential (primary) hypertension; R29.6 Repeated falls; W18.39XA Other fall on same level, initial encounter; Y93.89 Activity, other specified; Y92.009 Unspecified place in unspecified non-institutional (private) residence as the place of occurrence of the external cause; M25.531 Pain in right wrist; Z29.9 Encounter for prophylactic measures, unspecified; B19.20 Unspecified viral hepatitis C without hepatic coma; K70.30 Alcoholic cirrhosis of liver without ascites; Z87.891 Personal history of nicotine dependence; R42 Dizziness and giddiness
CPT/HCPCS: 36415; 70450-TC; 71045-TC-FY; 71250-TC; 73110-TC-RT-FY; 73130-TC-RT-FY; 80053; 81003; 82962; 83036; 83735; 84100; 84484; 85025; 93005; 93010; 93306-TC; 93880-TC; 96372; 96374; 96375; 97116-GP; 97161-GP; 99285-25; C9803; G0378; J0131; U0003; U0005

== ENCOUNTER 2021-02-26 17:14 | Emergency (ER) | payer OTHER ==
[2021-02-26 17:38] VITALS: BP 145/87; PULSE 81; TEMP 98.2; BMI 32.9
[2021-02-26] MEDS ORDERED: KETOROLAC TROMETHAMINE 30 MG/1 ML VIAL IM ONE (17:50)
[2021-02-26] MEDS ORDERED: KETOROLAC TROMETHAMINE 30 MG/1 ML VIAL ONE (17:54)
== END 2021-02-26 21:09 | disposition home or self-care (01) ==
LOC: JERFT 17:14 → JER 17:14 → JERFT 21:09
PROC: 3E0233Z Introduction of Anti-inflammatory into Muscle, Percutaneous Approach (ICD-10-PCS; principal; 2021-02-26)
DX: M79.641 Pain in right hand (principal)
CPT/HCPCS: 73110-TC-RT-FY; 73130-TC-RT-FY; 99284-25

== ENCOUNTER 2021-04-12 18:36 | Observation (INO) | payer OTHER ==
[2021-04-12 18:48] VITALS: BMI 32.3
[2021-04-12 21:35] LABS: BASO % 0.6 % (0-2.0); EOS % 0.3 % (0-4.5); HEMATOCRIT 39.5 % (32.4-45.2); HEMOGLOBIN 13.5 GM/dL (10.7-15.3); LYMPH % 39.8 % (8-40); MCHC 34.3 g/dl (32.0-36.0); MEAN CELL VOLUME 90.4 fl (80-96); MONO % 10.2 % (3.8-10.2); NEUT % 49.1 % (42.8-82.8); PLATELET COUNT 157 10^3/uL (134-434); RBC 4.37 M/mm3 (3.60-5.2); RDW 15.7 % (11.6-15.6); WHITE BLOOD COUNT 9.7 K/mm3 (4.0-10.0)
[2021-04-12 21:51] LABS: CHLORIDE 105 mmol/L (98-107); SODIUM 138 mmol/L (136-145)
[2021-04-12 21:54] LABS: ALBUMIN 3.5 g/dl (3.4-5.0); ANION GAP 9 MMOL/L (8-16); BLOOD UREA NITROGEN 31.5 mg/dL (7-18); CALCIUM 9.2 mg/dL (8.5-10.1); CO2 25 mmol/L (21-32); GLUCOSE,RANDOM 118 mg/dL (74-106)
[2021-04-12 21:57] LABS: CREATININE 1.9 mg/dL (0.55-1.3); SGOT/AST 63 U/L (15-37); SGPT/ALT 60 U/L (13-61)
[2021-04-12 21:59] LABS: BILIRUBIN,TOTAL 1.8 mg/dL (0.2-1); TOT PROT 7.6 g/dl (6.4-8.2)
[2021-04-12 22:00] LABS: ALK PHOS 164 U/L (45-117)
[2021-04-12 22:27] LABS: EPI CELLS 22 /uL (0-25.1); HYALINE CASTS 10 /uL (0-3.1); PH,URINE 5.5 (5.0-8.0); URINE APPEARANCE CLOUDY; URINE BACTERIA 262 /uL (0-1359); URINE BILIRUBIN NEGATIVE (NEGATIVE); URINE COLOR DK YELLOW; URINE GLUCOSE (UA) NEGATIVE (NEGATIVE); URINE KETONE TRACE (NEGATIVE); URINE LEUK ESTERASE TRACE (NEGATIVE); URINE NITRITE NEGATIVE (NEGATIVE); URINE PROTEIN 1+ (NEGATIVE); URINE RBC 21 /uL (0-23.9); URINE WBC 18 /uL (0-25.8)
[2021-04-12] MEDS ORDERED: MECLIZINE HCL 25 MG TABLET (FP) PO ONE (23:26)
[2021-04-12] MEDS ORDERED: MECLIZINE HCL 25 MG TABLET (FP) ONE (23:48)
[2021-04-13 03:50] LABS: EPI CELLS 5 /uL (0-25.1); HYALINE CASTS 2 /uL (0-3.1); PH,URINE 5.5 (5.0-8.0); URINE APPEARANCE Clear; URINE BACTERIA 67 /uL (0-1359); URINE BILIRUBIN Negative (NEGATIVE); URINE COLOR Yellow; URINE GLUCOSE (UA) Negative (NEGATIVE); URINE KETONE Negative (NEGATIVE); URINE LEUK ESTERASE Negative (NEGATIVE); URINE NITRITE Negative (NEGATIVE); URINE PROTEIN Negative (NEGATIVE); URINE RBC 5 /uL (0-23.9); URINE UROBILINOGEN 0.2 mg/dL (0.2-1.0); URINE WBC 6 /uL (0-25.8)
[2021-04-13] MEDS ORDERED: SODIUM CHLORIDE 1,000 ML IV SCH ×2 (04:15→12:56)
[2021-04-13] MEDS: MECLIZINE HCL 25 MG TABLET (FP) PO SCH ×3 (06:36→22:36)
[2021-04-13] MEDS: HEPARIN NA (PORCINE) 5,000 UNITS/ML 1ML VIAL SQ SCH ×3 (06:36→22:36)
[2021-04-13] MEDS: INSULIN SLIDING SCALE (NOVOLOG) 1 VIAL SQ SCH ×4 (06:44→22:49)
[2021-04-13 07:31] LABS: BASO % 0.9 % (0-2.0); EOS % 2.3 % (0-4.5); HEMATOCRIT 37.3 % (32.4-45.2); HEMOGLOBIN 12.7 GM/dL (10.7-15.3); LYMPH % 43.4 % (8-40); MCH 30.9 pg (25.7-33.7); MCHC 34.1 g/dl (32.0-36.0); MEAN CELL VOLUME 90.6 fl (80-96); MEAN PLT VOLUME 9.9 fl (7.5-11.1); MONO % 10.7 % (3.8-10.2); NEUT % 42.7 % (42.8-82.8); PLATELET COUNT 154 10^3/uL (134-434); RBC 4.12 M/mm3 (3.60-5.2); RDW 15.6 % (11.6-15.6); WHITE BLOOD COUNT 8.8 K/mm3 (4.0-10.0)
[2021-04-13] MEDS ORDERED: POTASSIUM CHLORIDE ORAL LIQUID 20 MEQ/15 ML PO ONE (07:53)
[2021-04-13 07:55] LABS: ALBUMIN 3.2 g/dl (3.4-5.0); CALCIUM 8.8 mg/dL (8.5-10.1); MAGNESIUM 1.6 mg/dL (1.8-2.4)
[2021-04-13 07:56] LABS: CHOLESTEROL 121 mg/dL (50-200)
[2021-04-13 07:57] LABS: LDL CHOLESTEROL (ONLY SJRH) 52 mg/dL (5-100); TRIGLYCERIDES 62 mg/dL (0-150)
[2021-04-13 07:58] LABS: BILIRUBIN,TOTAL 1.7 mg/dL (0.2-1); PHOSPHOROUS 3.9 mg/dL (2.5-4.9); TOT PROT 6.9 g/dl (6.4-8.2)
[2021-04-13 07:59] LABS: HDL CHOLESTEROL 60 mg/dL (40-60)
[2021-04-13] MEDS ORDERED: ALBUTEROL SO4 HFA INHALER IH PRN (08:05)
[2021-04-13] MEDS ORDERED: DOCUSATE SODIUM 100 MG CAPSULE (FP) PO PRN (08:10)
[2021-04-13] MEDS: KCL 10 MEQ IVPB 10 MEQ/100 ML INFUS.BAG IVPB SCH ×3 (09:09→11:45)
[2021-04-13] MEDS: ESCITALOPRAM OXALATE 10 MG TABLET PO SCH (09:09)
[2021-04-13] MEDS: BUDESONIDE/FORMETEROL FUMARATE 160/4.5 mcg INHALER IH SCH ×2 (09:10→22:50)
[2021-04-13] MEDS ORDERED: MAGNESIUM SULF 50% (8.12 MEQ/2 ML-1 GM VIAL) IVPB ONE (09:13)
[2021-04-13] MEDS: ATORVASTATIN CA 10 MG TABLET (FP) PO SCH (22:35)
[2021-04-13] MEDS: SENNOSIDES 8.6MG TABLET (FP) PO SCH (22:43)
[2021-04-14] MEDS: MECLIZINE HCL 25 MG TABLET (FP) PO SCH ×3 (06:03→21:16)
[2021-04-14] MEDS: HEPARIN NA (PORCINE) 5,000 UNITS/ML 1ML VIAL SQ SCH ×3 (06:07→21:16)
[2021-04-14] MEDS: INSULIN SLIDING SCALE (NOVOLOG) 1 VIAL SQ SCH ×4 (07:30→21:20)
[2021-04-14 07:46] LABS: HEMATOCRIT 37.5 % (32.4-45.2); HEMOGLOBIN 12.9 GM/dL (10.7-15.3); MCH 31.3 pg (25.7-33.7); MCHC 34.4 g/dl (32.0-36.0); MEAN PLT VOLUME 10.3 fl (7.5-11.1); PLATELET COUNT 160 10^3/uL (134-434); RBC 4.13 M/mm3 (3.60-5.2); RDW 15.4 % (11.6-15.6); WHITE BLOOD COUNT 7.7 K/mm3 (4.0-10.0)
[2021-04-14 08:06] LABS: BLOOD UREA NITROGEN 14.5 mg/dL (7-18); CALCIUM 8.6 mg/dL (8.5-10.1)
[2021-04-14 08:08] LABS: MAGNESIUM 1.8 mg/dL (1.8-2.4)
[2021-04-14 08:10] LABS: CREATININE 0.6 mg/dL (0.55-1.3); PHOSPHOROUS 3.5 mg/dL (2.5-4.9)
[2021-04-14] MEDS: ASPIRIN COATED 81 MG TABLET.EC PO SCH (10:33)
[2021-04-14] MEDS: ESCITALOPRAM OXALATE 10 MG TABLET PO SCH (10:33)
[2021-04-14] MEDS: BUDESONIDE/FORMETEROL FUMARATE 160/4.5 mcg INHALER IH SCH ×2 (10:34→21:23)
[2021-04-14] MEDS ORDERED: IBUPROFEN 400 MG TABLET (FP) PO ONE (14:30)
[2021-04-14] MEDS: LOSARTAN POTASSIUM 50 MG TABLET PO SCH (17:00)
[2021-04-14] MEDS: ATORVASTATIN CA 10 MG TABLET (FP) PO SCH (21:16)
[2021-04-14] MEDS: SENNOSIDES 8.6MG TABLET (FP) PO SCH (21:16)
[2021-04-15] MEDS: HEPARIN NA (PORCINE) 5,000 UNITS/ML 1ML VIAL SQ SCH ×3 (05:06→21:10)
[2021-04-15] MEDS: INSULIN SLIDING SCALE (NOVOLOG) 1 VIAL SQ SCH ×4 (06:19→21:10)
[2021-04-15 08:09] LABS: HEMATOCRIT 37.8 % (32.4-45.2); HEMOGLOBIN 12.7 GM/dL (10.7-15.3); MCHC 33.7 g/dl (32.0-36.0); MEAN PLT VOLUME 10.2 fl (7.5-11.1); PLATELET COUNT 156 10^3/uL (134-434); RBC 4.11 M/mm3 (3.60-5.2); RDW 15.2 % (11.6-15.6); WHITE BLOOD COUNT 8.4 K/mm3 (4.0-10.0)
[2021-04-15 08:11] LABS: MYOGLOBIN SERUM < 21 ng/mL (25-58)
[2021-04-15 08:32] LABS: BLOOD UREA NITROGEN 12.7 mg/dL (7-18); CALCIUM 8.4 mg/dL (8.5-10.1)
[2021-04-15 08:33] LABS: MAGNESIUM 1.6 mg/dL (1.8-2.4)
[2021-04-15 08:36] LABS: CREATININE 0.5 mg/dL (0.55-1.3); PHOSPHOROUS 2.6 mg/dL (2.5-4.9)
[2021-04-15] MEDS ORDERED: MAGNESIUM SULF 50% (8.12 MEQ/2 ML-1 GM VIAL) IVPB ONE (08:54)
[2021-04-15] MEDS: ASPIRIN COATED 81 MG TABLET.EC PO SCH (09:49)
[2021-04-15] MEDS: LOSARTAN POTASSIUM 50 MG TABLET PO SCH (09:49)
[2021-04-15] MEDS: MECLIZINE HCL 25 MG TABLET (FP) PO SCH ×2 (09:50→21:10)
[2021-04-15] MEDS: BUDESONIDE/FORMETEROL FUMARATE 160/4.5 mcg INHALER IH SCH ×2 (09:50→21:12)
[2021-04-15] MEDS: ESCITALOPRAM OXALATE 10 MG TABLET PO SCH (09:50)
[2021-04-15] MEDS ORDERED: IBUPROFEN 400 MG TABLET (FP) PO PRN (11:35)
[2021-04-15] MEDS: IBUPROFEN 400 MG TABLET (FP) PO PRN ×2 (12:06→19:20)
[2021-04-15] MEDS: SENNOSIDES 8.6MG TABLET (FP) PO SCH (21:10)
[2021-04-15] MEDS: ATORVASTATIN CA 10 MG TABLET (FP) PO SCH (21:10)
[2021-04-16] MEDS: HEPARIN NA (PORCINE) 5,000 UNITS/ML 1ML VIAL SQ SCH ×2 (05:49→15:26)
[2021-04-16] MEDS: INSULIN SLIDING SCALE (NOVOLOG) 1 VIAL SQ SCH ×2 (06:43→12:33)
[2021-04-16] MEDS: ESCITALOPRAM OXALATE 10 MG TABLET PO SCH (09:54)
[2021-04-16] MEDS: MECLIZINE HCL 25 MG TABLET (FP) PO SCH (09:54)
[2021-04-16] MEDS: LOSARTAN POTASSIUM 50 MG TABLET PO SCH (09:54)
[2021-04-16] MEDS: ASPIRIN COATED 81 MG TABLET.EC PO SCH (09:54)
[2021-04-16] MEDS: BUDESONIDE/FORMETEROL FUMARATE 160/4.5 mcg INHALER IH SCH (09:55)
[2021-04-16] MEDS: IBUPROFEN 400 MG TABLET (FP) PO PRN (11:24)
[2021-04-16] MEDS ORDERED: PT OWN MED DRAWER 7, Y5N ONE (11:29)
[2021-04-16 16:06] VITALS: BP 145/75; PULSE 78; TEMP 98
== END 2021-04-16 18:14 ==
LOC: JER 18:36 → JERBED 23:39 → INTOOBSV 23:39 → J4W 04-13 04:08
PROVIDERS: ADMIT Internal Medicine; ATTEND Internal Medicine
PROC: 3E033GC Introduction of Other Therapeutic Substance into Peripheral Vein, Percutaneous Approach (ICD-10-PCS; principal; 2021-04-12)
PROC: 3E0337Z Introduction of Electrolytic and Water Balance Substance into Peripheral Vein, Percutaneous Approach (ICD-10-PCS; 2021-04-12)
DX: N17.9 Acute kidney failure, unspecified (principal); R79.89 Other specified abnormal findings of blood chemistry; R94.31 Abnormal electrocardiogram [ECG] [EKG]; J45.909 Unspecified asthma, uncomplicated; B19.20 Unspecified viral hepatitis C without hepatic coma; E11.9 Type 2 diabetes mellitus without complications; I11.0 Hypertensive heart disease with heart failure; F25.9 Schizoaffective disorder, unspecified; K74.60 Unspecified cirrhosis of liver; M54.9 Dorsalgia, unspecified; G89.29 Other chronic pain; E66.8 Other obesity; Z68.33 Body mass index [BMI] 33.0-33.9, adult; I47.1 Supraventricular tachycardia; E87.6 Hypokalemia; E83.42 Hypomagnesemia; Z87.891 Personal history of nicotine dependence; R26.2 Difficulty in walking, not elsewhere classified
CPT/HCPCS: 36415; 70450-TC; 70551-TC; 71046-TC-FY; 72131-TC; 76775-TC; 80048; 80053; 80061; 81003; 82085; 82550; 82553; 82962; 82977; 83735; 83874; 84100; 84443; 84484; 85025; 85027; 86706; 86708; 87350; 87517; 87522; 93005; 93010; 96361; 96365; 96375; 96376; 97116-GP; 97162-GP; 99285-25; C9803; G0378; J1644; U0003; U0005

== ENCOUNTER 2021-04-18 15:20 | Emergency (ER) | payer OTHER ==
[2021-04-18 15:49] VITALS: TEMP 98.3; BMI 32.0
[2021-04-18] MEDS ORDERED: ACETAMINOPHEN 500 MG TABLET (FP) PO ONE (16:25)
[2021-04-18] MEDS ORDERED: FAMOTIDINE 20 MG TABLET PO ONE (16:28)
[2021-04-18] MEDS ORDERED: FAMOTIDINE 20 MG/50 ML IVPB 20 MG/50 ML MG IVPB ONE ×2 (16:47→16:50)
[2021-04-18] MEDS ORDERED: ACETAMINOPHEN 325 MG TABLET (FP) ONE (16:50)
[2021-04-18 17:07] LABS: BASO % 1.2 % (0-2.0); EOS % 4.8 % (0-4.5); HEMATOCRIT 39.7 % (32.4-45.2); HEMOGLOBIN 13.8 GM/dL (10.7-15.3); LYMPH % 43.9 % (8-40); MCHC 34.8 g/dl (32.0-36.0); MEAN CELL VOLUME 91.9 fl (80-96); MEAN PLT VOLUME 10.4 fl (7.5-11.1); MONO % 10.2 % (3.8-10.2); NEUT % 39.9 % (42.8-82.8); PLATELET COUNT 176 10^3/uL (134-434); RBC 4.32 M/mm3 (3.60-5.2); RDW 15.8 % (11.6-15.6); WHITE BLOOD COUNT 8.4 K/mm3 (4.0-10.0)
[2021-04-18 17:16] LABS: INR 1.23 (0.83-1.09); PROTHROMBIN TIME (PATIENT) 14.8 SEC (9.7-13.0)
[2021-04-18 17:18] LABS: ACTIVATED PTT 35.4 SECONDS (25.2-36.5)
[2021-04-18 17:27] LABS: CHLORIDE 106 mmol/L (98-107); SODIUM 132 mmol/L (136-145)
[2021-04-18 17:29] LABS: CALCIUM 8.9 mg/dL (8.5-10.1)
[2021-04-18 17:30] LABS: ALBUMIN 2.9 g/dl (3.4-5.0); BLOOD UREA NITROGEN 13.5 mg/dL (7-18); CO2 24 mmol/L (21-32); GLUCOSE,RANDOM 126 mg/dL (74-106); MAGNESIUM 1.8 mg/dL (1.8-2.4)
[2021-04-18 17:33] LABS: CREATININE 0.7 mg/dL (0.55-1.3)
[2021-04-18 17:34] LABS: BILIRUBIN,TOTAL 1.2 mg/dL (0.2-1); TOT PROT 7.8 g/dl (6.4-8.2)
[2021-04-18 17:36] LABS: ALK PHOS 159 U/L (45-117)
[2021-04-18 18:10] LABS: ANION GAP 1 MMOL/L (8-16); SGOT/AST 160 U/L (15-37); SGPT/ALT 79 U/L (13-61)
[2021-04-18 19:37] VITALS: BP 139/76; PULSE 70
[2021-04-18 19:58] LABS: CALCIUM 9.3 mg/dL (8.5-10.1)
[2021-04-18 19:59] LABS: ALBUMIN 3.1 g/dl (3.4-5.0)
[2021-04-18 20:02] LABS: CREATININE 0.6 mg/dL (0.55-1.3)
[2021-04-18 20:03] LABS: BILIRUBIN,TOTAL 1.5 mg/dL (0.2-1)
[2021-04-18 20:04] LABS: TOT PROT 7.3 g/dl (6.4-8.2)
== END 2021-04-18 23:11 | disposition home or self-care (01) ==
LOC: JER 15:20
PROC: 3E033GC Introduction of Other Therapeutic Substance into Peripheral Vein, Percutaneous Approach (ICD-10-PCS; principal; 2021-04-18)
DX: R07.9 Chest pain, unspecified (principal); R94.5 Abnormal results of liver function studies
CPT/HCPCS: 36415; 71045-TC-FY; 76705-TC; 80053; 82140; 82550; 82553; 83735; 84100; 84484; 85025; 85610; 85730; 93005; 93010; 99285-25